=== PATIENT | female | born 1990 | race Caucasian/White ===

== ENCOUNTER 2020-07-10 15:20 | Outpatient (REF) | payer MEDICARE, MEDICAID, SELFPAY ==
--- NOTE | 2020-07-10 16:11 | XR_ITS ---
EXAMINATION: XR CHEST CLINICAL INFORMATION: Generalized lymphadenopathy. COMPARISON: None TECHNIQUE: 2 views of the chest were obtained. FINDINGS: No significant abnormality is noted involving the heart, lungs, mediastinum, bony thorax or soft tissues. XR/XR chest 2V IMPRESSION: Unremarkable examination.
[2020-07-10 16:23] LABS: Basophils Percent Auto 0.3 % (0-2); Eosinophils Percent Auto 1.1 % (0-4); Hematocrit 39.9 % (37-47); Hemoglobin 12.6 g/dl (12.0-16.0); Imm Gran Abs Auto 0.05 X10*3/uL (0.00-0.03); Imm Gran Pct Auto 1.3 % (0.0-0.4); Lymphocytes Absolute Auto 0.7 X10*3/uL (1.2-4.9); Lymphocytes Percent Auto 17.6 % (20-40); MANUAL DIFF FLAG SCAN; Mean Corpuscular HGB Conc 31.6 g/dl (31.0-35.0); Mean Corpuscular Hemoglobin 26.2 pg (27.0-33.0); Mean Platelet Volume 11.1 fL (9.4-12.3); Monocytes Absolute Auto 0.5 X10*3/uL (0.1-1.2); Monocytes Percent Auto 12.2 % (2-11); Neutrophils Absolute Auto 2.5 X10*3/uL (2.0-8.3); Neutrophils Percent Auto 67.5 % (45-73); Platelet Count 203 X10*3/uL (160-400); Red Blood Count 4.81 X10*6/uL (4.20-5.50); Red Cell Distribution Width 14.2 % (11.0-16.0); SCAN SMEAR FLAG 1; White Blood Count 3.8 X10*3/uL (4.8-10.8)
[2020-07-10 16:47] LABS: Anion Gap 9 (12-20); Blood Urea Nitrogen 21 mg/dL (9-16); Calcium 8.2 mg/dL (8.4-10.2); Carbon Dioxide 29 mmol/L (22-29); Chloride 109 mmol/L (96-108); Estimated Glomerular Filt Rate > 60; Glucose Random 82 mg/dL (60-115); Sodium 143 mmol/L (135-145)
[2020-07-10 16:55] LABS: SLIDE REVIEW VERIFIED
[2020-07-10 17:01] LABS: TSH reflex Free T4 1.83 mIU/mL (0.32-4.0)
== END 2020-07-10 15:21 | disposition home or self-care (01) ==
LOC: HO.LAB 15:20
PROVIDERS: PCP Student in an Organized Health Care Education/Training Program; Visit Provider Internal Medicine
DX: R53.83 Other fatigue (principal); R59.1 Generalized enlarged lymph nodes
CPT/HCPCS: 36415; 71046; 80048; 84443; 85025; 99212

== ENCOUNTER → 2020-08-21 15:47 | Outpatient (BNVA) | payer MEDICARE, MEDICAID, SELFPAY | PROVIDERS: PCP Student in an Organized Health Care Education/Training Program; Visit Provider Internal Medicine | DX: R59.1 Generalized enlarged lymph nodes (principal); R53.83 Other fatigue | CPT/HCPCS: 99212 ==

== ENCOUNTER 2020-10-30 15:49 | Outpatient (REF) | payer MEDICARE, MEDICAID, SELFPAY ==
--- NOTE | ~2020-10-30 | US_ITS ---
EXAMINATION: US RETROPERITONEAL LIMITED (RENAL ONLY) CLINICAL INFORMATION: History of kidney stones. COMPARISON: Ultrasound abdomen complete 01/08/2019 [address] 04/27/2018. CT abdomen and pelvis 11/02/2018. Renal ultrasound 12/09/2017 and 05/01/2017. TECHNIQUE: Real-time imaging of the kidneys. FINDINGS: RIGHT KIDNEY: 8.5 x 3.4 x 4.3 cm (SAG x AP x TRV). The kidney is normal in size and contour with slight increase echogenicity. Renal cortical thickness is normal. No focal parenchymal lesions or hydronephrosis. There there are echogenic calculi visualized. Upper pole calculi measures 0.5 x 0.3 x 0.3, mid pole calculi measure 0.5 x 0.3 x 0.5 cm and lower pole calculi measure 0.5 x 0.5 x 0.3 cm. LEFT KIDNEY: 10.2 x 5.1 x 6.0 cm (SAG x AP x TRV). The kidney is normal in size, contour, and echogenicity. Renal cortical thickness is normal. No focal parenchymal lesions or hydronephrosis. 2 echogenic stones are seen in left kidney as well. A midpole echogenic stone measures 0.6 x 0.4 x 0.4 cm, a lower pole echogenic stone measures 0.4 x 0.3 x 0.4 cm and a lower pole echogenic stone measures 0.6 x 0.3 x 0.4 cm. US/US renal BI IMPRESSION: Bilateral nonobstructive echogenic renal calculi. There is no hydronephrosis.
== END 2020-10-30 15:50 | disposition home or self-care (01) ==
LOC: HO.US 15:49
PROVIDERS: PCP Student in an Organized Health Care Education/Training Program; Visit Provider Internal Medicine Nephrology
DX: Z87.442 Personal history of urinary calculi (principal)
CPT/HCPCS: 76775

== ENCOUNTER 2021-03-25 12:04 | Outpatient (REF) | payer MEDICARE, MEDICAID, SELFPAY ==
[2021-03-25 13:42] LABS: MANUAL DIFF FLAG NO
[2021-03-25 14:03] LABS: Basophils Percent Auto 0.3 % (0-2); Eosinophils Percent Auto 0.6 % (0-4); Hematocrit 35.2 % (37-47); Hemoglobin 11.3 g/dl (12.0-16.0); Imm Gran Abs Auto 0.02 X10*3/uL (0.00-0.03); Imm Gran Pct Auto 0.6 % (0.0-0.4); Lymphocytes Absolute Auto 0.4 X10*3/uL (1.2-4.9); Lymphocytes Percent Auto 11.4 % (20-40); Mean Corpuscular HGB Conc 32.1 g/dl (31.0-35.0); Mean Corpuscular Hemoglobin 26.5 pg (27.0-33.0); Mean Corpuscular Volume 82.4 fL (80-98); Mean Platelet Volume 12.2 fL (9.4-12.3); Monocytes Absolute Auto 0.3 X10*3/uL (0.1-1.2); Monocytes Percent Auto 9.5 % (2-11); Neutrophils Absolute Auto 2.5 X10*3/uL (2.0-8.3); Neutrophils Percent Auto 77.6 % (45-73); Platelet Count 178 X10*3/uL (160-400); Red Blood Count 4.27 X10*6/uL (4.20-5.50); White Blood Count 3.2 X10*3/uL (4.8-10.8)
[2021-03-25 14:19] LABS: Anion Gap 11 (12-20); Blood Urea Nitrogen 19 mg/dL (9-16); Calcium 9.3 mg/dL (8.4-10.2); Carbon Dioxide 21 mmol/L (22-29); Chloride 112 mmol/L (96-108); Estimated Glomerular Filt Rate > 60; Iron 96 mcg/dL (30-160); Percent Iron Saturation 39 % (15-50); Potassium 3.3 mmol/L (3.3-5.1); Sodium 141 mmol/L (135-145); Total Iron Binding Capacity 248 mcg/dL (228-428); Unsaturated Iron Binding 152 ug/dL; Uric Acid 3.2 mg/dL (2.4-5.7)
[2021-03-25 14:40] LABS: Ferritin 399 ng/mL (10-122)
[2021-03-25 16:01] LABS: Appearance Urine HAZY; Color Urine YELLOW; Glucose Urine UA NEG (NEG); Leukocyte Esterase Urine NEG (NEG); Nitrite Urine NEG (NEG); PH 6.5 (5.0-8.0); Urine Blood 3+ (NEG); Urine Ketones NEG (NEG); Urine Protein 1+ MG/DL (NEG-TRACE)
[2021-03-25 16:09] LABS: Creatinine Urine 154.95 mg/dL; Microalbum/Creatinine Ratio Ur 31.6 ug/mg cr; Protein/Creatinine Ratio, Ur 0.28 (<0.2); Total Protein Urine Random 43 mg/dL (<12)
[2021-03-25 16:42] LABS: Squamous Epithelial Cell Urine 1+ /LPF
[2021-03-25 16:44] LABS: Bacteria Urine 1+ /LPF
== END 2021-03-25 12:05 | disposition home or self-care (01) ==
LOC: HO.LAB 12:04
PROVIDERS: PCP Student in an Organized Health Care Education/Training Program; Visit Provider Internal Medicine Nephrology
DX: D68.62 Lupus anticoagulant syndrome (principal); Z87.442 Personal history of urinary calculi
CPT/HCPCS: 36415; 80051; 81001; 81003; 82043; 82310; 82565; 82728; 83540; 84156; 84520; 84550; 85025

== ENCOUNTER → 2021-08-21 16:11 | Outpatient (BNVA) | payer MEDICARE, MEDICAID, SELFPAY | PROVIDERS: PCP Student in an Organized Health Care Education/Training Program; Visit Provider Internal Medicine | DX: J45.909 Unspecified asthma, uncomplicated (principal); R91.8 Other nonspecific abnormal finding of lung field; R59.1 Generalized enlarged lymph nodes; R53.83 Other fatigue | CPT/HCPCS: 99212 ==

== ENCOUNTER 2024-04-15 07:57 | Emergency (ER) | payer OTHER, SELFPAY ==
--- NOTE | ~2024-04-15 | XR_ITS ---
EXAMINATION: XR CHEST CLINICAL INFORMATION: Dizziness COMPARISON: 07/10/2020. TECHNIQUE: AP and lateral views of the chest FINDINGS: The cardiac, hilar, and mediastinal contours are normal. The lungs demonstrate hazy opacity in the right base on the frontal projection, not definitively present on the lateral projection. This could be artifact or early developing pneumonia. This does represent a change from prior radiographs. Left lung is clear. No effusions or pneumothoraces. No soft tissue or bony abnormalities. XR/XR chest 2V IMPRESSION: 1. Patchy opacity in the right base on the frontal projection, not definitively verifiable on the lateral projection. Findings may be secondary to artifact from overlapping structures, however could represent an early developing pneumonic consolidation. Correlate with clinical symptomatology. 2. Lungs otherwise clear. Heart and mediastinal contours normal. Electronically signed by: Nathan Ivory MD 04/15/2024 09:54 AM EDT
--- NOTE | ~2024-04-15 | CT_ITS ---
EXAMINATION: CT HEAD WITHOUT CONTRAST CLINICAL INFORMATION: Lightheadedness. COMPARISON: None available. TECHNIQUE: Contiguous axial imaging was performed from the skull base to vertex without intravenous administration of contrast. This CT examination was performed using dose optimization techniques as appropriate, variously including the following: *Automated exposure control *Adjustment of mA and/or kV according to patient size (this includes techniques or standardized protocols for targeted exams where dose is matched to indication/reason for exam; i.e. extremities or head) *Use of iterative reconstruction technique DLP: 591 mGy-cm FINDINGS: No acute intracranial hemorrhage. No mass effect or midline shift. No parenchymal lesion. The العلي-white differentiation is maintained. No extra-axial fluid collection. The ventricles and sulci are unremarkable. The basal cisterns are patent. The calvarium is intact. The visualized paranasal sinuses and mastoid air cells are clear. CT/CT head/brain wo IV con IMPRESSION: No acute intracranial pathology. Electronically signed by: River Ramachandran MD 04/15/2024 10:59 AM EDT
[2024-04-15 08:12] VITALS: BP 137/84; PULSE 79; RESP 18; TEMP 37; O2SAT 100; BMI 18.1
--- NOTE | 2024-04-15 08:31 | ED_ITS ---
HPI - General Adult General Chief complaint: Dizziness Stated complaint: lightheaded, fall Time Seen by Provider: 04/15/24 08:30 Source: patient Mode of arrival: ambulatory Limitations: no limitations History of Present Illness ED Provider: Chata Tanner PA-C HPI narrative: Patient is a 33 year old assigned female at with no reported medical history presenting to the emergency department today with lightheadedness. Patient states that this morning she became lightheaded and felt like she was going to pass out. Patient states that she still feels lightheaded but lying down help some. Patient denies any dizziness, abdominal pain, nausea, vomiting, fever, chills, blurry vision, double vision, loss of vision, chest pain, difficulty breathing, shortness of breath, back pain, night sweats, pain with urination, increased urinary frequency, increased urinary urgency, blood in her urine or stool, syncope or a near syncopal episode, recent trauma or falls, bowel incontinence, bladder incontinence, or any other complaints at this time. Relieving factors: none Exacerbating factors: none Associated symptoms: denies other symptoms Treatments prior to arrival: none Related Data Home Medications ?Medication ?Instructions ?Recorded ?Confirmed cetirizine 10 mg tablet (Zyrtec) 10 mg PO DAILY PRN 07/10/20 07/10/20 hydroxychloroquine 200 mg tablet 200 mg PO DAILY 08/21/21 (Plaquenil) prednisone 10 mg tablet 15 mg PO DAILY 08/21/21 Allergies Allergy/AdvReac Type Severity Reaction Status Date / Time metronidazole [From FLAGYL] Allergy Unknown UNKNOWN Verified 04/15/24 08:14 Review of Systems 2 Constitutional: Constitutional: Reports no additional constitutional complaints, Denies chills, Denies fever(s) and Denies night sweats Comments: lightheadedness Eyes: Eyes: Reports no additional eye complaints, Denies blurry vision, Denies change in vision, Denies diplopia, Denies eye discharge, Denies loss of vision and Denies eye pain ENT: Denies dizziness Cardiovascular: Cardiovascular: Reports no additional cardiovascular complaints, Denies chest pain, Denies lightheadedness, Denies Loss of Consciousness and Denies dyspnea Respiratory: Respiratory: Reports no additional respiratory complaints and Denies dyspnea Gastrointestinal: Gastrointestinal: Reports no additional gastrointestinal complaints, Denies abdominal pain, Denies melena, Denies hematochezia, Denies change in bowel habits and Denies change in stool character Genitourinary: Genitourinary: Denies hematuria, Denies urinary frequency, Denies dysuria, Denies urinary incontinence, Denies urinary hesitancy and Denies urinary urgency Musculoskeletal: Musculoskeletal: Reports no additional musculoskeletal complaints, Denies numbness and Denies tingling Neurologic: Denies dizziness, Denies loss of vision, Denies numbness and Denies tingling Psychiatric: Psychiatric: Reports no additional psychiatric complaints Endocrine: Endocrine: Reports no additional endocrine complaints Hematologic/Lymphatic: Hematologic/Lymphatic: Reports no additional hematologic/lymphatic complaints Allergic/Immunologic: Allergic/Immunologic: Reports no additional allergic/immunologic complaints [facility] Past Medical History Attestation statement: The following information was validated with the patient. Source: old records reviewed and nursing notes reviewed Medical History Lymphadenopathy Fatigue Social History Social History Smoked in Last 30 Days: No Advance Directives: No Advance Directives Information Provided: No Do you have a plan to hurt others: No Plan Physical Exam ED Vital Signs: Vital Signs - 24 hr 04/15/24 08:12 04/15/24 08:41 04/15/24 11:32 Temperature 98.6 F 98.7 F 98.7 F Pulse Rate 79 69 69 Respiratory Rate 18 18 18 Blood Pressure 137/84 125/81 125/81 Pulse Oximetry 100 100 100 Oxygen Delivery Method Room Air Room Air Room Air BMI result Body Mass Index 18.1 Const General: cooperative, no acute distress, alert and awake Nutritional Appearance: well nourished Orientation/consciousness: patient oriented x3 Limitations: no limitations [facility] Head: Yes normal to inspection and Yes atraumatic Ears: hearing grossly normal bilaterally and external ears normal General nose exam: Normal external nose present, no nasal discharge noted and no epistaxis Face and sinus: Yes normal facial exam, No abrasion and No laceration Mouth: Normal oral and palatal mucosa present, no drooling and no muffled voice Eyes General: appearance normal, both eyes and all related structures Periorbital: periorbital findings normal Eyelids: Yes eyelids normal Conjunctivae: conjunctivae normal Pupils: Equal, round and reactive pupils present EOM: EOMs intact bilaterally Neck Neck: Yes normal visual inspection, Yes full ROM and Yes no lymphadenopathy Chest Chest palpation & inspection: normal inspection of the chest Resp Effort & Inspection: normal respiratory effort and able to speak in complete sentences GI Inspection: Yes normal to inspection Neuro General: patient oriented x3 and moves all extremities Cranial nerves: Yes Equal, round and reactive pupils present Cognition (Neuro): normal cognition Extrem General: Yes normal to inspection, Yes full ROM and Yes capillary refill normal Psych Appearance: grossly normal Mental Status: mental status grossly normal Affect: normal affect Attitude: cooperative Thought process: Normal thought process present Thought content: Normal thought content present Insight: Good insight present (Psych) Medical Decision Making Medical Decision Making MDM Narrative: Patient is a 33 year old assigned female at with no reported medical history presenting to the emergency department today with lightheadedness. Patient's physical exam was unremarkable. Patient's blood work was unremarkable. Patient's urine showed no acute process. Patient's EKG was unremarkable. Patient's chest x-ray and head CT showed no acute process. I explained my physical exam findings as well as all test results to the patient and the patient's partner. I answered all questions asked by the patient and the patient's partner. Patient was able to tolerate PO fluid while in the department and was encouraged to increase her PO fluid intake. I stressed the importance of the patient taking her medication as directed (either prescribed or as the over the counter packaging recommends). I stressed the importance of the patient following up with her primary care provider. I stressed the importance of the patient returning to the emergency department immediately if her symptoms were to worsen or if she were to develop any dizziness, shortness of breath, difficulty breathing, chest pain, blurry vision, loss of vision, nausea, vomiting, abdominal pain, fever, chills, back pain, or any other complaints. Patient and the patient's partner verbalized agreement and understanding with this treatment plan and discharge. Differential Diagnosis Differential Diagnoses: The differential diagnosis associated with the presentation includes Lightheadedness Electrolyte abnormality Hypoglycemia Near syncope Orthostatic hypotension Admission/Observation Consideration of admission/observation: Escalation of care including admission/observation considered Patient would have been admitted to the hospital had her work up had any findings where hospital admission was appropriate and her clinical presentation warranted hospital admission. Lab Data [facility] Lab Attestation statement: I reviewed the patient's lab results. My interpretation of these results are in the [facility] Rationale portion of this note. 04/15/24 08:08 04/15/24 08:25 Labs: Lab Results 04/15/24 04/15/24 04/15/24 Range/Units 08:08 08:25 08:49 WBC 2.1 L (4.8-10.8) X10*3/uL RBC 4.14 L (4.20-5.50) X10*6/uL Hgb 11.1 L (12.0-16.0) g/dl Hct 34.1 L (37.0-47.0) % MCV 82.4 (80.0-98.0) fL MCH 26.8 L (27.0-33.0) pg MCHC 32.6 (31.0-35.0) g/dl RDW 14.3 (11.0-16.0) % Plt Count 147 L (160-400) X10*3/uL MPV 11.2 (9.4-12.3) fL Immature Gran % (Auto) 0.5 H (0.0-0.4) % Neut % (Auto) 66.1 (45-73) % Lymph % (Auto) 16.0 L (20-40) % [place] % (Auto) 16.9 H (2-11) % Eos % (Auto) 0.0 (0-4) % Baso % (Auto) 0.5 (0-2) % Lymph # (Auto) 0.3 L (1.2-4.9) X10*3/uL [place] # (Auto) 0.4 (0.1-1.2) X10*3/uL Eos # (Auto) 0.0 (0.0-0.4) X10*3/uL Baso # (Auto) 0.0 (0.0-0.2) X10*3/uL Abs Immat Gran (auto) 0.01 (0.00-0.03) X10*3/uL Absolute Neuts (auto) 1.4 L (2.0-8.3) x10*3/uL Absolute Nucleated RBC 0.000 (0.0-0.012) X10*3/uL Nucleated RBC % (auto) 0.0 (0.0-0.2) /100WBC Sodium 140 (135-145) mmol/L Potassium 3.6 (3.3-5.1) mmol/L Chloride 109 H (96-108) mmol/L Carbon Dioxide 25 (22-29) mmol/L Anion Gap 10 L (12-20) BUN 15 (9-16) mg/dL Creatinine 0.86 (0.5-1.4) mg/dL Estim Creat Clear Calc 71.1 Estimated GFR > 60 Random Glucose 87 (60-115) mg/dL Calcium 9.1 (8.4-10.2) mg/dL Total Bilirubin 0.4 (0.0-1.0) mg/dL AST 16 (5-31) U/L ALT 14 (0-31) U/L Alkaline Phosphatase 66 (39-117) U/L Total Protein 7.8 (6.5-8.0) g/dL Albumin 4.4 (3.5-5.0) g/dL Beta HCG, Quant < 2 mIU/mL Urine Color Yellow Urine Appearance Clear Urine pH 6.5 (5.0-9.0) Ur Specific [place] 1.020 (1.005-1.025) Urine Protein 30 (1+) H (Neg-Trace) mg/dL Urine Glucose (UA) Negative (Negative) mg/dL Urine Ketones Negative (Negative) mg/dL Urine Blood Negative (Negative) Urine Nitrite Negative (Negative) Ur Leukocyte Esterase Negative (Negative) Urine RBC 0-2 (0-2) /HPF Urine WBC 0-5 (0-5) /HPF Ur Squamous Epith Cells 3-5 (0-2) /HPF Urine Bacteria None Seen (None Seen) Hyaline Casts 0-2 (0-2) /LPF Influenza Type A (PCR) NEGATIVE (Negative) Influenza Type B (PCR) NEGATIVE (Negative) RSV RNA Qual (PCR) NEGATIVE (Negative) SARS-CoV-2 RNA (RT-PCR) NEGATIVE (Negative) Independent Interpretation I performed an independent interpretation of an: EKG, Plain X-Ray and CT Scan Interpretation: My interpretation is in agreement with the radiologist's impression of these imaging studies. L EXAMINATION: XR CHEST CLINICAL INFORMATION: Dizziness COMPARISON: 07/10/2020. TECHNIQUE: AP and lateral views of the chest FINDINGS: The cardiac, hilar, and mediastinal contours are normal. The lungs demonstrate hazy opacity in the right base on the frontal projection, not definitively present on the lateral projection. This could be artifact or early developing pneumonia. This does represent a change from prior radiographs. Left lung is clear. No effusions or pneumothoraces. No soft tissue or bony abnormalities. XR/XR chest 2V IMPRESSION: 1. Patchy opacity in the right base on the frontal projection, not definitively verifiable on the lateral projection. Findings may be secondary to artifact from overlapping structures, however could represent an early developing pneumonic consolidation. Correlate with clinical symptomatology. 2. Lungs otherwise clear. Heart and mediastinal contours normal. Electronically signed by: Nathan Ivory MD 04/15/2024 09:54 AM EDT [employer] Dictated By: Nathan Ivory MD Signed By: Electronically signed by Nathan Ivory MD 04/15/24 0954 EXAMINATION: CT HEAD WITHOUT CONTRAST CLINICAL INFORMATION: Lightheadedness. COMPARISON: None available. TECHNIQUE: Contiguous axial imaging was performed from the skull base to vertex without intravenous administration of contrast. This CT examination was performed using dose optimization techniques as appropriate, variously including the following: *Automated exposure control *Adjustment of mA and/or kV according to patient size (this includes techniques or standardized protocols for targeted exams where dose is matched to indication/reason for exam; i.e. extremities or head) *Use of iterative reconstruction technique DLP: 591 mGy-cm FINDINGS: No acute intracranial hemorrhage. No mass effect or midline shift. No parenchymal lesion. The العلي-white differentiation is maintained. No extra-axial fluid collection. The ventricles and sulci are unremarkable. The basal cisterns are patent. The calvarium is intact. The visualized paranasal sinuses and mastoid air cells are clear. CT/CT head/brain wo IV con IMPRESSION: No acute intracranial pathology. Electronically signed by: River Ramachandran MD 04/15/2024 10:59 AM EDT RP Dictated By: River Ramachandran MD Signed By: Electronically signed by River Ramachandran MD 04/15/24 1059 Vent. Rate: 068 BPM Atrial Rate: 068 BPM P-R Int: 106 ms QRS Dur: 084 ms QT Int: 392 ms P-R-T Axes: 049 077 068 degrees QTc Int: 416 ms Sinus rhythm with short NE Otherwise normal ECG When compared with ECG of 22-JUN-2017 01:33, No significant change was found DD/ [id number] Radiology Impression Discussion of test interpretation with radiology: I have reviewed the radiologist's reading. Independent Historian Clinical information obtained from an independent historian. History obtained from or confirmed by: Other (patient's partner provided additional history and confirmed the history provided by the patient.) Discharge Plan Discharge Clinical Impression: Light-headedness Patient Disposition: Home, Self-Care Instructions: Lightheadedness (ED) Additional Instructions: Follow up with your primary care provider. Return to the emergency department immediately if your symptoms worsen or if you develop any dizziness, shortness of breath, difficulty breathing, chest pain, blurry vision, loss of vision, nausea, vomiting, abdominal pain, fever, chills, back pain, or any other complaints. Prescriptions: No Action cetirizine [Zyrtec] 10 mg tablet 10 mg PO DAILY PRN prednisone 10 mg tablet 15 mg PO DAILY hydroxychloroquine [Plaquenil] 200 mg tablet 200 mg PO DAILY Referrals: [facility] [place] Family Medicine [Provider Group] (Call to establish and follow up with a primary care provider. If you already have a primary care provider, please follow up with them.) [facility] [place] [facility] [Provider Group] (Call to establish and follow up with a primary care provider. If you already have a primary care provider, please follow up with them.) [facility] [place] [facility] [Provider Group] (Call to establish and follow up with a primary care provider. If you already have a primary care provider, please follow up with them.) Stand Alone Forms: Work/School Release Interventions: ED Discharge Assessment Last Done: 04/15/24 11:32 Discharge Date/Time: 04/15/24 11:32 Print Language: Tanzanian
--- NOTE | 2024-04-15 08:32 | ECG_ITS ---
Test Reason : dizziness Blood Pressure : / mmHG Vent. Rate : 068 BPM Atrial Rate : 068 BPM P-R Int : 106 ms QRS Dur : 084 ms QT Int : 392 ms P-R-T Axes : 049 077 068 degrees QTc Int : 416 ms Sinus rhythm with short ID Otherwise normal ECG When compared with ECG of 22-JUN-2017 01:33, No significant change was found Referred By: Chata Tanner Electronically Signed By:DEE SOLANO
[2024-04-15 08:34] LABS: Basophils Percent Auto 0.5 % (0-2); Hematocrit 34.1 % (37.0-47.0); Hemoglobin 11.1 g/dl (12.0-16.0); Imm Gran Abs Auto 0.01 X10*3/uL (0.00-0.03); Imm Gran Pct Auto 0.5 % (0.0-0.4); Lymphocytes Absolute Auto 0.3 X10*3/uL (1.2-4.9); Mean Corpuscular HGB Conc 32.6 g/dl (31.0-35.0); Mean Corpuscular Hemoglobin 26.8 pg (27.0-33.0); Mean Corpuscular Volume 82.4 fL (80.0-98.0); Mean Platelet Volume 11.2 fL (9.4-12.3); Monocytes Absolute Auto 0.4 X10*3/uL (0.1-1.2); Monocytes Percent Auto 16.9 % (2-11); Neutrophils Absolute Auto 1.4 x10*3/uL (2.0-8.3); Neutrophils Percent Auto 66.1 % (45-73); Platelet Count 147 X10*3/uL (160-400); Red Blood Count 4.14 X10*6/uL (4.20-5.50); Red Cell Distribution Width 14.3 % (11.0-16.0)
[2024-04-15 08:41] VITALS: BP 125/81; PULSE 69; RESP 18; TEMP 37.1; O2SAT 100
[2024-04-15 08:41] LABS: White Blood Count 2.1 X10*3/uL (4.8-10.8)
--- NOTE | 2024-04-15 08:48 | PC.NURSE ---
pt is alert and oriented, skin appropriate for ethnicity, respirations even and unlabored, ls clear, pt reports while making her breakfast started to feel lightheaded to the point that she almost fell down, but never actual fell down, also states she had a hard time breathing when this occurred but thinks its because she was worried/scared, does states that the lightheadedness improved but still there, denies headache and no visual disturbances. all nuero's intact, no visible facial droop/no drift and hand grasp strong and equal, vs stable at this time
[2024-04-15 08:50] LABS: Alanine Aminotransferase 14 U/L (0-31); Albumin Level 4.4 g/dL (3.5-5.0); Alkaline Phosphatase 66 U/L (39-117); Anion Gap 10 (12-20); Aspartate Amino Transferase 16 U/L (5-31); Bilirubin Total 0.4 mg/dL (0.0-1.0); Blood Urea Nitrogen 15 mg/dL (9-16); Calcium 9.1 mg/dL (8.4-10.2); Carbon Dioxide 25 mmol/L (22-29); Chloride 109 mmol/L (96-108); Creatinine Clr Calc Pharmacy 71.1; Estimated Glomerular Filt Rate > 60; Glucose Random 87 mg/dL (60-115); Potassium 3.6 mmol/L (3.3-5.1); Sodium 140 mmol/L (135-145); Total Protein 7.8 g/dL (6.5-8.0)
[2024-04-15 08:59] LABS: Appearance Urine Clear; Color Urine Yellow; Glucose Urine UA Negative (Negative); Leukocyte Esterase Urine Negative (Negative); Nitrite Urine Negative (Negative); PH 6.5 (5.0-9.0); UMIC TRIGGER UACC YES; Urine Blood Negative (Negative); Urine Ketones Negative (Negative); Urine Protein 30 (1+) mg/dL (Neg-Trace)
[2024-04-15 09:04] LABS: Bacteria Urine None Seen (None Seen); Hyaline Casts Urine 0-2 /LPF (0-2); RBC Urine 0-2 /HPF (0-2); WBC Urine 0-5 /HPF (0-5)
[2024-04-15 09:16] LABS: HCG Quantitative < 2 mIU/mL
[2024-04-15 09:35] LABS: Influenza A PCR NEGATIVE (Negative); Influenza B PCR NEGATIVE (Negative); Resp Syncy Virus RNA Qual PCR NEGATIVE (Negative); SARS COV2 PCR INHOUSE NEGATIVE (Negative)
--- NOTE | 2024-04-15 10:00 | PC.NURSE ---
holding off on the IV fluids do to the shortage of IV fluids, pt is currently tolerating po liquids and hoping that the pt's symptoms will improve with po hydration
[2024-04-15 11:32] VITALS: BP 125/81; PULSE 69; RESP 18; TEMP 37.1; O2SAT 100
== END 2024-04-15 11:32 | disposition home or self-care (01) ==
PROVIDERS: Physician Assistant Medical; Emergency Provider Emergency Medicine
DX: R42 Dizziness and giddiness (principal); Z03.818 Encounter for observation for suspected exposure to other biological agents ruled out
CPT/HCPCS: 0241U; 36415; 70450; 71046; 80053; 81001; 81003; 84702; 85025; 93005; 99284

== ENCOUNTER → 2024-04-15 08:32 | Outpatient (BNV) | payer OTHER, SELFPAY | PROVIDERS: Emergency Provider Emergency Medicine; Visit Provider Radiology Diagnostic Radiology | DX: R42 Dizziness and giddiness (principal) | CPT/HCPCS: 71046 ==

== ENCOUNTER → 2024-04-15 08:32 | Outpatient (BNV) | payer OTHER, SELFPAY | PROVIDERS: Emergency Provider Emergency Medicine; Visit Provider Internal Medicine | DX: R42 Dizziness and giddiness (principal) | CPT/HCPCS: 93010 ==

== ENCOUNTER 2025-06-01 20:26 | Emergency (ER) | payer OTHER, SELFPAY ==
--- OUTSIDE RECORDS SUMMARY | 2025-05-29 11:30 | XMS_ITS | Encounter Summary ---
Author Organization [employer] Address [address] [place] [address] Care Team Providers Care Structural Fitter Name Role Phone Oksana Nicole RETAIL PHARMACIST Primary Care Provider [phone] [phone] Reason for Visit * Reason Comments Dental Pain Pt came in as an johanna rgency with pain on her lower right side . 1 pa taken Encounter Details Date Type Department Care Team (Late st Contact Info) Description 05/29/2025 11:30 AM EST Office Visit [facility] ADULT DENTAL [address] [place] [address] Michael Adams, ASIAS [address] [place] [address] Open fracture of tooth, initial encounter (Primary Dx); Pain, dental Social History Tobacco Use Types Packs/Day Years Used Date Smoking Tobacco: Never Passive Smoke Exposure: Never Smokeless Tobacco: Never Alcohol Use Standard Drinks/Week Comments Defer 0 (1 standard drink = 0.6 oz pur e alcohol) Alcohol Answer Date Recorded How often do you have a drink containing alcohol ? 0 05/29/2025 Average Number of Drinks Not on file 025 How often do you have six or more drinks on one occasion? 0 05/29/2025 Depression Answer Date Recorded Patient Health Questionnaire-9 Score 3 05/05/2025 Patient Health Questionnaire-9 Score 3 05/05/2025 Last PHQ-9: Questionnaire Data Not on file 1 07/05/2024 Housing Stability Answer Date Recorded What is your housing situation today? I have prem candelaria 05/05/[address] you li ve. Do you have problems with any of the following? None of the above 05/05/2025 Food Insecurity Answer Date Recorded Within the past 12 months, y ou worried that your food would run out before you got money to buy more: Sometimes True 2024 Within the past 12 months,th e food you bought just didn't last and you didn't have enough money to get more: Sometimes True 05/05/2025 Transportation Answer Date Recorded In the past 12 months, has l ack of transportation kept you from medical appts, meetings, work or from getting things needed for daily living? Yes, it has kept me from medical appointments or getting medications. 05/05/2025 Utilities Answer Date Recorded In the past 12 months, has t he electric, gas, oil or water company threatened to shut off services in your home? No 05/05/2025 Depression Answer Date Recorded Patient Health Questionnaire-2 Score 0 05/05/2025 Internet Access Answer Date Recorded Internet Access Q1 Yes 05/05/2025 Internet Access Q2 Not on file 05/05/2025 Comments Unknown Sex and Gender Information Value Date Recorded Sex Assigned at Female 04/28/2022 10:15 AM EDT Legal Sex Female 10:15 AM EDT Gender Identity Female 02/11/2024 8:14 AM EDT Sexual Orientation Don't know 02/11/2024 8: 13 AM EDT documented as of this encounter Last Filed Vital Signs Vital Sign Reading Time Taken Comments Blood Pressure 116/66 05/29/2025 11:39 AM EST Pulse - - Temperature - - Respiratory Rate - - Oxygen Saturation - - Inhaled Oxygen Concentration - - Weight - - Height - - Body Mass Index - - documented in this encounter Progress Notes * Michael Adams DDS - 05/29/2025 11:30 AM EST Patient ID: Bert Sahu is a 35 y.o. female. Time Out: Timeout Date: 05/29/25, Timeout Time: 1137 (ext on tooth#30 , 1 pa taken) Location: [facility] Tooth: Mandible and #30 Procedure: Emergency, X rays and extraction Verified the above with patient, medical office assistant, and provider. Confirmed via patient's chart, intraorally and by radiographs. Pharmacy Sales Representative: not applicable Chief Complaint Patient presents with Dental Pain Pt came in as an emergency with pain on her lower right side . 1 pa taken Medical Hx: Vitals: Blood pressure 116/66. Medical History[1] Medications: Encounter Medications[2] Consent Obtained: The risks, benefits, indications, potential complications, and alternatives were explained to the patient and informed consent was obtained with good understanding. Treatment Provided: Dental procedures in this visit D0140 - LIMITED ORAL EVALUATION - PROBLEM FOCUSED D0220 - INTRAORAL - PERIAPICAL FIRST RADIOGRAPHIC IMAGE D7140 - EXTRACTION, ERUPTED TOOTH OR EXPOSED ROOT (ELEVATION/FORCEPS REMOVAL) 30 D9450 - CASE PRESENTATION, DETAILED AND EXTENSIVE TREATMENT PLANNING Diagnosis: Fractured tooth, pain, non-restorable tooth Topical: 20% Benzocaine Anesthesia: 2% Lidocaine (Xylocaine) w/ 1:100,000 epinephrine Number of Cartridges: 2 Injection Type: Inferior alveolar nerve block, Long buccal nerve block, and Intrapapillary injection Confirmed profound anesthesia. Pharyngeal curtain and bite block placed. Removed tooth with elevators and forceps. Apices intact. Surgical Extraction: Yes, #30 Socket curetted & irrigated with sterile water. Compressed alveolar bone. Sutures: None Needed All adjacent teeth intact. Hemostasis achieved. Complications: None pt tolerated procedure well. Prescription sent to [facility] on file. Written and verbal post-op instructions given. Patient discharged in stable condition; ambulatory, alert, and oriented. NV: F/U as needed / EXAM / add tooth Retail Account Representative: Ivon Huggins Dentist: Michael Adams DDS [1] Past Medical History: Diagnosis Date Lupus [2] Outpatient Encounter Medications as of 05/29/2025 Medication Sig Dispense Refill belimumab (Benlysta) 120 mg reconstituted solution IV injection Infuse into a venous catheter. Diclofenac Sodium (Voltaren) 1 % gel Apply to affected areas twice daily 150 g 11 hydroxychloroquine (Plaquenil) 200 MG tablet Take 200 mg by mouth in the morning. ibuprofen 600 MG tablet Take 1 tablet (600 mg) by mouth every 6 (six) hours if needed for mild painfor up to 20 doses. 20 tablet 0 chlorhexidine (Peridex) 0.12 % solution Swish 15 mL morning and night for 1 minute. Spit, do not swallow. Do not eat or drink for 30 minutes following use. (Patient not taking: Reported on 05/29/2025)473 mL 0 Fhmktihv-Mabylptbkcwv-UNX 400 (Artificial Tears) 0.2-0.2-1 % solution Administer 1 drop into affected eye(s) if needed in the morning, at noon, and at bedtime. (Patient not taking: Reported on 05/29/2025) ibuprofen 600 MG tablet Take 1 tablet (600 mg) by mouth 3 times daily. (Patient not taking: Reported on 05/29/2025) 90 tablet 0 Levonorgestrel 19.5 MG intrauterine device 1 each by Intrauterine route. (Patient not taking: Reported on 05/29/2025) No facility-administered encounter medications on file as of 05/29/2025. documented in this encounter Plan of Treatment Upcoming Encounters Date Type Department Care Team (Late st Contact Info) Description 06/15/2025 8:00 AM EST Office Visit [facility] ADULT DENTAL [address] [place], [place] [phone] Michael Adams DDS [address] [place] [address] Scheduled Orders Name Type Priority Associated Diagnoses Orde r Schedule 30 30 ADD TOOTH TO EXISTING PARTIAL DENTURE Dental Routine [address] arting 05/29/2025 documented as of this encounter Procedures Procedure Name Priority Date/Time Associated Diagnosis Comments LIMITED ORAL EVALUATION - PROBLEM FOCUSED Routine 05/29/2025 11:30 AM EST INTRAORAL - PERIAPICAL FIRST RADIOGRAPHIC IMAGE Routine 05/29/2025 11:30 AM EST 30 EXTRACTION, ERUPTED TOOTH OR EXPOSED ROOT (ELEVATION/FORCEPS REMOVAL) Routine 05/29/2025 11:30 AM EST CASE PRESENTATION, DETAILED AND EXTENSIVE TREATMENT PLANNING Routine 05/29/2025 11:30 AM EST documented in this encounter Visit Diagnoses Diagnosis Open fracture of tooth, initial encounter- Primary Pain, dental documented in this encounter Additional Health Concerns Assessment Noted Time PHQ-9 Depression Total Score: 3 05/05/20 2:47 PM EST documented as of this encounter Care Teams Structural Fitter Relationship Specialty Start Date End Date Oksana Nicole CNP [address] [place] [address] PCP - General Family Medicine 05/05/25 documented as of this encounter
[2025-06-01 20:29] VITALS: BP 149/87; PULSE 83; RESP 16; TEMP 36.8; O2SAT 100; BMI 18.3
[2025-06-01 20:43] LABS: MANUAL DIFF FLAG NO
[2025-06-01 20:45] LABS: Hematocrit 34.7 % (37.0-47.0); Hemoglobin 11.3 g/dl (12.0-16.0); Imm Gran Abs Auto 0.01 X10*3/uL (0.00-0.03); Imm Gran Pct Auto 0.3 % (0.0-0.4); Lymphocytes Absolute Auto 0.4 X10*3/uL (1.2-4.9); Mean Corpuscular HGB Conc 32.6 g/dl (31.0-35.0); Mean Corpuscular Hemoglobin 26.7 pg (27.0-33.0); Mean Corpuscular Volume 82.0 fL (80.0-98.0); NRBC Abs Auto 0.000 X10*3/uL (0.0-0.012); NRBC Pct Auto 0.0 /100WBC (0.0-0.2); Platelet Count 149 X10*3/uL (160-400); Red Blood Count 4.23 X10*6/uL (4.20-5.50); White Blood Count 3.3 X10*3/uL (4.8-10.8)
[2025-06-01 20:59] LABS: Alanine Aminotransferase 17 U/L (0-31); Albumin Level 4.9 g/dL (3.5-5.0); Alkaline Phosphatase 72 U/L (39-117); Anion Gap 12 (12-20); Aspartate Amino Transferase 18 U/L (5-31); Blood Urea Nitrogen 17 mg/dL (9-16); Calcium 8.7 mg/dL (8.4-10.2); Carbon Dioxide 21 mmol/L (22-29); Chloride 110 mmol/L (96-108); Creatinine Clr Calc Pharmacy 74.1; Estimated Glomerular Filt Rate > 60; Potassium 3.6 mmol/L (3.3-5.1); Sodium 139 mmol/L (135-145); Total Protein 7.8 g/dL (6.5-8.0)
[2025-06-01 23:00] VITALS: BP 135/84; PULSE 76; RESP 18; TEMP 36.9; O2SAT 100
[2025-06-01 23:33] LABS: Appearance Urine Clear; Glucose Urine UA Negative (Negative); PH 7.0 (5.0-9.0); Specific Gravity - Urine <= 1.005 (1.005-1.025); UMIC TRIGGER UACC YES
[2025-06-01 23:34] LABS: UPreg QC Valid YES
--- NOTE | 2025-06-01 23:40 | ED.GENADULT ---
HPI - General Adult General Chief complaint: General Medical Stated complaint: General Medical Time Seen by Provider: 06/01/25 23:06 Source: patient Limitations: no limitations History of Present Illness ED Provider: Shila Clemons PA-C HPI narrative: 35-year-old female, with recent diagnosis of COVID-19 4 days ago, presents with concern for hematuria. Patient states she visualized blood in her urine earlier today. Denies dysuria, abdominal pain, nausea, vomiting, flank pain or back pain. Patient states her urine has cleared since. She denies that she has her menstrual cycle. Related Data Home Medications ?Medication ?Instructions ?Recorded ?Confirmed cetirizine 10 mg tablet (Zyrtec) 10 mg PO DAILY PRN 07/10/20 07/10/20 hydroxychloroquine 200 mg tablet 200 mg PO DAILY 08/21/21 (Plaquenil) prednisone 10 mg tablet 15 mg PO DAILY 08/21/21 Allergies Allergy/AdvReac Type Severity Reaction Status Date / Time metronidazole (From FLAGYL) Allergy Unknown UNKNOWN Verified 06/01/25 20:31 Review of Systems Review of Systems: Yes all other systems are reviewed and are negative Constitutional: Constitutional: Denies fatigue and Denies fever(s) ENT: Reports nasal congestion Cardiovascular: Cardiovascular: Denies chest pain and Denies dyspnea Respiratory: Respiratory: Denies cough, Denies dyspnea and Denies wheezing Gastrointestinal: Gastrointestinal: Denies abdominal pain, Denies nausea and Denies vomiting Genitourinary: Genitourinary: Reports hematuria, Denies dysuria and Denies flank pain Musculoskeletal: Musculoskeletal: Denies back pain Endocrine: Endocrine: Denies fatigue Allergic/Immunologic: Allergic/Immunologic: Denies wheezing PMF Past Medical History Attestation statement: The following information was validated with the patient. Medical History Lymphadenopathy Fatigue Social History Social History Advance Directives: No Advance Directives Information Provided: No Do you have a plan to hurt others: No Plan Patient : No Physical Exam ED Vital Signs: Vital Signs - 24 hr 06/01/25 20:29 06/01/25 23:00 06/02/25 00:26 Temperature 98.3 F 98.5 F 98.5 F Pulse Rate 83 76 76 Respiratory Rate 16 18 18 Blood Pressure 149/87 H 135/84 135/84 Pulse Oximetry 100 100 100 Oxygen Delivery Method Room Air Room Air Room Air BMI result Body Mass Index 18.3 Const Other: Alert well-appearing Orientation/consciousness: patient oriented x3 Resp Effort & Inspection: normal respiratory effort Cardio Other: Normal peripheral perfusion Skin Other: Warm dry no rash Neuro General: patient oriented x3, gait normal, no focal motor deficits and CN's II-XI intact bilaterally Psych Other: Cooperative Medical Decision Making Medical Decision Making [facility] Narrative: 35-year-old female, with recent diagnosis of COVID-19 4 days ago, presents with concern for hematuria. Patient states she visualized blood in her urine earlier today. Denies dysuria, abdominal pain, nausea, vomiting, flank pain or back pain. Patient states her urine has cleared since. She denies that she has her menstrual cycle. No relevant chronic issues History: Per patient I have considered the following differential diagnoses: Urinary tract infection, interstitial cystitis, renal colic, pyelonephritis Plan: Patient here with a concern for discolored urine, just collecting a urine sample now. She has no or GI symptoms to suggest renal colic versus pyelonephritis, and no belly pain or back pain. Imaging not warranted. We will wait for lab studies. I have independently reviewed the following tests: Labs: No leukocytosis, not anemic, left shift noted, no electrolyte abnormality, not , small amount of hematuria within a normal range of 0-2 per high-power field, urine not infected Differential Diagnosis Differential Diagnoses: The differential diagnosis associated with the presentation includes See [facility] Admission/Observation Consideration of admission/observation: Escalation of care including admission/observation considered Not applicable Lab Data [facility] Lab Attestation statement: I reviewed the patient's lab results. 06/01/25 20:38 06/01/25 20:38 Labs: Lab Results 06/01/25 06/01/25 Range/Units 20:38 23:26 WBC 3.3 L (4.8-10.8) X10*3/uL RBC 4.23 (4.20-5.50) X10*6/uL Hgb 11.3 L (12.0-16.0) g/dl Hct 34.7 L (37.0-47.0) % MCV 82.0 (80.0-98.0) fL MCH 26.7 L (27.0-33.0) pg MCHC 32.6 (31.0-35.0) g/dl RDW 14.0 (11.0-16.0) % Plt Count 149 L (160-400) X10*3/uL MPV 11.3 (9.4-12.3) fL Immature Gran % (Auto) 0.3 (0.0-0.4) % Neut % (Auto) 73.9 H (45-73) % Lymph % (Auto) 12.9 L (20-40) % Chase % (Auto) 12.6 H (2-11) % Eos % (Auto) 0.0 (0-4) % Baso % (Auto) 0.3 (0-2) % Lymph # (Auto) 0.4 L (1.2-4.9) X10*3/uL Chase # (Auto) 0.4 (0.1-1.2) X10*3/uL Eos # (Auto) 0.0 (0.0-0.4) X10*3/uL Baso # (Auto) 0.0 (0.0-0.2) X10*3/uL Abs Immat Gran (auto) 0.01 (0.00-0.03) X10*3/uL Absolute Neuts (auto) 2.4 (2.0-8.3) x10*3/uL Absolute Nucleated RBC 0.000 (0.0-0.012) X10*3/uL Nucleated RBC % (auto) 0.0 (0.0-0.2) /100WBC Sodium 139 (135-145) mmol/L Potassium 3.6 (3.3-5.1) mmol/L Chloride 110 H (96-108) mmol/L Carbon Dioxide 21 L (22-29) mmol/L Anion Gap 12 (12-20) BUN 17 H (9-16) mg/dL Creatinine 0.82 (0.5-1.4) mg/dL Estim Creat Clear Calc 74.1 Estimated GFR > 60 Random Glucose 112 (60-115) mg/dL Calcium 8.7 (8.4-10.2) mg/dL Total Bilirubin 0.3 (0.0-1.0) mg/dL AST 18 (5-31) U/L ALT 17 (0-31) U/L Alkaline Phosphatase 72 (39-117) U/L Total Protein 7.8 (6.5-8.0) g/dL Albumin 4.9 (3.5-5.0) g/dL Urine Color Yellow Urine Appearance Clear Urine pH 7.0 (5.0-9.0) Ur Specific [place] <= 1.005 (1.005-1.025) Urine Protein Negative (Neg-Trace) mg/dL Urine Glucose (UA) Negative (Negative) mg/dL Urine Ketones Negative (Negative) mg/dL Urine Blood Small (1+) H (Negative) Urine Nitrite Negative (Negative) Ur Leukocyte Esterase Negative (Negative) Urine RBC 0-2 (0-2) /HPF Urine WBC 0-5 (0-5) /HPF Ur Squamous Epith Cells 0-2 (0-2) /HPF Urine Bacteria None Seen (None Seen) Hyaline Casts 0-2 (0-2) /LPF Urine Test NEGATIVE (NEGATIVE) Discharge Plan Discharge Clinical Impression: COVID-19 Patient Disposition: Home, Self-Care Instructions: How to Recover from COVID-19 at Home (ED) Additional Instructions: Your urine was negative for infection, you are not passing any significant blood, it is technically within a normal range. You may be beginning your menstrual cycle, if you notice blood in your urine earlier today. Also, your urine could have been concentrated, if you did not consume enough water. See home care instructions in regard to COVID. Follow up with your primary care as needed. Prescriptions: No Action cetirizine [Zyrtec] 10 mg tablet 10 mg PO DAILY PRN prednisone 10 mg tablet 15 mg PO DAILY hydroxychloroquine [Plaquenil] 200 mg tablet 200 mg PO DAILY Stand Alone Forms: Work/School Release Interventions: ED Discharge Assessment Last Done: 06/02/25 00:26 Discharge Date/Time: 06/02/25 00:27 Print Language: Frisian
--- OUTSIDE RECORDS SUMMARY | 2025-06-02 00:07 | XMS_ITS | Encounter Summary ---
Author Organization [employer] Address [address] [facility] [place] [address] Care Team Providers Care Senior Ruby Developer Name Role Phone NicoleOksana NESHA Primary Care Provider [phone] Reason for Visit * Reason Onset Date Comments Ellis Lopes 03/06/2025 Encounter Details Date Type Department Care Team (Late st Contact Info) Description 03/06/2025 Telephone [facility] MEDICINE [address] [place], [place] [phone] Bradley Rosas MD [address] [place], [place] [phone] Ellis Lopes Social History Tobacco Use Types Packs/Day Years Used Date Smoking Tobacco: Never Passive Smoke Exposure: Never Smokeless Tobacco: Never Alcohol Use Standard Drinks/Week Comments Defer 0 (1 standard drink = 0.6 oz pur e alcohol) Comments Unknown Sex and Gender Information Value Date Recorded Sex Assigned at Female 04/28/2022 10:15 AM EDT Legal Sex Female 10:15 AM EDT Gender Identity Female 02/11/2024 8:14 AM EDT Sexual Orientation Don't know 02/11/2024 8: 13 AM EDT documented as of this encounter Miscellaneous Notes * Telephone Encounter - Cinthya Gutierrez - 03/07/2025 9:32 AM EDT Pt was scheduled for 04-06-2025 with ESPERANZA Gandhi * Telephone Encounter - Ronnie Sahu - 03/06/2025 1:09 PM EDT TC from caller requesting NEW PATIENT visit . Insurance name: LTAC, [facility] Location: [facility] Demographic information updated documented in this encounter Plan of Treatment Upcoming Encounters Date Type Department Care Team (Late st Contact Info) Description 06/15/2025 8:00 AM EST Office Visit [facility] ADULT DENTAL [address] [place], [place] [phone] Michael Adams DDS [address] [place], [place] [phone] documented as of this encounter Visit Diagnoses Not on filedocumented in this encounter Care Teams Senior Ruby Developer Relationship Specialty Start Date End Date Oksana Nicole CNP [address] [place] [phone] PCP - General Family Medicine 05/05/25 documented as of this encounter
--- OUTSIDE RECORDS SUMMARY | 2025-06-02 00:07 | XMS_ITS | Encounter Summary ---
Author Organization [facility] Address [address] [place] [phone] Phone Care Team Providers Care Delivery Lead Name Role Phone Suleiman Penaloza MD Unavailable [email or web address] Pcp, Unknown Primary Care Provider Unavailabl e Pcp, Unknown Primary Care Provider Unavailabl e Encounter Details Date Type Department Care Team (Late st Contact Info) Description 02/06/[address] [facility] Medical Infusion Center [address] [place] [phone] Ailin Irwin, RN [address] [place] [address] [email or web address] Social History Tobacco Use Types Packs/Day Years Used Date Smoking Tobacco: Never Smokeless Tobacco: Never Alcohol Use Standard Drinks/Week Comments No 0 (1 standard drink = 0.6 oz pur e alcohol) Education Answer Date Recorded Are you interested in more education? Not on landon e 10/24/2022 Are you concerned about learning? Not on file 10/24/2022 No 10/24/2022 No 10/24/2022 Digital Access Answer Date Recorded No 11/24/2022 No 11/24/2022 Reliable internet access at home? Not on file 11/24/2022 Device with a working camera? Not on file Comments No Sex and Gender Information Value Date Recorded Sex Assigned at Not on file Legal Sex Female 9:08 PM EDT Gender Identity Not on file Sexual Orientation Not on file documented as of this encounter Plan of Treatment Upcoming Encounters Date Type Department Care Team (Late st Contact Info) Description 06/15/2025 11:00 AM EST Infusion [facility]fusion [facility] [address] [place] [phone] Sabine Cruz MD, MPH [address] [place] [phone] 07/13/2025 11:00 AM EST Infusion [facility] Infusion Center [address] [place] [phone] Sabine Cruz MD, MPH [address] [place] [phone] 08/10/2025 11:00 AM EST Infusion [facility] Infusion [address] [address] Sabine Cruz MD, MPH [address] [place] [phone] 08/24/2025 1:10 PM EST Office Visit [facility] Rheumatology [address] [place] [phone] Sabine Cruz MD, MPH [address] [place] [phone] 09/07/2025 11:00 AM EDT Infusion [facility] Infusion [address] [address] Sabine Cruz MD, MPH [address] [place] [phone] 10/05/2025 11:00 AM EDT Infusion [facility] Infusion [address] [address] Sabine Cruz MD, MPH [address] [place] [phone] 11/02/2025 11:00 AM EDT Infusion [facility] Medical Infusion Center [address] [place] [phone] Sabine Cruz MD, MPH [address] [place] [phone] 11/30/2025 11:00 AM EDT Infusion [facility] Medical Infusion [facility] [address] [place] [phone] Sabine Cruz MD, MPH [address] [place] [phone] 12/28/2025 11:00 AM EDT Infusion [facility] Medical Infusion [facility] [address] [place] [phone] Sabine Cruz MD, MPH [address] [place] [phone] 01/25/2026 11:00 AM EDT Infusion [facility] Infusion [facility] [address] [place] [phone] Sabine Cruz MD, MPH [address] [place] [phone] 02/22/2026 11:00 AM EDT Infusion [facility] Infusion [facility] [address] [place] [phone] Sabine Cruz MD, MPH [address] [place] [phone] 03/22/2026 11:00 AM EDT Infusion [facility] Infusion [facility] [address] [place] [address] Sabine Cruz MD, MPH [address] [place] [phone] [email or web address] 04/19/[email or web address] 11:00 AM EDT Infusion [facility] Infusion Center [address] [place] [address] Sabine Cruz MD, MPH [address] [place] [phone] [email or web address] documented as of this encounter Visit Diagnoses Not on filedocumented in this encounter Care Teams Delivery Lead Relationship Specialty Start Date End Date Pcp, Unknown PCP - General 02/28/22 08/13/23 Pcp, Unknown PCP - General 08/14/23 Suleiman Penaloza MD [email or web address] LMR Provider 04/16/17 documented as of this encounter Additional Source Comments The information contained in this document represents components of the legal health record. It is not the complete legal health record.[facility]
--- OUTSIDE RECORDS SUMMARY | 2025-06-02 00:07 | XMS_ITS | Encounter Summary ---
Author Organization [employer] Address [address] [place] [address] Care Team Providers Care Travel Ot Name Role Phone Oksana Nicole CNP Primary Care Provider [phone] Encounter Details Date Type Department Care Team (Late Contact Info) Description 07/21/2024 Telephone [facility] ADULT DENTAL [address] [place] [address] Michael Adams DDS [address] [place], [place] [phone] Social History Tobacco Use Types Packs/Day Years [...] encounter Miscellaneous Notes * Telephone Encounter - Bria Benson - 07/21/2024 1:31 PM EST Good after noon I'm only writing this message because thy ask us too .patient called to ask for antibiotic her [facility] documented in this encounter Plan of Treatment Upcoming Encounters Date Type Department Care Team (Late Contact Info) Description 06/15/2025 8:00 AM EST Office Visit [facility] ADULT DENTAL [address] [place] [address] Michael Adams, ELLE [address] [place] [address] documented as of this encounter Visit Diagnoses Not on filedocumented in this encounter Care Teams Travel Ot Relationship Specialty Start Date End Date Oksana Nicole CNP [address] [place] [phone] PCP - General Family Medicine 05/05/25 documented as of this encounter
--- OUTSIDE RECORDS SUMMARY | 2025-06-02 00:07 | XMS_ITS | Clinical Summary ---
Author Organization [employer] Address [address] [facility] [address] [place] [address] Care Team Providers Care Hematology Nurse Name Role Phone Oksana Nicole EXECUTIVE MANAGER Primary Care Provider [phone] Allergies Active Allergy Reactions Criticality Noted Date Comments Metronidazole Nausea And Vomiting,Other 019 Medications chlorhexidine (Peridex) 0.12 % solution Swish 15 mL morning and night for 1 minute. Spit, do not swallow. Do not eat or drink for 30 minutes following use. 473 mL 024 Active Additional Information Patient not taking.Reported on 05/29/2025 belimumab (Benlysta) 120 mg reconstituted solution IV injection Infuse into a venous catheter. Active Glycerin-Hyprome llose-PEG 400 (Artificial Tears) 0.2-0.2-1 % solution Administer 1 drop into affected eye(s) if needed in the morning, at noon, and at bedtime. 024 Active hydroxychloroqui ne (Plaquenil) 200 MG tablet Take 200 mg by mouth in the morning. 022 Active Levonorgestrel 19.5 MG intrauterine device 1 each by Intrauterine route. 025 Active Diclofenac Sodium (Voltaren) 1 % gelIndications:P olyarthralgia Apply to affected areas twice daily 150 g 11 025 Active ibuprofen 600 MG tabletIndication s:Polyarthralgia Take 1 tablet (600 mg) by mouth 3 times daily. 90 tablet 025 2024 Active Additional Information Patient not taking.Reported on 05/29/2025 acetaminophen (Tylenol 8 Hour) 650 MG ER tabletIndication s:Open fracture of tooth, initial encounter,Pain, dental Take 1 tablet (650 mg) by mouth every 8 (eight) hours if needed for mild pain. Do not crush, chew, or split. 15 tablet Active amoxicillin (Amoxil) 500 MG capsuleIndicatio ns:Open fracture of tooth, initial encounter,Pain, dental Take 1 capsule (500 mg) by mouth every 8 (eight) hours for 7 days. 21 capsule 025 2024 Active ibuprofen 600 MG tabletIndication s:Open fracture of tooth, initial encounter,Pain, dental Take 1 tablet (600 mg) by mouth every 6 (six) hours if needed for mild pain for up to 20 doses. 20 tablet Active ibuprofen 600 MG tablet Take 1 tablet (600 mg) by mouth every 6 (six) hours if needed for mild pain for up to 20 doses. 20 tablet 025 2024 Discontinued(R eorder (will not trigger notification to Pharmacy)) carbamide peroxide (Debrox) 6.5 % otic solutionIndicati ons:Impacted cerumen of right ear Administer 3-5 drops into the right ear 2 times daily for 4 days. 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 Daily sun protection all year round, particularly during spring and summer months. Make sure to follow with deputy commonwealth's attorney at least every 12 months. Last Assessment & Plan: Reminded to get monitoring labs prior to each every 28 days Benlysta infusions. Disorder of eye 08/14/2021 Overview (04/05/2025): Last Assessment & Plan: Diligent eye hygiene. She reports that in the past ocular ointment was helpful prescribed by Dr. Penaloza. Eye irritation 08/14/2021 Encounter for monitoring of belimumab therapy Long-term use of Plaquenil 08/14/2021 History of renal calculi 09/27/2020 Iron deficiency anemia 09/27/2020 Proteinuria 09/27/2020 Renal stone 09/27/2020 Stage 2 chronic kidney disease 09/27/2020 Abnormal uterine bleeding 04/28/2019 Overview (04/05/2025): Midcycle, light 1-2 days x 2 months Last Assessment & Plan: Best options with SLE include LNG IUd or OCP/DEpoP, implant to avoid EE Does not want to try LNG IUD; sent Rx for P only OCPs Menorrhagia 03/15/2019 Overview (04/05/2025): Last Assessment & Plan: Unclear etiology. Possibly related to glucocorticoids. Check test today. Refer to gynecology for further evaluation. Osteopenia 03/15/2019 Overview (04/05/2025): DEXA 09/2021 osvaldo T-score -2 right fem neck Other osteoporosis without current pathological fracture 03/15/2019 Overview (04/05/2025): Last Assessment & Plan: Small body habitus young woman on chronic prednisone and Benlysta for systemic lupus not surprisingly has osteoporosis. As she is still premenstrual there is no pharmacologic intervention by will maximize her vitamin D level and try to lower her prednisone. She is instructed to get as much weightbearing activity as possible. She will continue on vitamin D supplementation as we have discussed. I will monitor her 25-hydroxy vitamin D level. Results for orders placed or performed during the hospital encounter of 02/04/19 (from the past 82220 hour(s)) DXA Monitoring Narrative This is a 28-year-old patient on corticosteroid therapy. Evaluation of the lumbar spine and both hips is obtained and appears appropriate. The lumbar spine from L1 through L4 discloses a total bone mineral density of 0.772 g/cm2 with a T-score of -2.5. This is in the osteoporosis range. The right hip has a total bone mineral density of 0.784 g/cm2 with a T-score of -1.3 this is in the osteopenia range. The left hip has a total bone mineral density of 0.771 g/cm2 for a T-score of - 1.4. This is in the osteopenia range. Impression Osteoporosis evident in the lumbar spine with osteopenia in both hips. S/S: Bone density screening, corticosteroid usage, osteoporosis POS - [id number] Last Assessment & Plan: continue ca2+ and vitamin d supplementation - monitoring labs Systemic lupus erythematosus ([facility]) 8 Overview (04/05/2025): hydroxychloroquine 2021 to current belimumab 03/2020 to current previous azathioprine trial not effective ? mycophenolate trial Persistently pos dsDNA; strongly pos SSA / SSB with ocular but no oral sicca; leukopenia; chilblain lupus Assessment & Plan (05/05/2025 3:53 PM EST): Stable She will continue with Belimumab injections and f/u with rheum Knee pain 07/30/2017 Arthritis 06/11/2017 Overview (04/05/2025): Last Assessment & Plan: [place] [employer] or intermediate [employer] principal current use of systemic steroids 06/11 Overview (04/05/2025): Last Assessment & Plan: Discussed long-range side effects of low-dose glucocorticoids which are necessary for treatment of her lupus. 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 We discussed the temporary nature of that. We discussed the need for weightbearing activity, continuance of vitamin D, fall and fracture prevention and after full discussion of risks and benefits she will decrease prednisone to 12.5 mg daily for 4 weeks and then if there is no recurrence of inflammatory arthropathy then she will decrease again to 10 mg daily. I reviewed her lab work which showed a rise in her C3 component which is reassuring. All else is stable. No evidence of glomerulonephritis. We will continue Benlysta every 28 days. Infusion on 06/05/2020 Component Date Value Ref Range Status ? WBC 06/05/2020 4.22 4.00 - 11.00 K/uL Final Note Reference Range updates to all CBC and Differential results. ? RBC 06/05/2020 4.84 3.72 - 5.30 M/uL Final ? HGB 06/05/2020 12.1 10.6 - 15.5 g/dL Final Note updated Reference Ranges for all CBC and Differential results. ? HCT 06/05/2020 39.0 32.0 - 45.0 % Final ? PLT 06/05/2020 238 140 - 430 K/uL Final ? MCV 06/05/2020 80.6 78.0 - 97.0 fL Final ? MCH 06/05/2020 25.0 25.0 - 33.0 pg Final ? MCHC 06/05/2020 31.0* 32.0 - 36.0 g/dL Final ? RDW 06/05/2020 14.5 11.0 - 16.0 % Final ? MPV 06/05/2020 10.3 8.4 - 12.8 fl Final ? NRBC 06/05/2020 0.00 0 /100 WBCs Final ? ABSOLUTE NRBC 06/05/2020 0.00 0 K/uL Final ? DIFF METHOD 06/05/2020 Auto Final ? NEUTS 06/05/2020 76.5* 43.0 - 75.0 % Final ? LYMPHS 06/05/2020 12.6* 18.2 - 47.4 % Final ? MONOS 06/05/2020 8.5 4.00 - 11.00 % Final ? EOS 06/05/2020 0.7 0.0 - 8.0 % Final ? BASOS 06/05/2020 0.5 0.0 - 2.0 % Final ? Granulocytes, immature (%) 06/05/2020 1.2* 0.0 - 0.9 % Final ? ABSOLUTE NEUTS 06/05/2020 3.23 1.80 - 7.70 K/uL Final ? ABSOLUTE LYMPHS 06/05/2020 0.53* 1.00 - 3.10 K/uL Final ? ABSOLUTE MONOS 06/05/2020 0.36 0.20 - 0.80 K/uL Final ? ABSOLUTE EOS 06/05/2020 0.03 0.00 - 0.80 K/uL Final ? ABSOLUTE BASOS 06/05/2020 0.02 0.00 - 0.09 K/uL Final ? Granulocytes, immature 06/05/2020 0.05 0.00 - 0.05 K/uL Final ? SODIUM 06/05/2020 142 133 - 146 mmol/L Final ? POTASSIUM 06/05/2020 3.1* 3.3 - 5.1 mmol/L Final ? CHLORIDE 06/05/2020 106 96 - 108 mmol/L Final ? CO2 06/05/2020 26 21 - 35 mmol/L Final ? BUN 06/05/2020 17 6 - 19 mg/dL Final ? CREATININE 06/05/2020 1.10 0.5 - 1.5 mg/dL Final ? GLUCOSE 06/05/2020 84 70 - 99 mg/dL Final ? ALBUMIN 06/05/2020 3.8* 3.9 - 4.8 g/dL Final ? TOTAL PROTEIN 06/05/2020 6.3* 6.5 - 8.0 g/dL Final ? CALCIUM 06/05/2020 8.8 8.4 - 10.3 mg/dL Final ? ALKALINE PHOSPHATASE 06/05/2020 74 39 - 117 U/L Final ? TOTAL BILIRUBIN 06/05/2020 0.2 0.0 - 1.2 mg/dL Final ? AST 06/05/2020 12 0 - 37 U/L Final ? ALT 06/05/2020 14 0 - 40 U/L Final ? GLOBULIN 06/05/2020 2.5 1 - 4.8 g/dL Final ? EGFR 06/05/2020 66 >59 mL/min/1.73m2 Final Estimated glomerular filtration rate calculated using the CKD-EPI equation. ? ANION GAP 06/05/2020 13 10 - 20 mmol/L Final ? C3 06/05/2020 44* 81 - 157 mg/dl Final ? C4 06/05/2020 13 12 - 39 mg/dL Final ? ANTI DSDNA ANTIBODY 06/05/2020 POSITIVE AT 1:160 Final Comment: Megha Powell M.D., Director Clinical Immunology Laboratory [id number] Normal: Negative at 1:10 Anti-elim ira DNA Antibodies detected on Crithidia Luciliae Substrate The indirect immunofluorescence test on Crithidia luciliae substrate shows that antibodies in the serum of this patient react with the kinetoplast of Crithidia luciliae, a monoflagellate protozoan organism. The kin etoplast contains small ringlets of double-stranded DNA. It does not contain single-stranded DNA or, except in very unusual circumstances, free histones. This staining pattern therefore, most likely, reflects the presence of antibodies to double-stranded DNA. Antibodies to double-stranded DNA are found in patients with SLE and in about 20 per cent of patients with mixed connective tissue disease (MCTD). This antibody is rarely found in other rheumatic diseases or in drug-induced SLE. Cjoq-aqlnpe-fjbbgwmm DNA antibodies are usually detected in SLE patients with active disease, but not in those with spontaneous or induced remissions. Sequential testing of serum for the presence and titer of this antibody provides a cost-effective approach to following disease activity in many patients with SLE. 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 06/11 Encounters Date Type Department Care Team Description 05/29/2025 11:30 AM EST Office Visit [facility] [address] [place] [address] Michael Adams DDS Open fracture of tooth, initial encounter (Primary Dx); Pain, dental 05/05/2025 2:45 PM EST Office Visit [facility] [address] [place], [place] [phone] Oksana Nicole CNP Encounter for physical examination (Primary Dx); Polyarthralgia; Impacted cerumen of right ear; Systemic lupus erythematosus, unspecified SLE type, unspecified organ involvement status (CMS/HCC) (HCC); Medial epicondylitis of right elbow 05/05/2025 Travel 04/27/2025 Patient Outreach [facility] [address] [place], [place] [phone] Bradley Rosas MD Pre-visit Planning (Pre visit planning LVM ) 04/11/2025 Patient Outreach [facility] [address] [place] [id number] Bradley Rosas MD Pre-visit Planning (Pre visit planning LVM ) 04/07/2025 Travel 04/06/2025 Travel 04/05/2025 Telephone [facility] [address] [place] [address] Mignon Marie MA chart prep 03/30/2025 Patient Outreach [facility] [address] [place] [address] Bradley Rosas MD Pre-visit Planning (Pre visit planning LVM ) 03/06/2025 Telephone [facility] [address] [place] [phone] Bradley Rosas MD [place] from Last 3 Months Family History Medical History Relation Name Comments Hyperlipidemia Mother HTN Mother's Brother Thyroid disease Mother's Sister Relation Name Status Comments Mother Mother's Brother Mother's Sister Social History Tobacco Use Types Packs/Day Years Used Date Smoking Tobacco: Never Passive Smoke Exposure: Never Smokeless Tobacco: Never Tobacco Cessation:Counseling Given: No Alcohol Use Standard Drinks/Week Comments Defer 0 [...] the past 12 months, has t he drchrono, gas, oil or water [employer] threatened to shut off services in your [...] Don't know 02/11/2024 8: 13 AM EDT Last Filed Vital Signs Vital Sign Reading Time Taken Comments Blood Pressure 116/66 05/29/2025 11:39 AM EST Pulse 60 05/05/2025 2:46 PM EST Temperature 36.6 C (97.8 F) 05/05/2025 2:46 PM EST Respiratory Rate 16 05/05/2025 2:46 PM EST Oxygen Saturation - - Inhaled Oxygen Concentration - - Weight 50.6 kg (111 lb 9.6 oz) 05/05/2025 2:46 P M EST Height 162.6 cm (5' 4 ) 05/05/2025 2:46 PM EST Body Mass Index 19.16 05/05/2025 2:46 PM EST Plan of Treatment Upcoming Encounters Date Type Department Care Team (Late st Contact Info) Description 06/15/2025 8:00 AM EST Office Visit [facility] [address] [place] [address] Michael Adams DDS [address] [place] [address] Health Maintenance Due Date Last Done Comments HIV Screening 1988 Family Planning (PISQ) 2003 HPV Vaccines (1 - 3-dose series) 2003 Hepatitis C Screening 2006 DTaP/Tdap/Td Vaccines (1 - Tdap) 2007 Hepatitis B Vaccines (1 of 3 - 19+ 3-dose series) 2007 09/15/2024 Pap Smear 2009 Dental Prophylaxis 11/05/2011 05/06/2011 Dental Oral Exam 05/31/2016 11/29/2015, 11/29/2015 Cervical Cancer Screening 2018 HPV/Cotest 2018 Dental X-Ray: Bitewings 02/11/2025 02/11/20 24, 11/29/2015 COVID-19 Vaccine (1 - 2024-2 6 season) 2025 Influenza Vaccine (#1) 2025 Alcohol/Substance Use Screening 05/05/2026 05/05/2025 Depression Screening 05/05/2026 05/05/2025, 05/05/2025 Disability Screening 05/05/2026 05/05/2025 SDOH Screening 05/05/2026 05/05/2025 Tobacco Screening 05/29/2026 05/29/2025 Dental X-Ray: Full Mouth 05/14/2027 024, 02/18/2024, 11/29/2015 Zoster Vaccines (1 of 2) 2038 RSV Patients and Patients Aged 60 years or older (1 - 1-dose 75+ series) 2063 HIB Vaccines Aged Out No longer eligi ble based on patient's age to complete this topic Hepatitis A Vaccines Aged Out No long er eligible based on patient's age to complete this topic IPV Vaccines Aged Out No longer eligi ble based on patient's age to complete this topic Meningococcal B Vaccine Aged Out No l onger eligible based on patient's age to complete this topic Meningococcal Vaccine Aged Out No edwardo arsen eligible based on patient's age to complete this topic Pneumococcal Vaccine: Pediatrics (0 to 5 Years) and At-Risk Patients (6 to 49) Years Aged Out No longer eligible b ased on patient's age to complete this topic RSV under 20 months Aged Out No longe r eligible based on patient's age to complete this topic Rotavirus Vaccines Aged Out No longer eligible based on patient's age to complete this topic Procedures Procedure Name Priority Date/Time Associated Diagnosis Comments CASE PRESENTATION, DETAILED AND EXTENSIVE TREATMENT PLANNING Routine 05/29/2025 11:30 AM EST 30 EXTRACTION, ERUPTED TOOTH OR EXPOSED ROOT (ELEVATION/FORCEPS REMOVAL) Routine 05/29/2025 11:30 AM EST INTRAORAL - PERIAPICAL FIRST RADIOGRAPHIC IMAGE Routine 05/29/2025 11:30 AM EST LIMITED ORAL EVALUATION - PROBLEM FOCUSED Routine 05/29/2025 11:30 AM EST PANORAMIC RADIOGRAPHIC IMAGE Routine 05/13/2024 11:30 AM EST BITEWING - SINGLE RADIOGRAPHIC IMAGE Routine 02/11/2024 1:00 PM EDT PERIODIC ORAL EVALUATION - ESTABLISHED PATIENT Routine 11/29/2015 12:00 AM EDT PROPHYLAXIS - ADULT Routine 05/06/2011 1 2:00 AM EST from Last 3 Months or Most Recently Relevant to Health Maintenance Insurance [facility] < 65 D[facility]AL [facility] Care Teams Hematology Nurse Relationship Specialty Start Date End Date Oksana Nicole CNP [address] [place] [address] PCP - General Family Medicine 05/05/25
--- OUTSIDE RECORDS SUMMARY | 2025-06-02 00:07 | XMS_ITS | Clinical Summary ---
Author Organization [facility] Address [address] [address] Phone Care Team Providers Care Station Engineer Name Role Phone Suleiman Penaloza MD Unavailable [email or web address] Pcp, Unknown Primary Care Provider Unavailabl e Allergies Active Allergy Reactions Criticality Noted Date Comments Metronidazole Nausea and/or Vomiting 10/27/2018 Medications cetirizine (ZYRTEC) 10 MG tablet Take 10 mg by mouth daily. Active belimumab (BENLYSTA) 120 mg SolRIndications: systemic lupus erythematosus,fi rst loading dose on 03/30/2020 Inject 624 mg into the vein every 28 days. Indications: systemic lupus erythematosus, an autoimmune disease, first loading dose on 03/30/2020 Active dextran 70-hypromellose (GENTEAL TEARS MILD) 0.1-0.3 %Indications:Dry eye Place 1 drop into each eye 3 (three) times a day as needed. 30 mL 3 4 Active ibuprofen (ADVIL,MOTRIN) 600 MG tablet Take 600 mg by mouth every 6 (six) hours as needed. 5 Active propylene glycoL (SYSTANE BALANCE) 0.6 % DropIndications: Systemic lupus erythematosus, unspecified SLE type, unspecified organ involvement status,Sicca syndrome Place 1 drop into each eye 3 (three) times a day. As needed for dry eye 20 mL 1 5 Active Additional Information Patient not taking.Reported on 02/16/2025 cholecalciferol (VITAMIN D3) 5,000 unit capsuleIndicatio ns:Vitamin D deficiency Take 1 capsule (5,000 Units total) by mouth daily. 90 capsule 1 5 Active hydroxychloroqui ne (PLAQUENIL) 200 mg tabletIndication s:Systemic lupus erythematosus, unspecified SLE type, unspecified organ involvement status Take 1 tablet (200 mg total) by mouth every morning. 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 Lateral epicondylitis of right elbow 08/16/2024 Assessment & Plan (03/22/2025 7:22 PM EDT): Co-morbid hypermobility contributing to R > L elbow pain Assessment & Plan (08/16/2024 12:54 PM EST): Onset in the past 4 days; favor OT +/- local steroid injection > systemic steroids (requested by patient). Questionable component of co-morbid cubital tunnel syndrome given positional right 4th/5th finger numbness. Advised conservative mgmt with focus on keeping her elbow extended in sleep; she will contact me if sxs persist or progress in severity to the point that she requires dedicated tx. Trochanteric bursitis of both hips 02/12/2024 Assessment & Plan (02/12/2024 9:51 AM EDT): Patient amenable to dedicated PT; will proceed with local steroid injections if PT proves inadequate. Dry eye 08/14/2023 Assessment & Plan (08/14/2023 1:00 PM EST): Artificial tears; needs ophtho f/u as below. Baseline Sjogren's serologies Leg pain, anterior, right 08/14/2023 Assessment & Plan (08/14/2023 1:01 PM EST): Exam today unrevealing; interestingly pain is present at rest and there is no e/o isolated joint involvement. Patient amenable to dedicated sports medicine evaluation. Poor appetite 10/24/2022 Vitamin D deficiency 07/10/2022 Assessment & Plan (07/10/2022 1:50 PM EST): Will optimize bone health as much as possible in this premenopausal patient with osteopenia (h/o osteoporosis). Rib pain on left side 07/10/2022 Assessment & Plan (02/18/2023 5:31 PM EDT): Resolved w/o dedicated intervention Assessment & Plan (07/10/2022 1:50 PM EST): Plain film in context of underlying osteopenia Long-term use of Plaquenil 08/14/2021 Assessment & Plan (03/22/2025 7:24 PM EDT): VFT scheduled for 04/2025; patient will request documentation for my review. Current dose is appropriate at 3.9 mg/kg/day. Assessment & Plan (08/16/2024 11:55 AM EST): Current dose 3.6 mg/kg/day; updated labs ordered. Patient reminded again today re: need for annual VFT Assessment & Plan (08/14/2023 12:59 PM EST): Patient reminded re: need for VFT Assessment & Plan (02/18/2023 5:33 PM EDT): Next VFT planned for next year but not yet scheduled Assessment & Plan (08/18/2021 10:01 PM EST): Carefully take exactly as prescribed. Daily sun protection all year round, particularly during spring and summer months. Make sure to follow with cardiac technologist at least every 12 months. Eye irritation 08/14/2021 Assessment & Plan (08/18/2021 9:55 PM EST): Diligent eye hygiene. She reports that in the past ocular ointment was helpful prescribed by Dr. Penaloza. Encounter for monitoring of belimumab therapy Assessment & Plan (03/22/2025 7:23 PM EDT): No contraindication to continued belimumab Assessment & Plan (08/16/2024 12:51 PM EST): >>ASSESSMENT AND PLAN FOR LONG-TERM CURRENT USE OF HIGH RISK MEDICATION OTHER THAN ANTICOAGULANT WRITTEN ON 08/18/2021 10:02 PM BY PING DUMONT MD Reminded to get monitoring labs prior to each every 28 days Benlysta infusions. Assessment & Plan (08/16/2024 12:51 PM EST): >>ASSESSMENT AND PLAN FOR LONG-TERM CURRENT USE OF HIGH RISK MEDICATION OTHER THAN ANTICOAGULANT WRITTEN ON 10/24/2022 1:07 PM BY SARA GAY MD, MPH No symptomatic AEs to belimumab; routine drug monitoring labs today. Baseline TPMT prior to possible azathioprine re-trial (patient-reported h/o inadequate efficacy). Assessment & Plan (08/16/2024 12:51 PM EST): >>ASSESSMENT AND PLAN FOR LONG-TERM CURRENT USE OF HIGH RISK MEDICATION OTHER THAN ANTICOAGULANT WRITTEN ON 08/14/2023 12:59 PM BY SARA GAY MD, MPH No symptomatic AEs with belimumab Assessment & Plan (08/16/2024 12:51 PM EST): >>ASSESSMENT AND PLAN FOR LONG-TERM CURRENT USE OF HIGH RISK MEDICATION OTHER THAN ANTICOAGULANT WRITTEN ON 02/12/2024 9:52 AM BY SARA GAY MD, MPH No symptomatic AEs of continued belimumab Abnormal uterine bleeding 04/28/2019 Overview (04/28/2019): Midcycle, light 1-2 days x 2 months Assessment & Plan (04/28/2019 11:41 AM EDT): Best options with SLE include LNG IUd or OCP/DEpoP, implant to avoid EE Does not want to try LNG IUD; sent Rx for P only OCPs Osteopenia 03/15/2019 Overview (02/18/2023): DEXA 09/2021 osvaldo T-score -2 right fem neck Assessment & Plan (02/18/2023 5:32 PM EDT): Now off prednisone; bisphosphonate contraindicated in this premenopausal woman Assessment & Plan (03/03/2022 10:42 PM EDT): Hx of osteopenia-last DEXA 09/2021 Imperative to try to reduce /discontinue prednisone Continue Calcium and Vit D Check Vit D today Assessment & Plan (12/27/2021 11:52 AM EDT): continue ca2+ and vitamin d supplementation - monitoring labs Assessment & Plan (10/23/2020 1:21 PM EDT): Restart vitamin D3 at 2000 units daily. I had a discussion today concerning the importance of vitamin D regarding fatigue, mood stabilization and bone mass. More than 50% of this 30-minute visit was spent in [id number] conversation. Assessment & Plan (08/28/2020 2:47 PM EST): Small body habitus young woman on chronic [...] hospital encounter of 02/04/19 (from the past 36195 hour(s)) DXA Monitoring Narrative This is a [...] screening, corticosteroid usage, osteoporosis POS - [id number] Assessment & Plan (03/15/2019 3:57 PM EDT): I reviewed the bone density showing osteoporosis. She is at high risk for fracture because of her premenopausal status she is not a candidate for bisphosphonate therapy. She will continue on calcium and vitamin D. Will be measuring a 25 hydroxy vitamin D level. We discussed fall and fracture prevention strategies as well as the strategy to slowly decrease and hopefully eliminate glucocorticoid dependence. Results for orders placed or performed during the hospital encounter of 02/04/19 (from the past 57699 hour(s)) DXA Monitoring Narrative This is a [...] screening, corticosteroid usage, osteoporosis POS - [id number] Menorrhagia 03/15/2019 Assessment & Plan (03/15/2019 4:01 PM EDT): Unclear etiology. Possibly related to glucocorticoids. Check test today. Refer to gynecology for further evaluation. Systemic lupus erythematosus 02/16/2018 Overview (08/16/2024): hydroxychloroquine 2021 to current belimumab 03/2020 to current previous azathioprine trial not effective ? mycophenolate trial Persistently pos dsDNA; strongly pos SSA / SSB with ocular but no oral sicca; leukopenia; chilblain lupus Assessment & Plan (03/22/2025 7:25 PM EDT): Low disease activity on continued belimumab + hydroxychloroquine Assessment & Plan (08/16/2024 12:49 PM EST): Disease remains overall well-controlled on longstanding hydroxychloroquine + belimumab; updated disease monitoring labs ordered. Can increase hydroxychloroquine dose slightly to be closer to 5 mg/kg/day if updated labs are c/w active disease. Assessment & Plan (02/12/2024 9:53 AM EDT): Disease well-controlled on longstanding belimumab plus hydroxychloroquine; no current indication for addition of more aggressive immunosuppressive therapy. 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 Routine disease monitoring labs today. Assessment & Plan (08/14/2023 12:58 PM EST): Overall low disease activity on longstanding hydroxychloroquine plus belimumab; recurrence of mild chilblain lupus noted but not clearly indication for change in immunosuppressive regimen. Will rx short course of prednisone only if there is progressive severity of skin involvement. Updated disease monitoring labs today. Assessment & Plan (02/18/2023 5:30 PM EDT): Overall low disease activity by hx and exam today on current regimen of correctly dosed hydroxychloroquine (4.3 mg/kg/day) plus belimumab; will obtain updated disease monitoring labs. 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 She will continue sun avoidance / protection. Assessment & Plan (10/24/2022 1:04 PM EDT): Active SLE remains characterized by skin involvement (lupus chilblains), neutropenia, thrombocytopenia, and hypocomplementemia. D/w patient concern that eye sxs of pain and burning are unrelated to hydroxychloroquine, that interruption in hydroxychloroquine therapy has driven recurrence of vasculitic lesions of her fingers, and that more aggressive control of SLE may be required, lorenzo if she is unable to tolerate hydroxychloroquine. Correct wt based dose of hydroxychloroquine is 200 mg daily (<5.0 mg/kg/d). Recommend resuming hydroxychloroquine at 1/2 dose than then increasing back to full dose several wks prior to upcoming ophtho evaluation to permit ophtho input. Of note she declined trial of low-dose nifedipine due to concern for hypotension. Written information on azathioprine and mycophenolate provided for patient review today; updated disease monitoring labs. Assessment & Plan (07/10/2022 1:49 PM EST): Updated disease monitoring labs prior to possible decrease from current prednisone dose of 5 mg daily; no change to hydroxychloroquine or belimumab. Persistence of lupus chilblains noted; trial low dose nifedipine starting at 15 mg daily and will increase to 30 mg daily if BP tolerates. Discussed importance of staying warm and dry. Assessment & Plan (03/03/2022 10:35 PM EDT): SLE symptoms currently well controlled after going on higher dose prednisone. We will attempt to taper that off slowly - continue benlysta monthly infusions - continue hydroxychloroquine 200mg daily - prednisone taper dose to 5 mg alternating with 2.5 mg daily x 4 weeks then continue 2.5 mg daily and hold -If unable to taper prednisone , would add additional DMARD, consider MTX or Imuran Assessment & Plan (12/27/2021 11:51 AM EDT): SLE symptoms currently well controlled after going on higher dose prednisone. We will attempt to taper that off slowly - continue benlysta monthly infusions - continue hydroxychloroquine 200mg daily - prednisone taper dose to 5 mg alternating with 2.5 mg daily x 4 weeks then continue 2.5 mg daily until f/u Assessment & Plan (08/18/2021 9:54 PM EST): Carefully continue prednisone 15 mg daily until Thursday-08/19/2021 and call regarding response. She understands that it may take her longer than a month to clear her rash. Consider formal dermatology evaluation if not better. Remain on Plaquenil 200 mg twice daily and continue monthly Benlysta infusions. Keep well-hydrated, eat well-balanced nutritionally diet. Sleep hygiene. Gentle, regular exercise. Assessment & Plan (03/26/2021 3:25 PM EDT): Continue and refill 5 mg of prednisone twice daily and 1000 units of vitamin D3 per day to maintain an effective therapeutic level. Continue Benlysta infusions monthly. Refer to dermatology to assess and treat new hard nodules which look calcific in nature. Laboratory work was reviewed showing positive double-stranded DNA, depressed complements, and leukopenia which is actually stable for her. No current evidence of vasculopathy, [employer] involvement or nephritis. No change in medications. Infusion on 03/08/2021 Component Date Value Ref Range Status WBC 03/08/2021 2.30* 4.00 - 11.00 K/uL Final RBC 03/08/2021 4.39 3.72 - 5.30 M/uL Final HGB 03/08/2021 11.6 10.6 - 15.5 g/dL Final HCT 03/08/2021 35.9 32.0 - 45.0 % Final PLT 03/08/2021 151 140 - 430 K/uL Final MCV 03/08/2021 81.8 78.0 - 97.0 fL Final MCH 03/08/2021 26.4 25.0 - 33.0 pg Final MCHC 03/08/2021 32.3 32.0 - 36.0 g/dL Final RDW 03/08/2021 13.8 11.0 - 16.0 % Final MPV 03/08/2021 12.1 8.4 - 12.8 fl Final NRBC 03/08/2021 0.00 0 /100 WBCs Final ABSOLUTE NRBC 03/08/2021 0.00 0 K/uL Final DIFF METHOD 03/08/2021 Auto Final NEUTS 03/08/2021 70.4 43.0 - 75.0 % Final LYMPHS 03/08/2021 17.0* 18.2 - 47.4 % Final MONOS 03/08/2021 10.9 4.00 - 11.00 % Final EOS 03/08/2021 0.9 0.0 - 8.0 % Final BASOS 03/08/2021 0.4 0.0 - 2.0 % Final Granulocytes, immature (%) 03/08/2021 0.4 0.0 - 0.9 % Final ABSOLUTE NEUTS 03/08/2021 1.62* 1.80 - 7.70 K/uL Final ABSOLUTE LYMPHS 03/08/2021 0.39* 1.00 - 3.10 K/uL Final ABSOLUTE MONOS 03/08/2021 0.25 0.20 - 0.80 K/uL Final ABSOLUTE EOS 03/08/2021 0.02 0.00 - 0.80 K/uL Final ABSOLUTE BASOS 03/08/2021 0.01 0.00 - 0.09 K/uL Final Granulocytes, immature 03/08/2021 0.01 0.00 - 0.05 K/uL Final SODIUM 03/08/2021 141 133 - 146 mmol/L Final POTASSIUM 03/08/2021 3.5 3.3 - 5.1 mmol/L Final CHLORIDE 03/08/2021 109* 96 - 108 mmol/L Final CO2 03/08/2021 23 21 - 35 mmol/L Final BUN 03/08/2021 11 6 - 19 mg/dL Final CREATININE 03/08/2021 0.90 0.5 - 1.5 mg/dL Final GLUCOSE 03/08/2021 84 70 - 99 mg/dL Final ALBUMIN 03/08/2021 4.2 3.9 - 4.8 g/dL Final TOTAL PROTEIN 03/08/2021 7.6 6.5 - 8.0 g/dL Final CALCIUM 03/08/2021 9.0 8.4 - 10.3 mg/dL Final ALKALINE PHOSPHATASE 03/08/2021 80 39 - 117 U/L Final TOTAL BILIRUBIN 03/08/2021 0.3 0.0 - 1.2 mg/dL Final AST 03/08/2021 17 0 - 37 U/L Final ALT 03/08/2021 15 0 - 40 U/L Final GLOBULIN 03/08/2021 3.4 1 - 4.8 g/dL Final EGFR 03/08/2021 85 >59 mL/min/1.73m2 Final Estimated glomerular filtration rate calculated using the CKD-EPI equation. ANION GAP 03/08/2021 13 10 - 20 mmol/L Final C3 03/08/2021 62* 81 - 157 mg/dl Final C4 03/08/2021 23 12 - 39 mg/dL Final ANTI DSDNA ANTIBODY 03/08/2021 POSITIVE AT 1:640 Final Comment: Performing Physician, Jb Thornton M.D., [id number] Normal: Negative at 1:10 Anti-chickaloon DNA Antibodies detected on Crithidia Luciliae Substrate [...] other rheumatic diseases or in drug-induced SLE. Ykpu-gwmwul-btmngpky DNA antibodies are usually detected in SLE patients with active disease, but not in those with sponta neous or induced remissions. Sequential testing of serum for the presence and titer of this antibody provides a cost-effective approach to following disease activity in many patients with SLE. Assessment & Plan (01/15/2021 2:57 PM EDT): Systemic lupus erythematosus in a patient with polyarthritis, subacute cutaneous lupus, polyserositis, who is doing well. Continue Benlysta, prednisone, calcium, and vitamin D. Lower prednisone to 7.5 mg weekly. Discussed in detail today for more than 50% of this 30-minute visit risks and benefits of COVID-19 vaccination. I suggest now that she is 2-1/2 weeks between cycles of Benlysta she should start her vaccination cycle now, skipping her next planned dose of Benlysta at the beginning of January and then resuming in February. Laboratory work will be checked at that time and her November lab work was checked with her today. Hospital Outpatient Visit on 11/27/2020 Component Date Value Ref Range Status 25 OH VIT D (TOTAL) 11/27/2020 45 30 - 60 ng/mL Final WBC 11/27/2020 3.18* 4.00 - 11.00 K/uL Final RBC 11/27/2020 4.67 3.72 - 5.30 M/uL Final HGB 11/27/2020 12.5 10.6 - 15.5 g/dL Final HCT 11/27/2020 38.5 32.0 - 45.0 % Final PLT 11/27/2020 240 140 - 430 K/uL Final MCV 11/27/2020 82.4 78.0 - 97.0 fL Final MCH 11/27/2020 26.8 25.0 - 33.0 pg Final MCHC 11/27/2020 32.5 32.0 - 36.0 g/dL Final RDW 11/27/2020 13.2 11.0 - 16.0 % Final MPV 11/27/2020 11.3 8.4 - 12.8 fl Final NRBC 11/27/2020 0.00 0 /100 WBCs Final ABSOLUTE NRBC 11/27/2020 0.00 0 K/uL Final DIFF METHOD 11/27/2020 Auto Final NEUTS 11/27/2020 64.5 43.0 - 75.0 % Final LYMPHS 11/27/2020 17.9* 18.2 - 47.4 % Final MONOS 11/27/2020 15.4* 4.00 - 11.00 % Final EOS 11/27/2020 0.6 0.0 - 8.0 % Final BASOS 11/27/2020 0.3 0.0 - 2.0 % Final Granulocytes, immature (%) 11/27/2020 1.3* 0.0 - 0.9 % Final ABSOLUTE NEUTS 11/27/2020 2.05 1.80 - 7.70 K/uL Final ABSOLUTE LYMPHS 11/27/2020 0.57* 1.00 - 3.10 K/uL Final ABSOLUTE MONOS 11/27/2020 0.49 0.20 - 0.80 K/uL Final ABSOLUTE EOS 11/27/2020 0.02 0.00 - 0.80 K/uL Final ABSOLUTE BASOS 11/27/2020 0.01 0.00 - 0.09 K/uL Final Granulocytes, immature 11/27/2020 0.04 0.00 - 0.05 K/uL Final IRON 11/27/2020 63 30 - 160 ug/dL Final IRON BINDING CAPACITY 11/27/2020 245 228 - 428 ug/dL Final TRANSFERRIN SATURAT. 11/27/2020 26 15 - 50 % Final C REACTIVE PROTEIN 11/27/2020 5.1* 0.0 - 4.0 mg/L Final Hospital Outpatient Visit on 10/23/2020 Component Date Value Ref Range Status C REACTIVE PROTEIN 10/23/2020 <3.0 0.0 - 4.0 mg/L Final WBC 10/23/2020 2.18* 4.00 - 11.00 K/uL Final RBC 10/23/2020 4.53 3.72 - 5.30 M/uL Final HGB 10/23/2020 12.1 10.6 - 15.5 g/dL Final HCT 10/23/2020 37.6 32.0 - 45.0 % Final PLT 10/23/2020 192 140 - 430 K/uL Final MCV 10/23/2020 83.0 78.0 - 97.0 fL Final MCH 10/23/2020 26.7 25.0 - 33.0 pg Final MCHC 10/23/2020 32.2 32.0 - 36.0 g/dL Final RDW 10/23/2020 13.5 11.0 - 16.0 % Final MPV 10/23/2020 12.0 8.4 - 12.8 fl Final NRBC 10/23/2020 0.00 0 /100 WBCs Final ABSOLUTE NRBC 10/23/2020 0.00 0 K/uL Final DIFF METHOD 10/23/2020 Auto Final NEUTS 10/23/2020 67.4 43.0 - 75.0 % Final LYMPHS 10/23/2020 16.5* 18.2 - 47.4 % Final MONOS 10/23/2020 14.2* 4.00 - 11.00 % Final EOS 10/23/2020 0.9 0.0 - 8.0 % Final BASOS 10/23/2020 0.5 0.0 - 2.0 % Final Granulocytes, immature (%) 10/23/2020 0.5 0.0 - 0.9 % Final ABSOLUTE NEUTS 10/23/2020 1.47* 1.80 - 7.70 K/uL Final ABSOLUTE LYMPHS 10/23/2020 0.36* 1.00 - 3.10 K/uL Final ABSOLUTE MONOS 10/23/2020 0.31 0.20 - 0.80 K/uL Final ABSOLUTE EOS 10/23/2020 0.02 0.00 - 0.80 K/uL Final ABSOLUTE BASOS 10/23/2020 0.01 0.00 - 0.09 K/uL Final Granulocytes, immature 10/23/2020 0.01 0.00 - 0.05 K/uL Final TSH 10/23/2020 2.62 0.27 - 4.20 uIU/mL Final Assessment & Plan (11/27/2020 3:14 PM EDT): Patient has systemic lupus erythematosus marked by urticaria polyarthritis polyserositis depression. Escitalopram will be increased to 10 mg daily. Prednisone will stay the same at 10 mg. No signs or symptoms of infection. She will continue Benlysta monthly infusions. Lab work reviewed showing leukopenia and mild anemia. Liver functions and renal function are stable. We will repeat her CBC, BMP and add iron and TIBC today. Hospital Outpatient Visit on 10/23/2020 Component Date Value Ref Range Status C REACTIVE PROTEIN 10/23/2020 <3.0 0.0 - 4.0 mg/L Final WBC 10/23/2020 2.18* 4.00 - 11.00 K/uL Final RBC 10/23/2020 4.53 3.72 - 5.30 M/uL Final HGB 10/23/2020 12.1 10.6 - 15.5 g/dL Final HCT 10/23/2020 37.6 32.0 - 45.0 % Final PLT 10/23/2020 192 140 - 430 K/uL Final MCV 10/23/2020 83.0 78.0 - 97.0 fL Final MCH 10/23/2020 26.7 25.0 - 33.0 pg Final MCHC 10/23/2020 32.2 32.0 - 36.0 g/dL Final RDW 10/23/2020 13.5 11.0 - 16.0 % Final MPV 10/23/2020 12.0 8.4 - 12.8 fl Final NRBC 10/23/2020 0.00 0 /100 WBCs Final ABSOLUTE NRBC 10/23/2020 0.00 0 K/uL Final DIFF METHOD 10/23/2020 Auto Final NEUTS 10/23/2020 67.4 43.0 - 75.0 % Final LYMPHS 10/23/2020 16.5* 18.2 - 47.4 % Final MONOS 10/23/2020 14.2* 4.00 - 11.00 % Final EOS 10/23/2020 0.9 0.0 - 8.0 % Final BASOS 10/23/2020 0.5 0.0 - 2.0 % Final Granulocytes, immature (%) 10/23/2020 0.5 0.0 - 0.9 % Final ABSOLUTE NEUTS 10/23/2020 1.47* 1.80 - 7.70 K/uL Final ABSOLUTE LYMPHS 10/23/2020 0.36* 1.00 - 3.10 K/uL Final ABSOLUTE MONOS 10/23/2020 0.31 0.20 - 0.80 K/uL Final ABSOLUTE EOS 10/23/2020 0.02 0.00 - 0.80 K/uL Final ABSOLUTE BASOS 10/23/2020 0.01 0.00 - 0.09 K/uL Final Granulocytes, immature 10/23/2020 0.01 0.00 - 0.05 K/uL Final TSH 10/23/2020 2.62 0.27 - 4.20 uIU/mL Final Infusion on 09/06/2020 Component Date Value Ref Range Status WBC 09/06/2020 2.95* 4.00 - 11.00 K/uL Final RBC 09/06/2020 4.66 3.72 - 5.30 M/uL Final HGB 09/06/2020 12.2 10.6 - 15.5 g/dL Final HCT 09/06/2020 36.7 32.0 - 45.0 % Final PLT 09/06/2020 187 140 - 430 K/uL Final MCV 09/06/2020 78.8 78.0 - 97.0 fL Final MCH 09/06/2020 26.2 25.0 - 33.0 pg Final MCHC 09/06/2020 33.2 32.0 - 36.0 g/dL Final RDW 09/06/2020 13.9 11.0 - 16.0 % Final MPV 09/06/2020 10.7 8.4 - 12.8 fl Final NRBC 09/06/2020 0.00 0 /100 WBCs Final ABSOLUTE NRBC 09/06/2020 0.00 0 K/uL Final DIFF METHOD 09/06/2020 Auto Final NEUTS 09/06/2020 79.0* 43.0 - 75.0 % Final LYMPHS 09/06/2020 9.2* 18.2 - 47.4 % Final MONOS 09/06/2020 9.5 4.00 - 11.00 % Final EOS 09/06/2020 1.0 0.0 - 8.0 % Final BASOS 09/06/2020 0.3 0.0 - 2.0 % Final Granulocytes, immature (%) 09/06/2020 1.0* 0.0 - 0.9 % Final ABSOLUTE NEUTS 09/06/2020 2.33 1.80 - 7.70 K/uL Final ABSOLUTE LYMPHS 09/06/2020 0.27* 1.00 - 3.10 K/uL Final ABSOLUTE MONOS 09/06/2020 0.28 0.20 - 0.80 K/uL Final ABSOLUTE EOS 09/06/2020 0.03 0.00 - 0.80 K/uL Final ABSOLUTE BASOS 09/06/2020 0.01 0.00 - 0.09 K/uL Final Granulocytes, immature 09/06/2020 0.03 0.00 - 0.05 K/uL Final SODIUM 09/06/2020 139 133 - 146 mmol/L Final POTASSIUM 09/06/2020 3.6 3.3 - 5.1 mmol/L Final CHLORIDE 09/06/2020 107 96 - 108 mmol/L Final CO2 09/06/2020 24 21 - 35 mmol/L Final BUN 09/06/2020 15 6 - 19 mg/dL Final CREATININE 09/06/2020 1.00 0.5 - 1.5 mg/dL Final GLUCOSE 09/06/2020 96 70 - 99 mg/dL Final ALBUMIN 09/06/2020 4.1 3.9 - 4.8 g/dL Final TOTAL PROTEIN 09/06/2020 7.3 6.5 - 8.0 g/dL Final CALCIUM 09/06/2020 9.1 8.4 - 10.3 mg/dL Final ALKALINE PHOSPHATASE 09/06/2020 70 39 - 117 U/L Final TOTAL BILIRUBIN 09/06/2020 0.3 0.0 - 1.2 mg/dL Final AST 09/06/2020 15 0 - 37 U/L Final ALT 09/06/2020 13 0 - 40 U/L Final GLOBULIN 09/06/2020 3.2 1 - 4.8 g/dL Final EGFR 09/06/2020 74 >59 mL/min/1.73m2 Final Estimated glomerular filtration rate calculated using the CKD-EPI equation. ANION GAP 09/06/2020 12 10 - 20 mmol/L Final C3 09/06/2020 60* 81 - 157 mg/dl Final C4 09/06/2020 20 12 - 39 mg/dL Final ANTI DSDNA ANTIBODY 09/06/2020 POSITIVE AT 1:1280 Final Comment: Performing Physician, Jb Thornton M.D., [id number] Normal: Negative at 1:10 Anti-chickaloon DNA Antibodies detected on Crithidia Luciliae Substrate [...] other rheumatic diseases or in drug-induced SLE. Sndu-[id number]-hwnztxpj DNA antibodies are usually detected in SLE patients with active disease, but not in those with sponta neous or induced remissions. Sequential testing of serum for the presence and titer of this antibody provides a cost-effective approach to following disease activity in many patients with SLE. 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 I will start her on 5 mg of Lexapro daily. She will continue on Benlysta though for the 3 to 4 days each month before she gets the infusion when she feels more sore and stiff she may increase her prednisone from 6 mg daily to 10 mg daily. Lab work was sent off today we discussed both depression and fatigue in the setting of systemic lupus as well as other factors which can come into play including cerebritis, hypothyroidism and steroid myopathy. I will call her with today's labs. Infusion on 09/06/2020 Component Date Value Ref Range Status WBC 09/06/2020 2.95* 4.00 - 11.00 K/uL Final RBC 09/06/2020 4.66 3.72 - 5.30 M/uL Final HGB 09/06/2020 12.2 10.6 - 15.5 g/dL Final HCT 09/06/2020 36.7 32.0 - 45.0 % Final PLT 09/06/2020 187 140 - 430 K/uL Final MCV 09/06/2020 78.8 78.0 - 97.0 fL Final MCH 09/06/2020 26.2 25.0 - 33.0 pg Final MCHC 09/06/2020 33.2 32.0 - 36.0 g/dL Final RDW 09/06/2020 13.9 11.0 - 16.0 % Final MPV 09/06/2020 10.7 8.4 - 12.8 fl Final NRBC 09/06/2020 0.00 0 /100 WBCs Final ABSOLUTE NRBC 09/06/2020 0.00 0 K/uL Final DIFF METHOD 09/06/2020 Auto Final NEUTS 09/06/2020 79.0* 43.0 - 75.0 % Final LYMPHS 09/06/2020 9.2* 18.2 - 47.4 % Final MONOS 09/06/2020 9.5 4.00 - 11.00 % Final EOS 09/06/2020 1.0 0.0 - 8.0 % Final BASOS 09/06/2020 0.3 0.0 - 2.0 % Final Granulocytes, immature (%) 09/06/2020 1.0* 0.0 - 0.9 % Final ABSOLUTE NEUTS 09/06/2020 2.33 1.80 - 7.70 K/uL Final ABSOLUTE LYMPHS 09/06/2020 0.27* 1.00 - 3.10 K/uL Final ABSOLUTE MONOS 09/06/2020 0.28 0.20 - 0.80 K/uL Final ABSOLUTE EOS 09/06/2020 0.03 0.00 - 0.80 K/uL Final ABSOLUTE BASOS 09/06/2020 0.01 0.00 - 0.09 K/uL Final Granulocytes, immature 09/06/2020 0.03 0.00 - 0.05 K/uL Final SODIUM 09/06/2020 139 133 - 146 mmol/L Final POTASSIUM 09/06/2020 3.6 3.3 - 5.1 mmol/L Final CHLORIDE 09/06/2020 107 96 - 108 mmol/L Final CO2 09/06/2020 24 21 - 35 mmol/L Final BUN 09/06/2020 15 6 - 19 mg/dL Final CREATININE 09/06/2020 1.00 0.5 - 1.5 mg/dL Final GLUCOSE 09/06/2020 96 70 - 99 mg/dL Final ALBUMIN 09/06/2020 4.1 3.9 - 4.8 g/dL Final TOTAL PROTEIN 09/06/2020 7.3 6.5 - 8.0 g/dL Final CALCIUM 09/06/2020 9.1 8.4 - 10.3 mg/dL Final ALKALINE PHOSPHATASE 09/06/2020 70 39 - 117 U/L Final TOTAL BILIRUBIN 09/06/2020 0.3 0.0 - 1.2 mg/dL Final AST 09/06/2020 15 0 - 37 U/L Final ALT 09/06/2020 13 0 - 40 U/L Final GLOBULIN 09/06/2020 3.2 1 - 4.8 g/dL Final EGFR 09/06/2020 74 >59 mL/min/1.73m2 Final Estimated glomerular filtration rate calculated using the CKD-EPI equation. ANION GAP 09/06/2020 12 10 - 20 mmol/L Final C3 09/06/2020 60* 81 - 157 mg/dl Final C4 09/06/2020 20 12 - 39 mg/dL Final ANTI DSDNA ANTIBODY 09/06/2020 POSITIVE AT 1:1280 Final Comment: Performing Physician, Jb Thornton M.D., [id number] Normal: Negative at 1:10 Anti-chickaloon DNA Antibodies detected on Crithidia Luciliae Substrate [...] other rheumatic diseases or in drug-induced SLE. Tnua-rdqjck-lykywopp DNA antibodies are usually detected in SLE patients with active disease, but not in those with sponta neous or induced remissions. Sequential testing of serum for the presence and titer of this antibody provides a cost-effective approach to following disease activity in many patients with SLE. 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 No side effects to medications the long-term risks were discussed. After full discussion of risks and benefits she will continue on her monthly Benlysta infusions and prednisone is lowered to 4 mg daily and in 1 month to 3 mg daily. Laboratory work will be rechecked prior to her next visit. Infusion on 06/05/2020 Component Date Value Ref Range Status WBC 06/05/2020 4.22 4.00 - 11.00 K/uL Final Note Reference Range updates to all CBC and Differential results. RBC 06/05/2020 4.84 3.72 - 5.30 M/uL Final HGB 06/05/2020 12.1 10.6 - 15.5 g/dL Final Note updated Reference Ranges for all CBC and Differential results. HCT 06/05/2020 39.0 32.0 - 45.0 % Final PLT 06/05/2020 238 140 - 430 K/uL Final MCV 06/05/2020 80.6 78.0 - 97.0 fL Final MCH 06/05/2020 25.0 25.0 - 33.0 pg Final MCHC 06/05/2020 31.0* 32.0 - 36.0 g/dL Final RDW 06/05/2020 14.5 11.0 - 16.0 % Final MPV 06/05/2020 10.3 8.4 - 12.8 fl Final NRBC 06/05/2020 0.00 0 /100 WBCs Final ABSOLUTE NRBC 06/05/2020 0.00 0 K/uL Final DIFF METHOD 06/05/2020 Auto Final NEUTS 06/05/2020 76.5* 43.0 - 75.0 % Final LYMPHS 06/05/2020 12.6* 18.2 - 47.4 % Final MONOS 06/05/2020 8.5 4.00 - 11.00 % Final EOS 06/05/2020 0.7 0.0 - 8.0 % Final BASOS 06/05/2020 0.5 0.0 - 2.0 % Final Granulocytes, immature (%) 06/05/2020 1.2* 0.0 - 0.9 % Final ABSOLUTE NEUTS 06/05/2020 3.23 1.80 - 7.70 K/uL Final ABSOLUTE LYMPHS 06/05/2020 0.53* 1.00 - 3.10 K/uL Final ABSOLUTE MONOS 06/05/2020 0.36 0.20 - 0.80 K/uL Final ABSOLUTE EOS 06/05/2020 0.03 0.00 - 0.80 K/uL Final ABSOLUTE BASOS 06/05/2020 0.02 0.00 - 0.09 K/uL Final Granulocytes, immature 06/05/2020 0.05 0.00 - 0.05 K/uL Final SODIUM 06/05/2020 142 133 - 146 mmol/L Final POTASSIUM 06/05/2020 3.1* 3.3 - 5.1 mmol/L Final CHLORIDE 06/05/2020 106 96 - 108 mmol/L Final CO2 06/05/2020 26 21 - 35 mmol/L Final BUN 06/05/2020 17 6 - 19 mg/dL Final CREATININE 06/05/2020 1.10 0.5 - 1.5 mg/dL Final GLUCOSE 06/05/2020 84 70 - 99 mg/dL Final ALBUMIN 06/05/2020 3.8* 3.9 - 4.8 g/dL Final TOTAL PROTEIN 06/05/2020 6.3* 6.5 - 8.0 g/dL Final CALCIUM 06/05/2020 8.8 8.4 - 10.3 mg/dL Final ALKALINE PHOSPHATASE 06/05/2020 74 39 - 117 U/L Final TOTAL BILIRUBIN 06/05/2020 0.2 0.0 - 1.2 mg/dL Final AST 06/05/2020 12 0 - 37 U/L Final ALT 06/05/2020 14 0 - 40 U/L Final GLOBULIN 06/05/2020 2.5 1 - 4.8 g/dL Final EGFR 06/05/2020 66 >59 mL/min/1.73m2 Final Estimated glomerular filtration rate calculated using the CKD-EPI equation. ANION GAP 06/05/2020 13 10 - 20 mmol/L Final C3 06/05/2020 44* 81 - 157 mg/dl Final C4 06/05/2020 13 12 - 39 mg/dL Final ANTI DSDNA ANTIBODY 06/05/2020 POSITIVE AT 1:160 Final Comment: Megha Powell M.D., Director Clinical Immunology [facility] [id number] Normal: Negative at 1:10 Anti-chickaloon DNA Antibodies detected on Crithidia Luciliae Substrate [...] other rheumatic diseases or in drug-induced SLE. Txql-alelkr-ityvlggx DNA antibodies are usually detected in SLE patients with active disease, but not in those with spontaneous or induced remissions. Sequential testing of serum for the presence and titer of this antibody provides a cost-effective approach to following disease activity in many patients with SLE. Assessment & Plan (07/19/2019 4:21 PM EST): Patient with systemic lupus marked by polyarthralgias, polyarthritis, subacute cutaneous lupus, and history of pleuropericarditis presents with worsening epigastric pain, arthralgias myalgias and palpitations. We will again try to get her treatment with monthly Benlysta while in the meantime continuing her on 15 mg of prednisone and stopping omeprazole and substituting 40 mg of pantoprazole in the evening. In addition she will have an echocardiogram done. I will call her once she gets approval for Benlysta. Previous lab work was reviewed with her. Greater than 50% of this 29-minute visit was spent in [id number]-ih-[id number] conversation with her going over risks and benefits of Benlysta as well as low-dose prednisone. Office Visit on 06/15/2019 Component Date Value Ref Range Status URINE HCG 06/15/2019 Negative, Internal QCs acceptable Negative Final Hospital Outpatient Visit on 04/26/2019 Component Date Value Ref Range Status TSH 04/26/2019 1.14 0.27 - 4.20 uIU/mL Final HCG BETA 04/26/2019 0.2 mIU/mL Final Comment: Interpretation: FEMALE: Negative: Less than or equal to 1 mIU/mL. 4 Weeks Post Conception: 9.5 - 750 mIU/mL. 12 Weeks Post Conception: 48589 - [id number] mIU/mL. 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 She has had no flares. She is on 20 mg of prednisone and 500 mg of CellCept twice daily. She has had no intercurrent infections. I reviewed her lab work. I would like to start her on Benlysta. There has been some issues with her insurance but I hope we can get this started soon. In the meantime giving her 5 mg tablets of prednisone and explaining long-term risks of prednisone I am decreasing her dose to 17.5 mg daily for 3 weeks then 15 mg daily thereafter. She will continue on CellCept at the current dose pending my review of her lab work. She will have a flu vaccine next month. Hospital Outpatient Visit on 12/28/2018 Component Date Value Ref Range Status SODIUM 12/28/2018 143 133 - 146 mmol/L Final POTASSIUM 12/28/2018 3.8 3.3 - 5.1 mmol/L Final CHLORIDE 12/28/2018 102 96 - 108 mmol/L Final CO2 12/28/2018 25 21 - 35 mmol/L Final BUN 12/28/2018 17 6 - 19 mg/dL Final CREATININE 12/28/2018 0.90 0.5 - 1.5 mg/dL Final GLUCOSE 12/28/2018 76 70 - 99 mg/dL Final ALBUMIN 12/28/2018 4.0 3.9 - 4.8 g/dL Final TOTAL PROTEIN 12/28/2018 8.0 6.5 - 8.0 g/dL Final CALCIUM 12/28/2018 9.5 8.4 - 10.3 mg/dL Final ALKALINE PHOSPHATASE 12/28/2018 63 39 - 117 U/L Final TOTAL BILIRUBIN 12/28/2018 0.2 0.0 - 1.2 mg/dL Final AST 12/28/2018 17 0 - 37 U/L Final ALT 12/28/2018 14 0 - 40 U/L Final GLOBULIN 12/28/2018 4.0 1 - 4.8 g/dL Final EGFR 12/28/2018 86 >59 mL/min/1.73m2 Final If patient is black, multiply result by 1.159. Estimated glomerular filtration rate calculated using the CKD-EPI equation. ANION GAP 12/28/2018 20 10 - 20 mmol/L Final C REACTIVE PROTEIN 12/28/2018 19.3* 0.0 - 4.0 mg/L Final WBC 12/28/2018 7.68 3.40 - 11.20 K/uL Final RBC 12/28/2018 5.03* 3.80 - 4.80 M/uL Final HGB 12/28/2018 13.1 12.0 - 15.0 g/dL Final HCT 12/28/2018 42.3 36.0 - 46.0 % Final PLT 12/28/2018 308 130 - 400 K/uL Final MCV 12/28/2018 84.1 79.0 - 98.0 fL Final MCH 12/28/2018 26.0* 27.0 - 34.8 pg Final MCHC 12/28/2018 31.0* 31.5 - 36.0 g/dL Final RDW 12/28/2018 13.8 10.8 - 14.6 % Final MPV 12/28/2018 10.6 9.4 - 12.4 fl Final NRBC 12/28/2018 0.00 0.00 /100 WBCs Final ABSOLUTE NRBC 12/28/2018 0.00 0.00 K/uL Final DIFF METHOD 12/28/2018 Auto Final NEUTS 12/28/2018 87.1* 45.30 - 77.70 % Final LYMPHS 12/28/2018 6.4* 12.30 - 39.70 % Final MONOS 12/28/2018 4.9 4.10 - 12.80 % Final EOS 12/28/2018 0.1 0 - 7.2 % Final BASOS 12/28/2018 0.1 0 - 2.80 % Final Granulocytes, immature (%) 12/28/2018 1.4* 0.0 - 0.9 % Final ABSOLUTE NEUTS 12/28/2018 6.68 1.40 - 7.70 K/uL Final ABSOLUTE LYMPHS 12/28/2018 0.49* 0.60 - 3.20 K/uL Final ABSOLUTE MONOS 12/28/2018 0.38 0.11 - 0.59 K/uL Final ABSOLUTE EOS 12/28/2018 0.01 0.01 - 0.50 K/uL Final ABSOLUTE BASOS 12/28/2018 0.01 0.00 - 0.08 K/uL Final Granulocytes, immature 12/28/2018 0.11* 0.00 - 0.05 K/uL Final COLOR 12/28/2018 Yellow Yellow Final CLARITY 12/28/2018 Clear Final GLUCOSE 12/28/2018 Negative Negative Final BILI 12/28/2018 Negative Negative Final KETONES 12/28/2018 Negative Negative Final SPECIFIC GRAVITY 12/28/2018 1.015 1.005 - 1.030 Final BLOOD 12/28/2018 Negative Negative Final PH 12/28/2018 7.5 5.0 - 8.0 Final Protein-UA 12/28/2018 Trace* Negative Final NITRITE 12/28/2018 Negative Negative Final Leukocyte esterase, ur 12/28/2018 Negative Negative Final Assessment & Plan (12/28/2018 11:20 AM EDT): Patient with systemic lupus marked by polyarthritis and recurrent rash without evidence of nephritis or pleuropericarditis. Discussion today concerning risks and benefits of changing medication to Benlysta. We will see her back in 2 weeks. Administer a 2 cc (80 mg) intramuscular injection of Depo-Medrol today. Increase prednisone to 10 mg twice daily. Check urinalysis and complete set of lab work. All questions answered. Greater than 50% of this 29-minute visit was spent [id number] conversation with the patient going over the natural history and treatment of lupus as well as possible new directions and treatment and coordinating my care with out of her primary care physician. No visits with results within 3 Month(s) from this visit. Latest known visit with results is: Hospital Outpatient Visit on 09/27/2018 Component Date Value Ref Range Status C4 09/27/2018 15 12 - 39 mg/dL Final C3 09/27/2018 67* 81 - 157 mg/dl Final ANTI DSDNA ANTIBODY 09/27/2018 POSITIVE AT 1:160 Final Comment: Megha Powell M.D., Director Clinical Immunology Laboratory [id number] Normal: Negative at 1:10 Anti-chickaloon DNA Antibodies detected on Crithidia Luciliae Substrate [...] other rheumatic diseases or in drug-induced SLE. Nmiu-topxed-jwtwbnjr DNA antibodies are usually detected in SLE patients with active disease, but not in those with spontaneous or induced remissions. Sequential testing of serum for the presence and titer of this antibody provides a cost-effective approach to following disease activity in many patients with SLE. SODIUM 09/27/2018 139 133 - 146 mmol/L Final POTASSIUM 09/27/2018 3.4 3.3 - 5.1 mmol/L Final CHLORIDE 09/27/2018 101 96 - 108 mmol/L Final CO2 09/27/2018 23 21 - 35 mmol/L Final BUN 09/27/2018 20* 6 - 19 mg/dL Final CREATININE 09/27/2018 0.80 0.5 - 1.5 mg/dL Final GLUCOSE 09/27/2018 94 70 - 99 mg/dL Final ALBUMIN 09/27/2018 4.3 3.9 - 4.8 g/dL Final TOTAL PROTEIN 09/27/2018 8.2* 6.5 - 8.0 g/dL Final CALCIUM 09/27/2018 9.5 8.4 - 10.3 mg/dL Final ALKALINE PHOSPHATASE 09/27/2018 69 39 - 117 U/L Final TOTAL BILIRUBIN 09/27/2018 0.3 0.0 - 1.2 mg/dL Final Comment: Results from certain multiple myeloma patients may show a positive bias in recovery. Not all multiple myeloma patients show the bias and severity of the bias may vary between patients. In very rare cases, gammopathy, in particular type IgM (Waldenstrom's macroglobulinemia), may cause unreliable results. AST 09/27/2018 20 0 - 37 U/L Final ALT 09/27/2018 15 0 - 40 U/L Final GLOBULIN 09/27/2018 3.9 1 - 4.8 g/dL Final EGFR 09/27/2018 99 >59 mL/min/1.73m2 Final If patient is black, multiply result by 1.159. Estimated glomerular filtration rate calculated using the CKD-EPI equation. ANION GAP 09/27/2018 18 10 - 20 mmol/L Final TSH 09/27/2018 0.96 0.27 - 4.20 uIU/mL Final WBC 09/27/2018 8.48 3.40 - 11.20 K/uL Final RBC 09/27/2018 5.02* 3.80 - 4.80 M/uL Final HGB 09/27/2018 12.8 12.0 - 15.0 g/dL Final HCT 09/27/2018 41.4 36.0 - 46.0 % Final PLT 09/27/2018 311 130 - 400 K/uL Final MCV 09/27/2018 82.5 79.0 - 98.0 fL Final MCH 09/27/2018 25.5* 27.0 - 34.8 pg Final MCHC 09/27/2018 30.9* 31.5 - 36.0 g/dL Final RDW 09/27/2018 13.2 10.8 - 14.6 % Final MPV 09/27/2018 10.6 9.4 - 12.4 fl Final NRBC 09/27/2018 0.00 0.00 /100 WBCs Final ABSOLUTE NRBC 09/27/2018 0.00 0.00 K/uL Final DIFF METHOD 09/27/2018 Auto Final NEUTS 09/27/2018 91.2* 45.30 - 77.70 % Final LYMPHS 09/27/2018 4.6* 12.30 - 39.70 % Final MONOS 09/27/2018 3.2* 4.10 - 12.80 % Final EOS 09/27/2018 0.0 0 - 7.2 % Final BASOS 09/27/2018 0.2 0 - 2.80 % Final Granulocytes, immature (%) 09/27/2018 0.8 0.0 - 0.9 % Final ABSOLUTE NEUTS 09/27/2018 7.73* 1.40 - 7.70 K/uL Final ABSOLUTE LYMPHS 09/27/2018 0.39* 0.60 - 3.20 K/uL Final ABSOLUTE MONOS 09/27/2018 0.27 0.11 - 0.59 K/uL Final ABSOLUTE EOS 09/27/2018 0.00* 0.01 - 0.50 K/uL Final ABSOLUTE BASOS 09/27/2018 0.02 0.00 - 0.08 K/uL Final Granulocytes, immature 09/27/2018 0.07* 0.00 - 0.05 K/uL Final COLOR 09/27/2018 Yellow Yellow Final CLARITY 09/27/2018 Clear Final GLUCOSE 09/27/2018 Negative Negative Final BILI 09/27/2018 Negative Negative Final KETONES 09/27/2018 Trace* Negative Final SPECIFIC GRAVITY 09/27/2018 1.015 1.005 - 1.030 Final BLOOD 09/27/2018 Negative Negative Final PH 09/27/2018 7.0 5.0 - 8.0 Final Protein-UA 09/27/2018 Trace* Negative Final NITRITE 09/27/2018 Negative Negative Final Leukocyte esterase, ur 09/27/2018 Negative Negative Final Assessment & Plan (10/27/2018 1:01 PM EDT): I discussed the risks and benefits of beginning treatment with Benlysta. I think this would be a good option for her to reduce her dependence on steroids. Her systemic lupus is marked by recurrent subacute cutaneous lupus as well as inflammatory arthritis. We talked about her poor dentition the need to follow-up with a dentist as chronically infected teeth and gums can place her at risk for systemic infection given her treatment with immunosuppressive medications. 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 Her blood counts are within normal limits which is reassuring and there is no signs or symptoms of lupus nephritis. She will try to drop her prednisone to 10 mg daily and for now stay on CellCept until she gets a call from a nurse regarding approval of Benlysta. No visits with results within 30 Day(s) from this visit. Latest known visit with results is: Hospital Outpatient Visit on 09/27/2018 Component Date Value Ref Range Status C4 09/27/2018 15 12 - 39 mg/dL Final C3 09/27/2018 67* 81 - 157 mg/dl Final ANTI DSDNA ANTIBODY 09/27/2018 POSITIVE AT 1:160 Final Comment: Megha Powell M.D., Director Clinical Immunology Laboratory [id number] Normal: Negative at 1:10 Anti-chickaloon DNA Antibodies detected on Crithidia Luciliae Substrate [...] other rheumatic diseases or in drug-induced SLE. Zvxi-srcxgr-junnhhtw DNA antibodies are usually detected in SLE patients with active disease, but not in those with spontaneous or induced remissions. Sequential testing of serum for the presence and titer of this antibody provides a cost-effective approach to following disease activity in many patients with SLE. SODIUM 09/27/2018 139 133 - 146 mmol/L Final POTASSIUM 09/27/2018 3.4 3.3 - 5.1 mmol/L Final CHLORIDE 09/27/2018 101 96 - 108 mmol/L Final CO2 09/27/2018 23 21 - 35 mmol/L Final BUN 09/27/2018 20* 6 - 19 mg/dL Final CREATININE 09/27/2018 0.80 0.5 - 1.5 mg/dL Final GLUCOSE 09/27/2018 94 70 - 99 mg/dL Final ALBUMIN 09/27/2018 4.3 3.9 - 4.8 g/dL Final TOTAL PROTEIN 09/27/2018 8.2* 6.5 - 8.0 g/dL Final CALCIUM 09/27/2018 9.5 8.4 - 10.3 mg/dL Final ALKALINE PHOSPHATASE 09/27/2018 69 39 - 117 U/L Final TOTAL BILIRUBIN 09/27/2018 0.3 0.0 - 1.2 mg/dL Final Comment: Results from certain multiple myeloma patients may show a positive bias in recovery. Not all multiple myeloma patients show the bias and severity of the bias may vary between patients. In very rare cases, gammopathy, in particular type IgM (Waldenstrom's macroglobulinemia), may cause unreliable results. AST 09/27/2018 20 0 - 37 U/L Final ALT 09/27/2018 15 0 - 40 U/L Final GLOBULIN 09/27/2018 3.9 1 - 4.8 g/dL Final EGFR 09/27/2018 99 >59 mL/min/1.73m2 Final If patient is black, multiply result by 1.159. Estimated glomerular filtration rate calculated using the CKD-EPI equation. ANION GAP 09/27/2018 18 10 - 20 mmol/L Final TSH 09/27/2018 0.96 0.27 - 4.20 uIU/mL Final WBC 09/27/2018 8.48 3.40 - 11.20 K/uL Final RBC 09/27/2018 5.02* 3.80 - 4.80 M/uL Final HGB 09/27/2018 12.8 12.0 - 15.0 g/dL Final HCT 09/27/2018 41.4 36.0 - 46.0 % Final PLT 09/27/2018 311 130 - 400 K/uL Final MCV 09/27/2018 82.5 79.0 - 98.0 fL Final MCH 09/27/2018 25.5* 27.0 - 34.8 pg Final MCHC 09/27/2018 30.9* 31.5 - 36.0 g/dL Final RDW 09/27/2018 13.2 10.8 - 14.6 % Final MPV 09/27/2018 10.6 9.4 - 12.4 fl Final NRBC 09/27/2018 0.00 0.00 /100 WBCs Final ABSOLUTE NRBC 09/27/2018 0.00 0.00 K/uL Final DIFF METHOD 09/27/2018 Auto Final NEUTS 09/27/2018 91.2* 45.30 - 77.70 % Final LYMPHS 09/27/2018 4.6* 12.30 - 39.70 % Final MONOS 09/27/2018 3.2* 4.10 - 12.80 % Final EOS 09/27/2018 0.0 0 - 7.2 % Final BASOS 09/27/2018 0.2 0 - 2.80 % Final Granulocytes, immature (%) 09/27/2018 0.8 0.0 - 0.9 % Final ABSOLUTE NEUTS 09/27/2018 7.73* 1.40 - 7.70 K/uL Final ABSOLUTE LYMPHS 09/27/2018 0.39* 0.60 - 3.20 K/uL Final ABSOLUTE MONOS 09/27/2018 0.27 0.11 - 0.59 K/uL Final ABSOLUTE EOS 09/27/2018 0.00* 0.01 - 0.50 K/uL Final ABSOLUTE BASOS 09/27/2018 0.02 0.00 - 0.08 K/uL Final Granulocytes, immature 09/27/2018 0.07* 0.00 - 0.05 K/uL Final COLOR 09/27/2018 Yellow Yellow Final CLARITY 09/27/2018 Clear Final GLUCOSE 09/27/2018 Negative Negative Final BILI 09/27/2018 Negative Negative Final KETONES 09/27/2018 Trace* Negative Final SPECIFIC GRAVITY 09/27/2018 1.015 1.005 - 1.030 Final BLOOD 09/27/2018 Negative Negative Final PH 09/27/2018 7.0 5.0 - 8.0 Final Protein-UA 09/27/2018 Trace* Negative Final NITRITE 09/27/2018 Negative Negative Final Leukocyte esterase, ur 09/27/2018 Negative Negative Final Assessment & Plan (09/27/2018 12:20 PM EDT): Young woman with 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 After full discussion of risks and benefits and going over discussion regarding risks and benefits of Benlysta, we will hold off on that therapy for now. I am going to increase her CellCept from 500 mg twice daily to 1000 mg twice daily and increase her prednisone to 20 mg twice daily with a slow taper back down to 15 mg over the next 3-1/2 weeks. She will call me if there is a problem. She will have a full set of lab work done today including lupus serologies and urinalysis. Greater than 50% of this 30-minute visit was spent in [id number] conversation with the patient going over the risks and benefits of her medication, considering intravenous monthly therapy with Benlysta, and mentioning regular dental checkups because of her poor dentition and risk for gingivitis. Assessment & Plan (07/01/2018 12:28 PM EST): Doing better after a systemic flare. Continue CellCept at 500 mg twice daily. Slowly reduce prednisone by 2.5 mg weekly but stop at 7.5 mg daily. Continue on vitamin D3 1000 units daily. Calcium from dairy rich meals which she already does. 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 These are all consistent with lupus flare. She will have another set of lab work done on the next visit in 4 weeks. All of her questions were answered. We will start on 10 mg of Zyrtec daily. Fully this will help heal some of the urticarial lesions. Assessment & Plan (06/09/2018 11:42 AM EST): Her inflammatory arthritis is worsened. I am increasing her prednisone from 10 mg to 30 mg a day. I am also starting her on 5 mg of Flexeril at bedtime. She will remain on CellCept at 500 mg twice daily. She will receive Ilotycin ointment to be used at bedtime for 8 mucopurulent conjunctivitis of the left eye and to call me within 24 hours if there is no partial resolution. We also talked about appropriate hygiene for the eye with washes with baby shampoo 3 times daily and patting dry with a sterile towel. I reviewed lab work in January which she will repeat today showing 1+ hematuria, C4 of 15, CRP of 21, hemoglobin 12.1 with hematocrit 38.1 and white count of 3600 with a normal differential. Normal chemistry profile. Assessment & Plan (02/16/2018 5:18 PM EDT): We discussed the issue of . She is currently having protected sex using condoms as the primary form of contraception. She understands the need for family planning and a discussion with me if she does plan to become as medication which I believe be administering could affect the outcome of her and cause deformities. We also talked about the risks of a flare of her lupus during . As I explained to her today, if her lupus is stable going into and she does not have active nephritis or vasculitis and no history of thrombophlebitis or recurrent abortions which she has not then as long as it is done with some planning and discussion with may before having unprotected sex that it is certainly an option worth considering for her and her significant other Chronic pain of both knees 07/30/2017 Skin rash 06/11/2017 Assessment & Plan (08/18/2021 9:57 PM EST): She understands that it is part of her disease flare presentation and agrees to continue combination of prednisone 15 mg daily in addition to Plaquenil and Benlysta as prescribed previously with close follow-up. 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 Assessment & Plan (06/09/2018 11:42 AM EST): This is subacute cutaneous lupus. Assessment & Plan (02/16/2018 5:13 PM EDT): This seems consistent with subacute cutaneous lupus. There is no evidence of discoid lupus. 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 Daily calcium and vitamin D supplementation. Regular weightbearing exercises. Fall prevention strategies. Monitor for multiple side effects including but not limited to increased risk of hips, knees and jaw osteonecrosis, mood swings, increased intraocular and systemic pressure, diabetes, osteoporosis, fluid retention, increased appetite, risk of infection, bruising, hair thinning etc. Assessment & Plan (06/19/2020 2:26 PM EST): Discussed long-range side effects of low-dose glucocorticoids which are necessary for treatment of her lupus. 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 We discussed the temporary nature of [...] 06/05/2020 Component Date Value Ref Range Status WBC 06/05/2020 4.22 4.00 - 11.00 K/uL Final Note Reference Range updates to all CBC and Differential results. RBC 06/05/2020 4.84 3.72 - 5.30 M/uL Final HGB 06/05/2020 12.1 10.6 - 15.5 g/dL Final Note updated Reference Ranges for all CBC and Differential results. HCT 06/05/2020 39.0 32.0 - 45.0 % Final PLT 06/05/2020 238 140 - 430 K/uL Final MCV 06/05/2020 80.6 78.0 - 97.0 fL Final MCH 06/05/2020 25.0 25.0 - 33.0 pg Final MCHC 06/05/2020 31.0* 32.0 - 36.0 g/dL Final RDW 06/05/2020 14.5 11.0 - 16.0 % Final MPV 06/05/2020 10.3 8.4 - 12.8 fl Final NRBC 06/05/2020 0.00 0 /100 WBCs Final ABSOLUTE NRBC 06/05/2020 0.00 0 K/uL Final DIFF METHOD 06/05/2020 Auto Final NEUTS 06/05/2020 76.5* 43.0 - 75.0 % Final LYMPHS 06/05/2020 12.6* 18.2 - 47.4 % Final MONOS 06/05/2020 8.5 4.00 - 11.00 % Final EOS 06/05/2020 0.7 0.0 - 8.0 % Final BASOS 06/05/2020 0.5 0.0 - 2.0 % Final Granulocytes, immature (%) 06/05/2020 1.2* 0.0 - 0.9 % Final ABSOLUTE NEUTS 06/05/2020 3.23 1.80 - 7.70 K/uL Final ABSOLUTE LYMPHS 06/05/2020 0.53* 1.00 - 3.10 K/uL Final ABSOLUTE MONOS 06/05/2020 0.36 0.20 - 0.80 K/uL Final ABSOLUTE EOS 06/05/2020 0.03 0.00 - 0.80 K/uL Final ABSOLUTE BASOS 06/05/2020 0.02 0.00 - 0.09 K/uL Final Granulocytes, immature 06/05/2020 0.05 0.00 - 0.05 K/uL Final SODIUM 06/05/2020 142 133 - 146 mmol/L Final POTASSIUM 06/05/2020 3.1* 3.3 - 5.1 mmol/L Final CHLORIDE 06/05/2020 106 96 - 108 mmol/L Final CO2 06/05/2020 26 21 - 35 mmol/L Final BUN 06/05/2020 17 6 - 19 mg/dL Final CREATININE 06/05/2020 1.10 0.5 - 1.5 mg/dL Final GLUCOSE 06/05/2020 84 70 - 99 mg/dL Final ALBUMIN 06/05/2020 3.8* 3.9 - 4.8 g/dL Final TOTAL PROTEIN 06/05/2020 6.3* 6.5 - 8.0 g/dL Final CALCIUM 06/05/2020 8.8 8.4 - 10.3 mg/dL Final ALKALINE PHOSPHATASE 06/05/2020 74 39 - 117 U/L Final TOTAL BILIRUBIN 06/05/2020 0.2 0.0 - 1.2 mg/dL Final AST 06/05/2020 12 0 - 37 U/L Final ALT 06/05/2020 14 0 - 40 U/L Final GLOBULIN 06/05/2020 2.5 1 - 4.8 g/dL Final EGFR 06/05/2020 66 >59 mL/min/1.73m2 Final Estimated glomerular filtration rate calculated using the CKD-EPI equation. ANION GAP 06/05/2020 13 10 - 20 mmol/L Final C3 06/05/2020 44* 81 - 157 mg/dl Final C4 06/05/2020 13 12 - 39 mg/dL Final ANTI DSDNA ANTIBODY 06/05/2020 POSITIVE AT 1:160 Final Comment: Megha Powell M.D., Director Clinical Immunology Laboratory [id number] Normal: Negative at 1:10 Anti-chickaloon DNA Antibodies detected on Crithidia Luciliae Substrate [...] other rheumatic diseases or in drug-induced SLE. Bkcs-mrgxpn-iawzpqrj DNA antibodies are usually detected in SLE patients with active disease, but not in those with spontaneous or induced remissions. Sequential testing of serum for the presence and titer of this antibody provides a cost-effective approach to following disease activity in many patients with SLE. Inflammatory arthritis 06/11/201708/14 Assessment & Plan (10/27/2018 12:32 PM EDT): [place] Assessment & Plan (07/26/2018 3:53 PM EST): Active, stable, improved. Reduce prednisone to 5 mg daily and continue CellCept at 500 mg twice daily. Lab work will be checked on the next visit. Continue omeprazole as a gastroprotective agent. 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 After full discussion of risks and benefits I'm adding 500 mg of CellCept twice daily. Risks and benefits were discussed. Greater than 50% of this 28 minute visit was spent in kaht-zl-nkyo conversation with the patient going over the natural history and treatment of lupus, her acceptance of daily injections using Kineret as offered by my partner. We talked about long-range potential risks of prednisone. We discussed strategies for fall and fracture prevention. I discussed compliance with vitamin D3 at 1000 units daily. I reviewed previous lab work indicating a normal CBC with differential, normal liver function tests, a complement C4 of 17 and a complement C3 of 51. A complete set of lab work and urinalysis will be done today. I find no evidence for systemic vasculitis or nephritis. Undifferentiated connective tissue disease 06/11/2017 08/14/2023 Encounters Date Type Department Care Team Description 05/18/2025 11:00 AM EST Infusion [address] [address] Sara Gay MD, MPH Systemic lupus erythematosus, unspecified SLE type, unspecified organ involvement status (Primary Dx) 04/21/2025 1:00 PM EDT Infusion [facility] Medical Infusion Center [address] [place] [address] Sara Gay MD, MPH Systemic lupus erythematosus, unspecified SLE type, unspecified organ involvement status (Primary Dx) 03/16/2025 11:30 AM EDT Infusion [facility] Infusion Center [address] [place] [address] Sara Gay MD, MPH Systemic lupus erythematosus, unspecified SLE type, unspecified organ involvement status (Primary Dx) from Last 3 Months Family History Medical History Relation Comments No Known Problems Father Hyperlipidemia Mother Relation Status Comments Father Alive Mother Alive Social History Tobacco Use Types Packs/Day Years Used Date Smoking Tobacco: Never Smokeless Tobacco: Never Tobacco Cessation:Counseling Given: Not Answered Alcohol Use Standard Drinks/Week Comments No 0 [...] on file Sexual Orientation Not on file Last Filed Vital Signs Vital Sign Reading Time Taken Comments Blood Pressure 125/83 05/18/2025 11:00 AM EST Pulse 68 05/18/2025 11:00 AM EST Temperature 36.8 C (98.2 F) 05/18/2025 11:00 AM EST Respiratory Rate 16 05/18/2025 11:00 AM EST Oxygen Saturation 100% 05/18/2025 11:00 AM EST Inhaled Oxygen Concentration - - Weight 51.3 kg (113 lb) 05/18/2025 10:59 AM EST Height 165.1 cm (5' 5 ) 02/16/2025 9:37 AM EDT Body Mass Index 18.8 02/16/2025 9:37 AM EDT Plan of Treatment Upcoming Encounters Date Type Department Care Team (Late st Contact Info) Description 06/15/2025 11:00 AM EST Infusion [facility] Medical Infusion Center [address] [place] [id number] Sara Gay MD, MPH [address] [place] [phone] 07/13/2025 11:00 AM EST Infusion [facility] Infusion Center [address] [place] [phone] Sara Gay MD, MPH [address] [place] [phone] 08/10/2025 11:00 AM EST Infusion [facility] Infusion [address] [address] Sara Gay MD, MPH [address] [place] [phone] 08/24/2025 1:10 PM EST Office Visit [facility] Rheumatology [address] [place] [address] Sara Gay MD, MPH [address] [place] [phone] 09/07/2025 11:00 AM EDT Infusion [facility] Medical Infusion [address] [address] Sara Gay MD, MPH [address] [place] [phone] 10/05/2025 11:00 AM EDT Infusion [facility] Infusion [address] [address] Sara Gay MD, MPH [address] [place] [address] 11/02/2025 11:00 AM EDT Infusion [facility] Medical Infusion [facility] [address] [place] [phone] Sara Gay MD, MPH [address] [place] [phone] 11/30/2025 11:00 AM EDT Infusion [facility] Medical Infusion [facility] [address] [place] [phone] Sara Gay MD, MPH [address] [place] [address] 12/28/2025 11:00 AM EDT Infusion [facility] Medical Infusion Center [address] [place] [address] Sara Gay MD, MPH [address] [place] [phone] 01/25/2026 11:00 AM EDT Infusion [facility] Medical Infusion Center [address] [place] [address] Sara Gay MD, MPH [address] [place] [address] 02/22/2026 11:00 AM EDT Infusion [facility] Medical Infusion [facility] [address] [place] [phone] Sara Gay MD, MPH [address] [place] [phone] 03/22/2026 11:00 AM EDT Infusion [facility] [address] [place] [address] Sara Gay MD, MPH [address] [place] [address], [address] [address] [email or web address] 04/19/2026 11:00 AM EDT Infusion [facility] Infusion Center [address] [place] [address] Sara Gay MD, MPH [address] [place] [address], [address] [address] [email or web address] Health Maintenance Due Date Last Done Comments Adult Td,Tdap Booster 1990 DEPRESSION SCREENING 2000 HIV ONE-TIME SCREENING (18-65 YEARS) 2006 INFLUENZA VACCINE (#1) 2025 COVID-19 VACCINE (2024- season) 2025 PAP SMEAR 07/28/2027 07/28/2024, 1002/2019, 04/26/2019 IUD 07/28/2029 07/28/2024 HEPATITIS C SCREENING Completed 09/15/2024 , 09/15/2024, 09/15/2024, Additional history exists SMOKING STATUS SCREENING (Once After 26 Yrs) Completed 02/16/2025 HEPATITIS A VACCINES Aged Out No long er eligible based on patient's age to complete this topic HIB VACCINES Aged Out No longer eligi ble based on patient's age to complete this topic MENINGOCOCCAL VACCINES (ACWY) Aged Out No longer eligible based on patient's age to complete this topic MENINGOCOCCAL VACCINES (B) Aged Out N o longer eligible based on patient's age to complete this topic PNEUMOCOCCAL VACCINES (0-49 years) Aged Out No longer eligible based on patient's age to complete this topic Medical Devices Implanted Type Area Pedicurist Device Identifier Shelf Expiration Date Model / Serial / Lot Iud Implanted: (Quantity not on file) Intrauterine Device Procedures Procedure Name Priority Date/Time Associated Diagnosis Comments CBC AND DIFFERENTIAL Routine 05/18/2025 11:12 AM EST Systemic lupus erythematosus, unspecified SLE type, unspecified organ involvement status DOUBLE STRANDED DNA ANTIBODIES Routine 05/18/2025 11:12 AM EST Systemic lupus erythematosus, unspecified SLE type, unspecified organ involvement status COMPLEMENT C4 Routine 05/18/2025 11:12 AM EST Systemic lupus erythematosus, unspecified SLE type, unspecified organ involvement status COMPLEMENT C3 Routine 05/18/2025 11:12 AM EST Systemic lupus erythematosus, unspecified SLE type, unspecified organ involvement status COMPREHENSIVE METABOLIC PANEL (CMP) Routine 05/18/2025 11:12 AM EST Systemic lupus erythematosus, unspecified SLE type, unspecified organ involvement status CBC AND DIFFERENTIAL Routine 05/18/2025 11:12 AM EST Systemic lupus erythematosus, unspecified SLE type, unspecified organ involvement status HEPATITIS C ANTIBODY, QUALITATIVE Routine 09/15/2024 10:12 AM EDT Encounter for monitoring of belimumab therapy PAP TEST Routine 07/28/2024 12:00 AM EST from Last 3 Months or Most Recently Relevant to Health Maintenance Results * Comprehensive Metabolic Panel (CMP) (05/18/2025 11:12 AM EST) Sodium 137 136 - 145 mmol/L 05/18/2025 12:38 PM [facility] Potassium 3.8 3.4 - 5.1 mmol/L 05/18/2025 12:38 PM [facility] Chloride 105 98 - 107 mmol/L 05/18/2025 12:38 PM [facility] CO2 22 20 - 31 mmol/L 05/18/2025 12:38 PM [facility] Anion Gap 10 3 - 17 mmol/L 05/18/2025 12:38 PM [facility] BUN 19 6 - 23 mg/dL 05/18/2025 12:38 PM [facility] Creatinine 0.70 0.50 - 1.00 mg/dL 05/18/2025 12:38 PM [facility] eGFR 115 >59 mL/min/1.7 3m2 05/18/2025 12:38 PM [facility] Comment:Estimated glomerular filtration rate calculated using the CKD-EPI refit equation. Glucose 82 70 - 99 mg/dL 05/18/2025 12:38 PM [facility] Calcium 8.9 8.5 - 10.5 mg/dL 05/18/2025 12:38 PM [facility] AST 14 <33 U/L 05/18/2025 12:38 PM [facility] ALT 10 <34 U/L 05/18/2025 12:38 PM [facility] Alkaline Phosphatase 74 40 - 130 U/L 05/18/2025 12:38 PM [facility] Bilirubin, Total 0.2 0.0 - 1.2 mg/dL 05/18/2025 12:38 PM [facility] Total Protein 7.5 6.4 - 8.3 g/dL 05/18/2025 12:38 PM [facility] Albumin 4.5 3.5 - 5.2 g/dL 05/18/2025 12:38 PM [facility] Globulin 3.0 1.9 - 4.1 g/dL 05/18/2025 12:38 PM [facility] Blood (Blood) Venipuncture / Unknown 05/18/2025 11:12 AM EST 05/18/2025 11:29 AM EST us Sara Gay MD, MPH LAB BLOOD BKR ORDERABLES Final Result [address] [address] * (ABNORMAL) CBC and Differential (05/18/2025 11:12 AM EST) WBC 2.19(L) 4.00 - 11.00 K/uL 05/18/2025 11:36 AM [facility] RBC 4.17 4.00 - 5.20 M/uL 05/18/2025 11:36 AM [facility] Hemoglobin 11.4(L) 12.0 - 16.0 g/dL 05/18/2025 11:36 AM [facility] Hematocrit 34.9(L) 36.0 - 46.0 % 05/18/2025 11:36 AM [facility] MCV 83.7 80.0 - 100.0 fL 05/18/2025 11:36 AM [facility] MCH 27.3 27.0 - 31.0 pg 05/18/2025 11:36 AM [facility] MCHC 32.7 32.0 - 36.0 g/dL 05/18/2025 11:36 AM [facility] MPV 11.9 8.4 - 12.0 fL 05/18/2025 11:36 AM [facility] RDW-CV 14.2 11.5 - 14.5 % 05/18/2025 11:36 AM [facility] PLT 122(L) 150 - 450 K/uL 05/18/2025 11:36 AM [facility] Neutrophils 69.4 % 05/18/2025 11:36 AM [facility] Lymphocytes 16.4 % 05/18/2025 11:36 AM [facility] Monocytes 13.2 % 05/18/2025 11:36 AM [facility] Eosinophils 0.0 % 05/18/2025 11:36 AM [facility] Basophils 0.5 % 05/18/2025 11:36 AM [facility] Imm Grans 0.5 % 05/18/2025 11:36 AM [facility] NRBC 0.0 <=0.0 /100 WBCs 05/18/2025 11:36 AM [facility] Absolute Neutrophils 1.52(L) 1.92 - 7.60 K/uL 05/18/2025 11:36 AM [facility] Comment:The reference range for individuals with the Soni null phenotype (Fy(a-b-)) is 1.21-5.39 K/uL. Absolute Lymphocytes 0.36(L) 0.72 - 4.10 K/uL 05/18/2025 11:36 AM [facility] Absolute Monocytes 0.29 0.16 - 1.10 K/uL 05/18/2025 11:36 AM [facility] Absolute Eosinophils 0.00 0.00 - 0.50 K/uL 05/18/2025 11:36 AM [facility] Absolute Basophils 0.01 0.00 - 0.15 K/uL 05/18/2025 11:36 AM [facility] Absolute Imm Grans 0.01 0.00 - 0.09 K/uL 05/18/2025 11:36 AM [facility] Absolute NRBC 0.00 <=0.00 K cells/uL 05/18/2025 11:36 AM [facility] Absolute Neutrophils 1.52(L) 1.92 - 7.60 K/uL 05/18/2025 11:36 AM [facility] Comment:Automated cell count . Manual ANC may differ if performed. Diff Type Auto 05/18/2025 11:36 AM [facility] Blood (Blood) Venipuncture / Unknown 05/18/2025 11:12 AM EST 05/18/2025 11:28 AM EST us Sara Gay MD, MPH LAB BLOOD BKR ORDERABLES Final Result Performing Organization Address City/[facility]/ZIP Co de Phone Number [facility] [address] [place] [address] * Double-Stranded DNA Antibodies (05/18/2025 11:12 AM EST) Double Stranded DNA Negative at 1:10 Negative at 1:10 05/19/2025 2:55 PM EST [facility] Blood (Blood) Venipuncture / Unknown 05/18/2025 11:12 AM EST 05/18/2025 11:29 AM EST us Sara Gay MD, MPH LAB BLOOD BKR ORDERABLES Final Result [address] [address] * Complement C3 (05/18/2025 11:12 AM EST) C3 88 81 - 157 mg/dl 05/19/2025 2:07 PM EST [facility] Blood (Blood) Venipuncture / Unknown 05/18/2025 11:12 AM EST 05/18/2025 11:26 AM EST Result Ayesha Gay MD, MPH LAB BLOOD BKR ORDERABLES Final Result Performing Organization Address City/[facility]/ZIP Co de Phone Number [address] [address] * Complement C4 (05/18/2025 11:12 AM EST) C4 32 12 - 39 mg/dL 05/19/2025 2:07 PM EST [facility] Blood (Blood) Venipuncture / Unknown 05/18/2025 11:12 AM EST 05/18/2025 11:26 AM EST Result Ayesha Gay MD, MPH LAB BLOOD BKR ORDERABLES Final Result Performing Organization Address [facility] Co de Phone Number [address] [address] * Hepatitis C antibody, qualitative (09/15/2024 10:12 AM EDT) HCV NON-REACTIV E NON-REACTI VE [facility] Blood 09/15/2024 10:1 2 AM EDT 09/15/2024 10:20 AM EDT Result Ayesha Gay MD, MPH LAB BLOOD BKR ORDERABLES Final Result Performing Organization Address [facility] Co de Phone Number [address] [address] * Pap Test (07/28/2024 12:00 AM EST) Report [address] [address] Head End Desizing Machine Operator: Hermilo Medeiros MD [employer] Cytology Report FINAL DIAGNOSIS A. PAP SMEAR (THIN PREP) CE: SPECIMEN ADEQUACY: Satisfactory for evaluation; transformation zone present. INTERPRETATION: NEGATIVE FOR INTRAEPITHELIAL LESION OR MALIGNANCY. This specimen was analyzed by the automated ThinPrep Imaging System ([employer] and the selected lagunas were reviewed by a patient account specialist. Electronically Signed Out By: MATHEW Bruner(ASCP) The Pap test is a screening test primarily for squamous cancers and precursors and has associated false-negative and false-positive results. New technologies such as liquid-based preparations may decrease but will not eliminate all false-negative results. Regular sampling and follow-up of unexplained clinical signs and symptoms are recommended to minimize false negative results. PROCEDURES/ADDENDA HPV Testing (Requested) Ordered Date: 07/29/2024 A. PAP SMEAR (THIN PREP) CE: High-risk HPV Panel w/ extended genotyping NEG HPV 16-NEG HPV 18-NEG HPV 45-NEG HPV 33/58-NEG HPV 31-NEG HPV 56/59/66-NEG HPV 51-NEG HPV 52-NEG HPV 35/39/68-NEG Performed by real-time polymerase chain reaction (PCR) at [facility], [address] [place] [address] using the FDA-approved [employer] Onclarity9 HPV Assay with extended genotyping. Uses of the assay in scenarios other than those approved by the FDA should be considered off-label use. The accuracy and precision of this test for all other off-label specimen sources has been verified in the Cytopathology Laboratory of the [facility] and has not been cleared or approved by the U.S. Food and Drug Administration. Clinical correlation is advised. The assay assesses the E6/E7 DNA target and utilizes human beta globin as an internal control. Cytology and HPV testing are screening assays and should not be used as the sole means of detecting cancer. False-positives and false-negatives can occur. CLINICAL HISTORY Date of Last Menstrual Period: Not Provided Menstrual History: Unknown Contraceptive History: IUD Other Clinical Conditions: Screening Pap SPECIMEN SOURCE A: PAP SMEAR (THIN PREP) CE Patient Name: BERT SHINE : 1990 (Age: 34) Sex: F Institution: [facility] Location: [facility] Date of Collection: 07/28/2024 Date of Reported: 08/03/2024 15:13 Results to: Patricia Leon MD [facility] Final Diagnosis A. PAP SMEAR (THIN PREP) CE: SPECIMEN ADEQUACY: Satisfactory for evaluation; transformation zone present. INTERPRETATION: NEGATIVE FOR INTRAEPITHELIAL LESION OR MALIGNANCY. This specimen was analyzed by the automated ThinPrep Imaging System ([employer] and the selected lagunas were reviewed by a patient account specialist. [facility] Results\Inter pretation A. PAP SMEAR (THIN PREP) CE: High-risk HPV Panel w/ extended genotyping NEG HPV 16-NEG HPV 18-NEG HPV 45-NEG HPV 33/58-NEG HPV 31-NEG HPV 56/59/66-NEG HPV 51-NEG HPV 52-NEG HPV 35/39/68-NEG Performed by real-time polymerase chain reaction (PCR) at [facility], [address] [place] [address] using the FDA-approved [employer] Onclarity HPV Assay with extended genotyping. Uses of the assay in scenarios other than those approved by the FDA should be considered off-label use. The accuracy and precision of this test for all other off-label specimen sources has been verified in the Cytopathology Laboratory of the [facility] and has not been cleared or approved by the U.S. Food and Drug Administration. Clinical correlation is advised. The assay assesses the E6/E7 DNA target and utilizes human beta globin as an internal control. Cytology and HPV testing are screening assays and should not be used as the sole means of detecting cancer. False-positives and false-negatives can occur. [facility] Conversion Type (Conversion Source) 07/28/2024 07/29/2024 9:05 AM EST us Patricia Leon MD CYTOLOGY ORDERABLES Edited Re sult - Final [facility] [address] [place] [address] from Last 3 Months or Most Recently Relevant to Health Maintenance Insurance MEDICARE PART A & B Member Subscriber Plan / Payer (Ef fective 2017-Present) Name:Bert Shine Member ID:[id number] Relation to Subscriber:Self Name:Rodri Sahu [place]ka Subscriber ID:[id number] Payer ID:[id number] Group ID:Not on file Type:Medicare Address: [employer] [address] CARE MEDICARE REPLACEMENT MEDICARE PART A & B CARE MEDICARE REPLACEMENT MEDICARE PART A & [place] [address] [place] [address] CARE MEDICARE REPLACEMENT MEDICARE PART A & B [facility] CARE MEDICARE REPLACEMENT MEDICARE PART A & B CARE MEDICARE REPLACEMENT MEDICARE PART A & B MEDICARE REPLACEMENT [facility] MEDICARE PART A & B MEDICARE PART A & B MEDICARE PART A & B Care Teams Station Engineer Relationship Specialty Start Date End Date Pcp, Unknown PCP - General 08/14/23 Suleiman Penaloza MD [email or web address] LMR Provider 04/16/17 Additional Source Comments The information contained in this document represents components of the legal health record. It is not the complete legal health record.[facility]
[2025-06-02 00:26] VITALS: BP 135/84; PULSE 76; RESP 18; TEMP 36.9; O2SAT 100
== END 2025-06-02 00:27 | disposition home or self-care (01) ==
PROVIDERS: Emergency Provider Emergency Medicine
DX: U07.1 COVID-19 (principal); R31.9 Hematuria, unspecified; Z79.899 Other long term (current) drug therapy
CPT/HCPCS: 36415; 80053; 81001; 81025; 85025; 99284

== ENCOUNTER 2025-06-17 12:16 | Emergency (ER) | payer OTHER, SELFPAY ==
--- OUTSIDE RECORDS SUMMARY | 2025-06-15 11:00 | XMS_ITS | Encounter Summary ---
Author Organization Located Within [facility] Address [address] [place] [id number] Phone Care Team Providers Care Health Education Coordinator Name Role Phone Suleiman Penaloza MD Unavailable [facility] [email or web address] Pcp, Unknown Primary Care Provider Unavailabl e Reason for Visit * Treatment and Therapy Plan (Routine) - Authorized Specialty Diagnoses / Procedures Referred By Contac t Referred To Contact Infusion Therapy Diagnoses Systemic lupus erythematosus, unspecified SLE type, unspecified organ involvement status Procedures PA INJECTION, BELIMUMAB, 10MG Martin, Con Anglin MD [address] [place] [address] Phone: tel: fax: [email or web address] [address] [place] [address] Phone: tel: fax: Referral ID Status Reason Start Date Expiration Date V isits Requested Visits Authorized [id number] Authorized 07/12/2023 07/29/2038 99 99 Encounter Details Date Type Department Care Team (Late st Contact Info) Description 06/15/2025 11:00 AM EST Infusion [facility] [address] [place] [address] Sabine Cruz MD, MPH [address] [facility], [address] [place] [address] [email or web address] Systemic lupus erythematosus, unspecified SLE type, unspecified organ involvement status (Primary Dx) Social History Tobacco Use Types Packs/Day Years [...] on file documented as of this encounter Last Filed Vital Signs Vital Sign Reading Time Taken Comments Blood Pressure 117/75 06/15/2025 12:22 PM EST Pulse 60 06/15/2025 12:22 PM EST Temperature 36.9 C (98.5 F) 06/15/2025 12:22 PM EST Respiratory Rate 16 06/15/2025 12:22 PM EST Oxygen Saturation 100% 06/15/2025 12:22 PM EST Inhaled Oxygen Concentration - - Weight 50.8 kg (112 lb) 06/15/2025 9:54 AM EST Height - - Body Mass Index 18.64 02/16/2025 9:37 AM EDT documented in this encounter Progress Notes * Melody Allen RN - 06/15/2025 11:00 AM EST Patient here for Benlysta infusion. Patient reports that their symptoms have been stable except today reports some blood in urine today without burning, frequency, or urgency. Encouraged pt to followup with PCP if UTI symptoms are starting. Pt premedicated with tylenol, and zyrtec. Infusion over one hour tolerated well. documented in this encounter Plan of Treatment Upcoming Encounters Date Type Department Care Team (Late st Contact Info) Description 07/13/2025 11:00 AM EST Infusion [facility] [address] [place] [id number] Sabine Cruz MD, MPH [address] [place] [phone] 08/10/2025 11:00 AM EST Infusion [facility] [address] [place] [id number] Sabine Cruz MD, MPH [address] [place] [id number] 08/24/2025 1:10 PM EST Office Visit Located Within [facility] [address] [place] [id number] Sabine Cruz MD, MPH [address] [place] [phone] 09/07/2025 11:00 AM EDT Infusion [facility] [address] [place] [phone] Sabine Cruz MD, MPH [address] [place] [phone] 10/05/2025 11:00 AM EDT Infusion [facility] [address] [place] [address] Sabine Cruz MD, MPH [address] [place] [id number] 11/02/2025 11:00 AM EDT Infusion [facility] [address] [place] [address] Sabine Cruz MD, MPH [address] [place] [id number] 11/30/2025 11:00 AM EDT Infusion [facility] [address] [place] [address] Sabine Cruz MD, MPH [address] [place] [id number] 12/28/2025 11:00 AM EDT Infusion [facility] [address] [place] [address] Sabine Cruz MD, MPH [address] [place] [phone] 01/25/2026 11:00 AM EDT Infusion [facility] [address] [place] [address] Sabine Cruz MD, MPH [address] [place] [id number] 02/22/2026 11:00 AM EDT Infusion [facility] [address] [place] [address] Sabine Cruz MD, MPH [address] [place] [id number] 03/22/2026 11:00 AM EDT Infusion [facility] [address] [place] [phone] Sabine Cruz MD, MPH [address] [place] [phone] 04/19/2026 11:00 AM EDT Infusion [facility] [address] [place] [address] Sabine Cruz MD, MPH [address] [facility], [address] [place] [address] [email or web address] documented as of this encounter Visit Diagnoses Diagnosis Systemic lupus erythematosus, unspecified SLE type, unspecified organ involvement status- Primary documented in this encounter Administered Medications Inactive Administered Medications - up to 3 most recent administrations Medication Order MAR Action Action Date Dose Rate Site acetaminophen (TYLENOL) tablet 650 mg 650 mg, Oral, Once, On Rena 06/15/25 at 1030, For 1 dose, Administer at least 30 mins prior to principal medication.Indications:System ic lupus erythematosus, unspecified SLE type, unspecified organ involvement status Given 06/15/2025 10:02 AM EST 650 mg belimumab (BENLYSTA) 10 mg/kg = 512 mg in sodium chloride 0.9% 250 mL IVPB 512 mg (rounded from 513 mg = 10 mg/kg 51.3 kg), Intravenous, Administer over 1 Hours, at 250 mL/hr, Once, On Rena 06/15/25 at 1100, For 1 doseIndications:Systemic lupus erythematosus, unspecified SLE type, unspecified organ involvement status New Bag 06/15/2025 11:09 AM EST 512 mg 250 mL/hr cetirizine (ZyrTEC) tablet 10 mg 10 mg, Oral, Once as needed, Adjunct treatment for mild-moderate, or SEVERE reaction., Starting on Rena 06/15/25 at 1030, For 1 dose, HOLD IF: given fexofenadine.Indications:Syst emic lupus erythematosus, unspecified SLE type, unspecified organ involvement status Given 06/15/2025 10:02 AM EST 10 mg documented in this encounter Care Teams Health Education Coordinator Relationship Specialty Start Date End Date Pcp, Unknown PCP - General 08/14/23 Suleiman Penaloza MD [email or web address] LMR Provider 04/16/17 documented as of this encounter Additional Source Comments The information contained in this document represents components of the legal health record. It is not the complete legal health record.Located Within [facility]
--- NOTE | ~2025-06-17 | CT_ITS ---
CLINICAL HISTORY: flank pain, hx of stones CT abdomen and pelvis without contrast Comparison: None available Findings: No hydronephrosis. Numerous bilateral renal stones. Bilateral nephrolithiasis measures up to 6 mm. The right kidney is smaller than the left, which could be secondary to scarring. No bladder stone. No consolidation at the lung bases. Mild bronchial wall thickening with mucous plugging greatest in the right middle lobe and lingula. Right lower lobe thin-walled pulmonary cyst measuring 1.6 cm. Unremarkable gallbladder. Retroverted uterus. Intrauterine device in appropriate position. The other solid organs are normal. No bowel wall thickening or dilation. A normal appendix is identified. Normal vasculature. No lymphadenopathy. Trace pelvic free fluid, likely physiologic. No acute fracture. Impression: No urinary tract obstruction or other acute findings. This document has been electronically signed by: Aicha Wagner MD on 06/17/2025 16:50:36
[2025-06-17 13:00] VITALS: BP 125/79; PULSE 76; RESP 18; TEMP 36.5; O2SAT 100; BMI 18.4
--- NOTE | 2025-06-17 13:04 | ED.ABDPAIN ---
HPI - Abdominal Pain General Chief Complaint: Abdominal Pain Stated Complaint: blood in urine Time Seen by Provider: 06/17/25 15:03 Source: patient Mode of arrival: ambulatory Limitations: no limitations History of Present Illness ED Provider: Chata Tannre PA-C HPI narrative: Patient is a 35 year old female with a history of kidney stones and lymphadenopathy presenting to the emergency department today with right sided abdominal pain + back pain and blood in her urine. Patient states that over the last 2 days she has had right sided low back pain, abdominal pain, and blood in her urine. Patient states that she has a history of kidney stones and is not sure if this is one of those. Patient states she has an IUD and she is wondering if it is in the appropriate position. Patient denies any other complaints at this time. Related Data Home Medications ?Medication ?Instructions ?Recorded ?Confirmed cetirizine 10 mg tablet (Zyrtec) 10 mg PO DAILY PRN 07/10/20 07/10/20 hydroxychloroquine 200 mg tablet 200 mg PO DAILY 08/21/21 (Plaquenil) prednisone 10 mg tablet 15 mg PO DAILY 08/21/21 Allergies Allergy/AdvReac Type Severity Reaction Status Date / Time metronidazole (From FLAGYL) Allergy Unknown UNKNOWN Verified 06/17/25 13:02 Review of Systems Constitutional: Reports as per HPI Eyes: Reports as per HPI Reports as per HPI Cardiovascular: Reports as per HPI Respiratory: Reports as per HPI Gastrointestinal: Reports as per HPI Genitourinary: Reports as per HPI Musculoskeletal: Reports as per HPI Skin/Breast: Reports as per HPI Reports as per HPI Psychiatric: Reports as per HPI Endocrine: Reports as per HPI Hematologic/Lymphatic: Reports as per HPI Allergic/Immunologic: Reports as per HPI PMFSH Past Medical History Attestation statement: The following information was validated with the patient. Source: old records reviewed and nursing notes reviewed Medical History Lymphadenopathy Fatigue Physical Exam ED Vital Signs: Vital Signs - 24 hr 06/17/25 13:00 06/17/25 15:45 06/17/25 17:28 Temperature 97.7 F 98.1 F 98.1 F Pulse Rate 76 71 71 Respiratory Rate 18 16 16 Blood Pressure 125/79 135/86 135/86 Pulse Oximetry 100 100 100 Oxygen Delivery Method Room Air Room Air Room Air BMI result Body Mass Index 18.4 Const General: cooperative, no acute distress, alert and awake Nutritional Appearance: well nourished Orientation/consciousness: patient oriented x3 HENMT Head: Yes normal to inspection and Yes atraumatic Ears: hearing grossly normal bilaterally and external ears normal General nose exam: Normal external nose present, no nasal discharge noted and no epistaxis Face and sinus: Yes normal facial exam, No abrasion and No laceration Mouth: Normal oral and palatal mucosa present, no drooling and no muffled voice Eyes General: appearance normal, both eyes and all related structures Periorbital: periorbital findings normal Eyelids: Yes eyelids normal Conjunctivae: conjunctivae normal Pupils: Equal, round and reactive pupils present EOM: EOMs intact bilaterally Neck Neck: Yes normal visual inspection and Yes full ROM Resp Effort & Inspection: normal respiratory effort and able to speak in complete sentences Neuro General: patient oriented x3, moves all extremities and CN's II-XI intact bilaterally Cranial nerves: Yes Equal, round and reactive pupils present Cognition (Neuro): normal cognition Extrem General: Yes normal to inspection, Yes full ROM and Yes capillary refill normal Psych Appearance: grossly normal Mental Status: mental status grossly normal Affect: normal affect Attitude: cooperative Thought process: Normal thought process present Thought content: Normal thought content present Insight: Good insight present (Psych) Course Course Course Narrative: Gabriella Burgess CHEF 06/17 0653 This is a rapid medical exam. Deferred additional HPI, ROS, PE to primary provider. 35 yo female here with complaints of abdominal pain, back pain, hematuria x 48 hrs. Will obtain labs, UA, ur preg VSS Medical Decision Making Medical Decision Making MDM Narrative: Patient is a 35 year old female with a history of kidney stones and lymphadenopathy presenting to the emergency department today with right sided abdominal pain + back pain and blood in her urine. Patient's physical exam was as noted in the physical exam portion of this note Patient's blood work was unremarkable. Patient's urine showed blood but was otherwise unremarkable. Patient's CT abd/pelvis showed no acute process but did show an incidental finding of a right lower lobe thin-walled pulmonary cyst measuring 1.6cm. Also showed the patient's IUD is in the appropriate position. I am suspicious the patient passed a kidney stone and is having residual pain vs. renal colic. I explained my physical exam findings as well as all test results to the patient. I answered all questions asked by the patient. I stressed the importance of the patient taking her medication as directed (either prescribed or as the over the counter packaging recommends). I stressed the importance of the patient following up with her primary care provider. I stressed the importance of the patient returning to the emergency department immediately if her symptoms were to worsen or if she were to develop any dizziness, shortness of breath, difficulty breathing, chest pain, blurry vision, loss of vision, nausea, vomiting, abdominal pain, fever, chills, back pain, or any other complaints. Patient verbalized agreement and understanding with this treatment plan and discharge. Differential Diagnosis Differential Diagnoses: The differential diagnosis associated with the presentation includes Flank pain Kidney stone Pyelonpehritis UTI Passed stone Admission/Observation Consideration of admission/observation: Escalation of care including admission/observation considered Patient would have been admitted to the hospital had her work up had any findings where hospital admission was appropriate and her clinical presentation warranted hospital admission. Lab Data [facility] Lab Attestation statement: I reviewed the patient's lab results. My interpretation of these results are in the [facility] Rationale portion of this note. 06/17/25 13:14 06/17/25 13:14 Labs: Lab Results 06/17/25 06/17/25 Range/Units 13:14 13:19 WBC 3.0 L (4.8-10.8) X10*3/uL RBC 4.13 L (4.20-5.50) X10*6/uL Hgb 11.0 L (12.0-16.0) g/dl Hct 33.6 L (37.0-47.0) % MCV 81.4 (80.0-98.0) fL MCH 26.6 L (27.0-33.0) pg MCHC 32.7 (31.0-35.0) g/dl RDW 13.9 (11.0-16.0) % Plt Count 126 L (160-400) X10*3/uL MPV 11.3 (9.4-12.3) fL Immature Gran % (Auto) 0.3 (0.0-0.4) % Neut % (Auto) 74.2 H (45-73) % Lymph % (Auto) 11.6 L (20-40) % [place] % (Auto) 13.6 H (2-11) % Eos % (Auto) 0.0 (0-4) % Baso % (Auto) 0.3 (0-2) % Lymph # (Auto) 0.4 L (1.2-4.9) X10*3/uL [place] # (Auto) 0.4 (0.1-1.2) X10*3/uL Eos # (Auto) 0.0 (0.0-0.4) X10*3/uL Baso # (Auto) 0.0 (0.0-0.2) X10*3/uL Abs Immat Gran (auto) 0.01 (0.00-0.03) X10*3/uL Absolute Neuts (auto) 2.2 (2.0-8.3) x10*3/uL Absolute Nucleated RBC 0.000 (0.0-0.012) X10*3/uL Nucleated RBC % (auto) 0.0 (0.0-0.2) /100WBC Smear Tech's Comments VERIFIED Sodium 141 (135-145) mmol/L Potassium 3.5 (3.3-5.1) mmol/L Chloride 110 H (96-108) mmol/L Carbon Dioxide 23 (22-29) mmol/L Anion Gap 12 (12-20) BUN 11 (9-16) mg/dL Creatinine 0.78 (0.5-1.4) mg/dL Estim Creat Clear Calc 78.2 Estimated GFR > 60 Random Glucose 90 (60-115) mg/dL Calcium 9.2 (8.4-10.2) mg/dL Total Bilirubin 0.4 (0.0-1.0) mg/dL Direct Bilirubin 0.1 (0.0-0.5) mg/dL AST 22 (5-31) U/L ALT 16 (0-31) U/L Alkaline Phosphatase 71 (39-117) U/L Total Protein 7.4 (6.5-8.0) g/dL Albumin 4.7 (3.5-5.0) g/dL Urine Color Other A Urine Appearance Cloudy Urine pH 7.0 (5.0-9.0) Ur Specific [place] 1.015 (1.005-1.025) Urine Protein 30 (1+) H (Neg-Trace) mg/dL Urine Glucose (UA) Negative (Negative) mg/dL Urine Ketones Negative (Negative) mg/dL Urine Blood Large (3+) H (Negative) Urine Nitrite Negative (Negative) Ur Leukocyte Esterase Negative (Negative) Urine RBC >20 H (0-2) /HPF Urine WBC 0-5 (0-5) /HPF Ur Squamous Epith Cells 3-5 (0-2) /HPF Urine Bacteria None Seen (None Seen) Hyaline Casts 0-2 (0-2) /LPF Urine Test NEGATIVE (NEGATIVE) Independent Interpretation I performed an independent interpretation of an: CT Scan Interpretation: My interpretation is in agreement with the radiologist's impression of this imaging study as written below. CLINICAL HISTORY: flank pain, hx of stones CT abdomen and pelvis without contrast Comparison: None available Findings: No hydronephrosis. Numerous bilateral renal stones. Bilateral nephrolithiasis measures up to 6 mm. The right kidney is smaller than the left, which could be secondary to scarring.No bladder stone. No consolidation at the lung bases. Mild bronchial wall thickening with mucous plugging greatest in the right middle lobe and lingula. Right lower lobe thin-walled pulmonary cyst measuring 1.6 cm. Unremarkable gallbladder. Retroverted uterus. Intrauterine device in appropriate position. The other solid organs are normal. No bowel wall thickening or dilation. A normal appendix is identified. Normal vasculature. No lymphadenopathy. Trace pelvic free fluid, likely physiologic. No acute fracture. Impression: No urinary tract obstruction or other acute findings. This document has been electronically signed by: Aicha Wagner MD on 06/17/2025 16:50:36 Dictated By: Aicha Quezada MD Signed By: Electronically signed by Aicha Quezada MD 06/17/25 [id number] Radiology Impression Discussion of test interpretation with radiology: I have reviewed the radiologist's reading. Medications Administered Discontinued Medications Generic Name Dose Route Start Last Admin Trade Name Freq PRN Reason Stop Dose Admin Sodium Chloride 1,000 mls @ 999 mls/hr 06/17/25 15:15 06/17/25 17:13 Ns IV 06/17/25 16:15 Infused .Q1H1M YOLANDA Infusion Ketorolac Tromethamine 15 mg 06/17/25 15:06 06/17/25 15:52 Ketorolac Tromethamine 15 Mg/Ml Vial IVPUSH 06/17/25 15:07 Not Given ONCE ONE Discharge Plan Discharge Clinical Impression: Flank pain Qualifiers: Laterality: right Qualified Code(s): R10.A1 - Flank pain, right side Hematuria Qualifiers: Hematuria type: unspecified type Qualified Code(s): R31.9 - Hematuria, unspecified Patient Disposition: Home, Self-Care Instructions: Hematuria (ED), Flank Pain (ED) Additional Instructions: Your work up today was reassuring there is no EMERGENT cause for your symptoms. I am suspicious you may have passed a kidney stone. Your scan did show an incidental finding of a right lower lobe thin-walled pulmonary cyst measuring 1.6cm. This needs to be followed up on by your primary care provider. IF you are prescribed home medications and/or you are taking over the counter medications at home - it is very important you continue to do so as prescribed / directed unless told otherwise by a healthcare provider. Follow up with your primary care provider. Do your best to stay well hydrated and rest. Return to the emergency department immediately if your symptoms worsen or if you develop any numbness, tingling, dizziness, shortness of breath, difficulty breathing, chest pain, blurry vision, loss of vision, nausea, vomiting, abdominal pain, fever, chills, back pain, or any other complaints. Please see the information below about our Patient Portal. If you are not yet enrolled in the [facility] Patient Portal, you will receive an enrollment email invitation following your visit to any [facility] care setting. You may also self-enroll in the Patient Portal by visiting our website: [email or web address] The following information is required to access the Patient Portal: - Your [facility] Medical Record Number - Your personal home email address (must match what is in your electronic medical record, Registration staff can assist with this) - Name - Date of Capabilities of the Patient Portal: - Message some providers - View upcoming appointments - Access your health summary, medical history, and visit history - View current conditions and allergies - View procedure and lab results - View your medications, including guidelines, side effects, and precautions - Complete pre-appointment questionnaires requested by your provider - Ready summary reports of your office visits and procedures To access the Patient Portal Mobile [employer], follow these directions: - Search [employer] in the [employer] Store or [email or web address] Store - Download the [employer] - Search for [facility] - Enter your login/password Prescriptions: No Action cetirizine [Zyrtec] 10 mg tablet 10 mg PO DAILY PRN prednisone 10 mg tablet 15 mg PO DAILY hydroxychloroquine [Plaquenil] 200 mg tablet 200 mg PO DAILY Referrals: Oksana Nicole FILLING WINDER [Primary Care Provider, Primary Care] Interventions: ED Discharge Assessment Last Done: 06/17/25 17:28 Discharge Date/Time: 06/17/25 17:43 Print Language: Tajik
--- OUTSIDE RECORDS SUMMARY | 2025-06-17 13:16 | XMS_ITS | Clinical Summary ---
Author Organization [employer] Address [address] [facility] [address] [place] [address] Care Team Providers Care V Groove Cutter Name Role Phone Oksana Nicole COREMAKER BENCH Primary Care Provider [phone] Allergies Active Allergy Reactions Criticality Noted Date [...] twice daily 150 g 11 025 Active acetaminophen (Tylenol 8 Hour) 650 MG ER tabletIndication s:Open fracture of tooth, initial encounter,Pain, dental Take 1 tablet (650 mg) by mouth every 8 (eight) hours if needed for mild pain. Do not crush, chew, or split. 15 tablet 025 Active ibuprofen 600 MG tabletIndication s:Open fracture [...] eorder (will not trigger notification to Pharmacy)) ibuprofen 600 MG tabletIndication s:Polyarthralgia Take 1 tablet (600 mg) by mouth 3 times daily. 90 tablet 025 2024 Additional Information Patient not taking.Reported on 05/29/2025 amoxicillin (Amoxil) 500 MG capsuleIndicatio ns:Open fracture of tooth, initial encounter,Pain, dental Take 1 capsule (500 mg) by mouth every 8 (eight) hours for 7 days. 21 capsule 2024 Active Problems Problem Noted Date Diagnosed [...] left side 07/10/2022 Vitamin D deficiency 07/10/2022 long term (current) use of oral hypoglycemic serge josesito 08/14/2021 Overview (04/05/2025): Last Assessment & Plan: Carefully take exactly as prescribed. Daily sun protection all year round, particularly during spring and summer months. Make sure to follow with injection molder at least every 12 months. Last Assessment & Plan: Reminded to get monitoring labs prior to each every days Benlysta infusions. Disorder of eye 08/14/2021 [...] hospital encounter of 02/04/19 (from the past 23920 hour(s)) DXA Monitoring Narrative This is a [...] supplementation - monitoring labs Systemic lupus erythematosus ([facility]) 8 Overview (04/05/2025): hydroxychloroquine 2021 to current [...] Overview (04/05/2025): Last Assessment & Plan: [place] long term current use of systemic steroids 06/11 Overview (04/05/2025): Last Assessment & Plan: Discussed long-range side effects of low-dose glucocorticoids which are necessary for treatment of her lupus. 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 We discussed the temporary nature of [...] Megha Powell M.D., Director Clinical Immunology Laboratory [id number] Normal: Negative at 1:10 Anti-port gamble DNA Antibodies detected on Crithidia Luciliae Substrate [...] other rheumatic diseases or in drug-induced SLE. Krdv-bdrlla-sdpwxfcc DNA antibodies are usually detected in SLE [...] Description 05/29/2025 11:30 AM EST Office Visit [facility] ADULT DENTAL [address] [place] [address] Michael Adams DDS Open fracture of tooth, initial encounter (Primary Dx); Pain, dental 05/05/2025 2:45 PM EST Office Visit [facility] MED & PEDS [address] [place] [address] Oksana Nicole CNP Encounter for physical examination (Primary Dx); Polyarthralgia; Impacted cerumen of right ear; Systemic lupus erythematosus, unspecified SLE type, unspecified organ involvement status (CMS/HCC) ([facility]); Medial epicondylitis of right elbow 05/05/2025 Travel 04/27/2025 Patient Outreach [facility] [address] [place] [id number] Bradley Rosas MD Pre-visit Planning (Pre visit planning LVM ) 04/11/2025 Patient Outreach [facility] [address] [place] [id number] Bradley Rosas MD Pre-visit Planning (Pre visit planning LVM ) 04/07/2025 Travel 04/06/2025 Travel 04/05/2025 Telephone [facility] PED[facility] [address] [place] [address] Mignon Marie MA chart prep 03/30/2025 Patient Outreach [facility] [address] [place] [address] Bradley Rosas MD Pre-visit Planning (Pre visit planning LVM ) from Last 3 Months Family History Medical [...] is your housing situation today? I have premkirk candelaria 05/05/[address] you [...] 05/05/2025 2:46 PM EST Plan of Treatment Health Maintenance Due Date Last Done Comments [...] Bitewings 02/11/2025 02/11/20 24, 11/29/2015 COVID-19 Vaccine ( - 2024-2 6 season) 2025 Influenza Vaccine [...] Relevant to Health Maintenance Insurance [facility] < [address] [facility] Care Teams V Groove Cutter Relationship Specialty Start Date End Date Oksana Nicole CNP [address] [place] [phone] PCP - General Family Medicine 05/05/25
--- OUTSIDE RECORDS SUMMARY | 2025-06-17 13:16 | XMS_ITS | Encounter Summary ---
Author Organization [employer] Address [address] [place] [address] Care Team Providers Care Ice Cream Shop Associate Name Role Phone Oksana Nicole CNP Primary Care Provider [phone] Encounter Details Date Type Department Care Team (Late st Contact Info) Description 07/21/2024 Telephone C [facility]ULT [facility]AL [address] [place], [place] [phone] Michael Adams DDS [address] [place], [place] [phone] Social History Tobacco Use Types Packs/Day Years [...] for antibiotic [facility] documented in this encounter Plan of Treatment Not on file documented as of this encounter Visit Diagnoses Not on filedocumented in this encounter Care Teams Ice Cream Shop Associate Relationship Specialty Start Date End Date Oksana Nicole CNP [address] [place] [phone] PCP - General Family Medicine 05/05/25 documented as of this encounter
--- OUTSIDE RECORDS SUMMARY | 2025-06-17 13:16 | XMS_ITS | Clinical Summary ---
Author Organization [facility] Address [address] [address] Phone Care Team Providers Care Windows Application Administrator Name Role Phone Suleiman Penaloza MD Unavailable [email or web address] Pcp, Unknown Primary Care Provider Unavailabl e [...] provided and patient encouraged to establish with eyelet row marker for both regular VFT and further mgmt [...] summer months. Make sure to follow with shipping and receiving operator at least every 12 months. Eye irritation [...] of this 30-minute visit was spent in vzqy-ci-ucur conversation. Assessment & Plan (08/28/2020 2:47 PM [...] hospital encounter of 02/04/19 (from the past 51384 hour(s)) DXA Monitoring Narrative This is a [...] hospital encounter of 02/04/19 (from the past 85280 hour(s)) DXA Monitoring Narrative This is a [...] for her. No current evidence of vasculopathy, TRAIN BRAKER involvement or nephritis. No change in medications. [...] Final Comment: Performing Physician, Jb Thornton M.D., [id number] Normal: Negative at 1:10 Anti-kotzebue DNA Antibodies detected on Crithidia Luciliae Substrate [...] other rheumatic diseases or in drug-induced SLE. Lqdm-fxliwv-myyebtmo DNA antibodies are usually detected in SLE [...] Final Comment: Performing Physician, Jb Thornton M.D., [id number] Normal: Negative at 1:10 Anti-kotzebue DNA Antibodies detected on Crithidia Luciliae Substrate [...] other rheumatic diseases or in drug-induced SLE. Xdxa-dprzif-jntudlap DNA antibodies are usually detected in SLE [...] Final Comment: Performing Physician, Jb Thornton M.D., [id number] Normal: Negative at 1:10 Anti-kotzebue DNA Antibodies detected on Crithidia Luciliae Substrate [...] other rheumatic diseases or in drug-induced SLE. Xsep-lhjzfh-ybnprizv DNA antibodies are usually detected in SLE [...] Megha Powell M.D., Director Clinical Immunology Laboratory [id number] Normal: Negative at 1:10 Anti-kotzebue DNA Antibodies detected on Crithidia Luciliae Substrate [...] other rheumatic diseases or in drug-induced SLE. Qnen-ecnsda-zwyzlber DNA antibodies are usually detected in SLE [...] of this 29-minute visit was spent in sncf-lr-xvzt conversation with her going over risks and [...] - 750 mIU/mL. 12 Weeks Post Conception: [id number] - 657114 mIU/mL. HCV 04/26/2019 NON-REACTIVE NON-REACTIVE Final HBV [...] 50% of this 29-minute visit was spent zpfp-zo-vzgn conversation with the patient going over the [...] Megha Powell M.D., Director Clinical Immunology Laboratory [id number] Normal: Negative at 1:10 Anti-kotzebue DNA Antibodies detected on Crithidia Luciliae Substrate [...] other rheumatic diseases or in drug-induced SLE. Ipta-rokiug-xdlqbcxo DNA antibodies are usually detected in SLE [...] Megha Powell M.D., Director Clinical Immunology Laboratory [id number] Normal: Negative at 1:10 Anti-kotzebue DNA Antibodies detected on Crithidia Luciliae Substrate [...] other rheumatic diseases or in drug-induced SLE. Osjb-mcwvoy-ahleufsx DNA antibodies are usually detected in SLE [...] of this 30-minute visit was spent in talo-rj-tjry conversation with the patient going over the [...] Problem Noted Date Diagnosed Date Resolved Date penitentiary current use of systemic steroids 06/11/2017 08/14/2023 [...] Megha Powell M.D., Director Clinical Immunology Laboratory [id number] Normal: Negative at 1:10 Anti-kotzebue DNA Antibodies detected on Crithidia Luciliae Substrate [...] other rheumatic diseases or in drug-induced SLE. Gosi-zkzmnj-wvtnxdsh DNA antibodies are usually detected in SLE [...] this 28 minute visit was spent in qtnp-kp-iyaq conversation with the patient going over the [...] Encounters Date Type Department Care Team Description 06/15/2025 11:00 AM EST Infusion [facility] [address] [place] [address] Sara Gay MD, MPH Systemic lupus erythematosus, unspecified SLE type, unspecified organ involvement status (Primary Dx) 05/18/2025 11:00 AM EST [facility]fusion [facility] [address] [place] [address] Sara Gay MD, MPH Systemic lupus erythematosus, unspecified SLE type, unspecified organ involvement status (Primary Dx) 04/21/2025 1:00 PM EDT Infusion [facility] [address] [place] [address] Sara Gay MD, MPH Systemic lupus erythematosus, [...] (112 lb) 06/15/2025 9:54 AM EST Height 165.1 cm (5' 5 ) 02/16/2025 9:37 AM EDT Body Mass Index 18.64 02/16/2025 9:37 AM EDT Plan of Treatment Upcoming Encounters Date Type Department Care Team (Late st Contact Info) Description 07/13/2025 11:00 AM EST Infusion [facility] [address] [place] [address] Sara Gay MD, MPH [address] [place] [address] 08/10/2025 11:00 AM EST Infusion [facility] [address] [place] [address] Sara Gay MD, MPH [address] [place] [address] 08/24/2025 1:10 PM EST Office Visit [facility] [address] [place] [phone] Sara Gay MD, MPH [address] [place] [address] 09/07/2025 11:00 AM EDT Infusion [facility] [address] [place] [address] Sara Gay MD, MPH [address] [place] [address] 10/05/2025 11:00 AM EDT Infusion [facility] [address] [place] [address] Sara Gay MD, MPH [address] [place] [address] 11/02/2025 11:00 AM EDT Infusion [facility] [address] [place] [address] Sara Gay MD, MPH [address] [place] [address] 11/30/2025 11:00 AM EDT Infusion [facility] [address] [place] [address] Sara Gay MD, MPH [address] [place] [address] 12/28/2025 11:00 AM EDT Infusion [facility] [address] [place] [address] Sara Gay MD, MPH [address] [place] [address] 01/25/2026 11:00 AM EDT Infusion [facility] [address] [place] [address] Sara Gay MD, MPH [address] [place] [address] 02/22/2026 11:00 AM EDT Infusion [facility] [address] [place] [address] Saar Gay MD, MPH [address] [place] [address] 03/22/2026 11:00 AM EDT Infusion [facility] [address] [place] [address] Sara Gay MD, MPH [address] [place] [address] 04/19/2026 11:00 AM EDT Infusion [facility] [address] [place] [address] Sara Gay MD, MPH [address] [facility], [address] [place] [address] [email or web address] Health Maintenance Due Date Last Done Comments Adult Td,Tdap Booster 1990 DEPRESSION SCREENING 2000 HIV ONE-TIME SCREENING (18-65 YEARS) 2006 INFLUENZA VACCINE (#1) 2025 COVID-19 VACCINE (2024- season) 2025 PAP SMEAR 07/28/2027 07/28/2024, 03/30, 04/26/2019 IUD 07/28/2029 07/28/2024 HEPATITIS C SCREENING [...] this topic Medical Devices Implanted Type Area Slasher Tender Helper Device Identifier Shelf Expiration Date Model / [...] 136 - 145 mmol/L 05/18/2025 12:38 PM [facility] Potassium 3.8 3.4 - 5.1 mmol/L 05/18/2025 12:38 PM [facility] Chloride 105 98 - 107 mmol/L 05/18/2025 12:38 PM [facility] CO2 22 20 - 31 mmol/L 05/18/2025 12:38 PM [facility] Anion Gap 10 3 - 17 mmol/L 05/18/2025 12:38 PM [facility] BUN 19 6 - 23 mg/dL 05/18/2025 12:38 PM [facility] Creatinine 0.70 0.50 - 1.00 mg/dL 05/18/2025 12:38 PM [facility] eGFR 115 >59 mL/min/1.7 3m2 05/18/2025 12:38 PM [facility] Comment:Estimated glomerular filtration rate calculated using the CKD-EPI refit equation. Glucose 82 70 - 99 mg/dL 05/18/2025 12:38 PM [facility] Calcium 8.9 8.5 - 10.5 mg/dL 05/18/2025 12:38 PM [facility] AST 14 <33 U/L 05/18/2025 12:38 PM [facility] ALT 10 <34 U/L 05/18/2025 12:38 PM [facility] Alkaline Phosphatase 74 40 - 130 U/L 05/18/2025 12:38 PM [facility] Bilirubin, Total 0.2 0.0 - 1.2 mg/dL 05/18/2025 12:38 PM [facility] Total Protein 7.5 6.4 - 8.3 g/dL 05/18/2025 12:38 PM [facility] Albumin 4.5 3.5 - 5.2 g/dL 05/18/2025 12:38 PM [facility] Globulin 3.0 1.9 - 4.1 g/dL 05/18/2025 12:38 PM [facility] Blood (Blood) Venipuncture / Unknown 05/18/2025 11:12 AM EST 05/18/2025 11:29 AM EST us Sara Gay MD, MPH LAB BLOOD BKR ORDERABLES Final Result Performing Organization Address City/State/[facility] Co de Phone Number [facility] [address] [place] [address] * (ABNORMAL) CBC and Differential (05/18/2025 11:12 AM EST) WBC 2.19(L) 4.00 - 11.00 K/uL 05/18/2025 11:36 AM [facility] RBC 4.17 4.00 - 5.20 M/uL 05/18/2025 11:36 AM [facility] Hemoglobin 11.4(L) 12.0 - 16.0 g/dL 05/18/2025 11:36 AM [facility] Hematocrit 34.9(L) 36.0 - 46.0 % 05/18/2025 11:36 AM [facility] MCV 83.7 80.0 - 100.0 fL 05/18/2025 11:36 AM [facility] MCH 27.3 27.0 - 31.0 pg 05/18/2025 11:36 AM [facility] MCHC 32.7 32.0 - 36.0 g/dL 05/18/2025 11:36 AM [facility] MPV 11.9 8.4 - 12.0 fL 05/18/2025 11:36 AM [facility] RDW-CV 14.2 11.5 - 14.5 % 05/18/2025 11:36 AM [facility] PLT 122(L) 150 - 450 K/uL 05/18/2025 11:36 AM [facility] Neutrophils 69.4 % 05/18/2025 11:36 AM [facility] Lymphocytes 16.4 % 05/18/2025 11:36 AM [facility] Monocytes 13.2 % 05/18/2025 11:36 AM [facility] Eosinophils 0.0 % 05/18/2025 11:36 AM [facility] Basophils 0.5 % 05/18/2025 11:36 AM [facility] Imm Grans 0.5 % 05/18/2025 11:36 AM [facility] NRBC 0.0 <=0.0 /100 WBCs 05/18/2025 11:36 AM [facility] Absolute Neutrophils 1.52(L) 1.92 - 7.60 K/uL 05/18/2025 11:36 AM [facility] Comment:The reference range for individuals with the Soni null phenotype (Fy(a-b-)) is 1.21-5.39 K/uL. Absolute Lymphocytes 0.36(L) 0.72 - 4.10 K/uL 05/18/2025 11:36 AM [facility] Absolute Monocytes 0.29 0.16 - 1.10 K/uL 05/18/2025 11:36 AM [facility] Absolute Eosinophils 0.00 0.00 - 0.50 K/uL 05/18/2025 11:36 AM [facility] Absolute Basophils 0.01 0.00 - 0.15 K/uL 05/18/2025 11:36 AM [facility] Absolute Imm Grans 0.01 0.00 - 0.09 K/uL 05/18/2025 11:36 AM EST [facility] Absolute NRBC 0.00 <=0.00 K cells/uL 05/18/2025 11:36 AM [facility] Absolute Neutrophils 1.52(L) 1.92 - 7.60 K/uL 05/18/2025 11:36 AM [facility] Comment:Automated cell count . Manual ANC may differ if performed. Diff Type Auto 05/18/2025 11:36 AM [facility] Blood (Blood) Venipuncture / Unknown 05/18/2025 11:12 AM EST 05/18/2025 11:28 AM EST us Sara Gay MD, MPH LAB BLOOD BKR ORDERABLES Final Result Performing Organization Address [facility] Co de Phone Number [address] [address] * Double-Stranded DNA Antibodies (05/18/2025 11:12 AM EST) Double Stranded DNA Negative at 1:10 Negative at 1:10 05/19/2025 2:55 PM EST [facility] Blood (Blood) Venipuncture / Unknown 05/18/2025 11:12 AM EST 05/18/2025 11:29 AM EST us Sara Gay MD, MPH LAB BLOOD BKR ORDERABLES Final Result [address] [address] * Complement C3 (05/18/2025 11:12 AM EST) C3 88 81 - 157 mg/dl 05/19/2025 2:07 PM EST [facility] Blood (Blood) Venipuncture / Unknown 05/18/2025 11:12 AM EST 05/18/2025 11:26 AM EST us Sara Gay MD, MPH LAB BLOOD BKR ORDERABLES Final Result [address] [address] * Complement C4 (05/18/2025 11:12 AM EST) C4 32 12 - 39 mg/dL 05/19/2025 2:07 PM EST [facility] Blood (Blood) Venipuncture / Unknown 05/18/2025 11:12 AM EST 05/18/2025 11:26 AM EST Sara Gay MD, MPH LAB BLOOD BKR ORDERABLES Final Result Performing Organization Address City/[facility]/ZIP Co de Phone Number [address] [address] * Hepatitis C antibody, qualitative (09/15/2024 10:12 AM EDT) HCV NON-REACTIV E NON-REACTI VE [facility] Blood 09/15/2024 10:1 2 AM EDT 09/15/2024 10:20 AM EDT Sara Gay MD, MPH LAB BLOOD BKR ORDERABLES Final Result Performing Organization Address [facility] Co de Phone Number [address] [address] * Pap Test (07/28/2024 12:00 AM EST) Report [address] [address] Continuous Still Operator: Hermilo Medeiros MD NUT CULLER Cytology Report FINAL DIAGNOSIS A. PAP SMEAR (THIN PREP) CE: SPECIMEN ADEQUACY: Satisfactory for evaluation; transformation zone present. INTERPRETATION: NEGATIVE FOR INTRAEPITHELIAL LESION OR MALIGNANCY. This specimen was analyzed by the automated ThinPrep Imaging System (trueAnthem.) and the selected lagunas were reviewed by a photograph developer. Electronically Signed Out By: MATHEW Bruner(ASCP) The [...] by real-time polymerase chain reaction (PCR) at [facility], [address] [place] [address] using the FDA-approved GOkey Onclarity9 HPV Assay with extended genotyping. Uses of the assay in scenarios other than those approved by the FDA should be considered off-label use. The accuracy and precision of this test for all other off-label specimen sources has been verified in the Cytopathology Laboratory of the [facility] and has not been cleared or approved [...] : 1990 (Age: 34) Sex: F Institution: [facility] Location: [facility] Date of Collection: 07/28/2024 Date of Reported: 08/03/2024 15:13 Results to: Patricia Leon MD [facility] Final Diagnosis A. PAP SMEAR (THIN PREP) CE: SPECIMEN ADEQUACY: Satisfactory for evaluation; transformation zone present. INTERPRETATION: NEGATIVE FOR INTRAEPITHELIAL LESION OR MALIGNANCY. This specimen was analyzed by the automated ThinPrep Imaging System (trueAnthem.) and the selected lagunas were reviewed by a photograph developer. [facility] Results\Inter pretation A. PAP SMEAR (THIN PREP) CE: High-risk HPV Panel w/ extended genotyping NEG HPV 16-NEG HPV 18-NEG HPV 45-NEG HPV 33/58-NEG HPV 31-NEG HPV 56/59/66-NEG HPV 51-NEG HPV 52-NEG HPV 35/39/68-NEG Performed by real-time polymerase chain reaction (PCR) at [facility], [address] [place] [address] using the FDA-approved GOkey Onclarity HPV Assay with extended genotyping. Uses of the assay in scenarios other than those approved by the FDA should be considered off-label use. The accuracy and precision of this test for all other off-label specimen sources has been verified in the Cytopathology Laboratory of the [facility] and has not been cleared or approved by the U.S. Food and Drug Administration. Clinical correlation is advised. The assay assesses the E6/E7 DNA target and utilizes human beta globin as an internal control. Cytology and HPV testing are screening assays and should not be used as the sole means of detecting cancer. False-positives and false-negatives can occur. [facility] Conversion Type (Conversion Source) 07/28/2024 07/29/2024 9:05 AM EST us Patricia Leon MD CYTOLOGY ORDERABLES Edited Re sult - Final Performing Organization Address City/State/[facility] Co de Phone Number [facility] [address] [place] [address] from Last 3 Months or Most Recently Relevant to Health Maintenance Insurance MEDICARE PART A & B [facility] ONE CARE MEDICARE REPLACEMENT MEDICARE PART A & B [facility] CARE MEDICARE REPLACEMENT MEDICARE PART A & [place] [address] [place] [address] CARE MEDICARE REPLACEMENT MEDICARE PART A & B [facility] CARE MEDICARE REPLACEMENT THI PEREZ [id number] MEDICARE PART A & B Member Subscriber Plan / Payer ( fective 2017-Present) Name:Bert Shine Member ID:[id number] Relation to Subscriber:Self Name:Bert Shine Subscriber ID:[id number] Payer ID:[id number] Group ID:Not on file Type:Medicare Address: [facility] [address] CARE MEDICARE REPLACEMENT THI PEREZ [facility] MEDICARE PART A & B CARE MEDICARE REPLACEMENT MEDICARE PART A & B MEDICARE PART A & B MEDICARE PART A & B Care Teams Windows Application Administrator Relationship Specialty Start Date End Date Pcp, Unknown PCP - General 08/14/23 Suleiman Penaloza MD [email or web address] LMR Provider 04/16/17 Additional Source Comments The information contained in this document represents components of the legal health record. It is not the complete legal health record.[facility]
--- OUTSIDE RECORDS SUMMARY | 2025-06-17 13:16 | XMS_ITS | Encounter Summary ---
Author Organization [employer] Address [address] [place] [address] Care Team Providers Care Transit Manager Name Role Phone NicoleOksana NESHA Primary Care Provider [phone] Reason for Visit * Reason Onset Date Comments Ellis Lopes 03/06/2025 Encounter Details Date Type Department Care Team (Late st Contact Info) Description 03/06/2025 Telephone [facility] [address] [place], [place] [phone] Bradley Rosas MD [address] [place], [place] [phone] Ellis Lopes Social History Tobacco Use Types [...] requesting NEW PATIENT visit . Insurance name: [facility] Location: [facility] Demographic information updated documented in this encounter Plan of Treatment Not on file documented as of this encounter Visit Diagnoses Not on filedocumented in this encounter Care Teams Transit Manager Relationship Specialty Start Date End Date Oksana Nicole CNP [address] [place] [address] PCP - General Family Medicine 05/05/25 documented as of this encounter
--- OUTSIDE RECORDS SUMMARY | 2025-06-17 13:16 | XMS_ITS | Encounter Summary ---
Author Organization [facility] Address [address] [place], [place] [id number] Phone Care Team Providers Care Cylinder Tester Name Role Phone Suleiman Penaloza MD Unavailable [email or web address] Pcp, Unknown Primary Care Provider Unavailabl e Pcp, Unknown Primary Care Provider Unavailabl e Encounter Details Date Type Department Care Team (Late st Contact Info) Description 02/06/2023 Telephone Setup [place] [facility] [address] [place] [address] Ailin Irwin RN [address] [place] [address] [email or web address] Social History Tobacco Use Types Packs/Day Years [...] Description 07/13/2025 11:00 AM EST Infusion [facility] [address] [place] [phone] Sabine Cruz MD, MPH [address] [place] [id number] 08/10/2025 11:00 AM EST Infusion [facility] [address] [place] [address] 08178 Sabine Cruz MD, MPH [address] [place] [id number] 08/24/2025 1:10 PM EST Office Visit [facility] [address] [place] [phone] Sabine Cruz MD, MPH [address] [place] [phone] 09/07/2025 11:00 AM EDT Infusion [facility] [address] [place] [address] Sabine Cruz MD, MPH [address] [place] [phone] 10/05/2025 11:00 AM EDT Infusion [facility] [address] [place] [address] Sabine Cruz MD, MPH [address] [place] [address] [phone] 11/02/2025 11:00 AM EDT Infusion [facility] [address] [place] [address] Sabine Cruz MD, MPH [address] [place] [address] [phone] 11/30/2025 11:00 AM EDT Infusion [facility] [address] [place] [address] Sabine Cruz MD, MPH [address] [place] [phone] 12/28/2025 11:00 AM EDT Infusion [facility] [address] [place] [address] Sabine Cruz MD, MPH [address] [place] [address] [phone] 01/25/2026 11:00 AM EDT Infusion [facility] [address] [place] [phone] Sabine Cruz MD, MPH [address] [place] [phone] 02/22/2026 11:00 AM EDT Infusion [facility] [address] [place] [address] Sabine Cruz MD, MPH [address] [place] [phone] 03/22/2026 11:00 AM EDT Infusion [facility] [address] [place] [address] [phone] Sabine Cruz MD, MPH [address] [place] [phone] [email or web address] 04/19/2026 11:00 AM EDT Infusion [facility] [address] [place] [address] Sabine Cruz MD, MPH [address] [place] [address], [address] [place] [address] [email or web address] documented as of this encounter Visit Diagnoses Not on filedocumented in this encounter Care Teams Cylinder Tester Relationship Specialty Start Date End Date Pcp, Unknown PCP - General 02/28/22 08/13/23 Pcp, Unknown PCP - General 08/14/23 Suleiman Penaloza MD [email or web address] Historical LMR Provider 04/16/17 documented as of this encounter Additional Source Comments The information contained in this document represents components of the legal health record. It is not the complete legal health record.[facility]
[2025-06-17 13:29] LABS: Hematocrit 33.6 % (37.0-47.0); Hemoglobin 11.0 g/dl (12.0-16.0); Imm Gran Abs Auto 0.01 X10*3/uL (0.00-0.03); Imm Gran Pct Auto 0.3 % (0.0-0.4); Lymphocytes Absolute Auto 0.4 X10*3/uL (1.2-4.9); MANUAL DIFF FLAG SCAN; Mean Corpuscular HGB Conc 32.7 g/dl (31.0-35.0); Mean Corpuscular Hemoglobin 26.6 pg (27.0-33.0); Mean Corpuscular Volume 81.4 fL (80.0-98.0); NRBC Abs Auto 0.000 X10*3/uL (0.0-0.012); NRBC Pct Auto 0.0 /100WBC (0.0-0.2); PLT CLUMP 1; Red Blood Count 4.13 X10*6/uL (4.20-5.50); SCAN SMEAR FLAG 1
[2025-06-17 13:30] LABS: Appearance Urine Cloudy; Glucose Urine UA Negative (Negative); PH 7.0 (5.0-9.0); Specific Gravity - Urine 1.015 (1.005-1.025); UMIC TRIGGER UACC YES; UPreg QC Valid YES
[2025-06-17 13:35] LABS: White Blood Count 3.0 X10*3/uL (4.8-10.8)
[2025-06-17 13:44] LABS: Alanine Aminotransferase 16 U/L (0-31); Albumin Level 4.7 g/dL (3.5-5.0); Alkaline Phosphatase 71 U/L (39-117); Anion Gap 12 (12-20); Aspartate Amino Transferase 22 U/L (5-31); Blood Urea Nitrogen 11 mg/dL (9-16); Calcium 9.2 mg/dL (8.4-10.2); Carbon Dioxide 23 mmol/L (22-29); Chloride 110 mmol/L (96-108); Creatinine Clr Calc Pharmacy 78.2; Estimated Glomerular Filt Rate > 60; Potassium 3.5 mmol/L (3.3-5.1); Sodium 141 mmol/L (135-145); Total Protein 7.4 g/dL (6.5-8.0)
[2025-06-17 13:48] LABS: Platelet Count 126 X10*3/uL (160-400)
[2025-06-17 15:45] VITALS: BP 135/86; PULSE 71; RESP 16; TEMP 36.7; O2SAT 100
[2025-06-17 17:28] VITALS: BP 135/86; PULSE 71; RESP 16; TEMP 36.7; O2SAT 100
== END 2025-06-17 17:43 | disposition home or self-care (01) ==
PROVIDERS: Nurse Practitioner Family; Emergency Provider Emergency Medicine
DX: R10.A1 Flank pain, right side (principal); R31.9 Hematuria, unspecified; Z87.442 Personal history of urinary calculi
CPT/HCPCS: 36415; 74176; 80048; 80076; 81001; 81025; 85025; 96360; 99284; 99285

== ENCOUNTER → 2025-06-17 15:06 | Outpatient (BNV) | payer OTHER, SELFPAY | PROVIDERS: Visit Provider Radiology Diagnostic Radiology | DX: R10.A0 Flank pain, unspecified side (principal) | CPT/HCPCS: 74176 ==